=== PATIENT | female | born 1940 | race Caucasian/White ===

== ENCOUNTER → 2016-11-25 | Outpatient (CLI) | payer OTHER ==
[~2016-11-25] MED LIST: ATEN-173 PO; CHOL100027 PO; CRS/10 PO; ESCI1TAB6 PO; GABA-113 PO; HYDR25TA4 PO; IBUP600T44 PO; LOSA1TAB PO; MELO15TA4 PO; OMEG10002 PO; VITBC PO
--- NOTE | 2016-11-26 12:41 | MAMMOGRAPHY REPORT ---
BILATERAL DIGITAL SCREENING MAMMOGRAM WITH CAD: 11/25/2016 CLINICAL HISTORY: Routine screening. Patient has no complaints. TECHNIQUE: Bilateral CC and MLO views were obtained. Current study was also evaluated with a Comput er Aided Detection (CAD) system. COMPARISON: Comparison is made to exams dated: 11/22/2015 mammogram, 11/21/2014 mammogram, 11/01/2013 m ammogram, and 10/29/2012 mammogram - [facility]. BREAST COMPOSITION: There are scattered areas of fibroglandular density in both breasts. FINDINGS: There are scattered benign-appearing microcalcifications in the breasts. Stable nodulari ty within the left breast. No new suspicious mass, architectural distortion or cluster of microcalc ifications is seen. IMPRESSION: ACR BI-RADS CATEGORY 1: NEGATIVE There is no mammographic evidence of malignancy. A 1 year screening mammogram is recommended. The p atient will receive written notification of the results. Approximately 10% of breast cancers are not detected with mammography. A negative mammographic repor t should not delay biopsy if a clinically suggestive mass is present. Alona Coulter M.D. ay/:11/25/2016 15:59:35 Food And Beverage Service Manager: Maggie Romero, [facility] letter sent: Normal 1/2 BI-RADS Code: ACR BI-RADS Category 1: Negative
== END | disposition home or self-care (01) ==
LOC: C.MAMM 08:24
PROVIDERS: ATTEND Student in an Organized Health Care Education/Training Program
DX: Z12.31 Encounter for screening mammogram for malignant neoplasm of breast (principal)

== ENCOUNTER → 2017-11-26 | Outpatient (CLI) | payer OTHER ==
[~2017-11-26] MED LIST changes: -MELO15TA4 PO
--- NOTE | 2017-11-26 15:29 | MAMMOGRAPHY REPORT ---
BILATERAL DIGITAL SCREENING MAMMOGRAM TOMOSYNTHESIS WITH CAD: 11/26/2017 CLINICAL HISTORY: Routine screening. Patient has no complaints. TECHNIQUE: Breast tomosynthesis in addition to standard 2D mammography was performed. Current study was also evaluated with a Computer Aided Detection (CAD) system. COMPARISON: Comparison is made to exams dated: 11/25/2016 mammogram, 11/22/2015 mammogram, 11/21/2014 mamm ogram, 11/01/2013 mammogram, 10/29/2012 mammogram, and 10/28/2011 mammogram - [facility] enter. BREAST COMPOSITION: There are scattered areas of fibroglandular density in both breasts. FINDINGS: There is a grouping of microcalcifications in the upper outer middle one third of the righ t breast, for which additional spot magnification views are recommended. No other suspicious mass, architectural distortion, asymmetry or cluster of microcalcifications is se en bilaterally. There are a few other scattered benign-appearing microcalcifications and stable nodu larity in the left breast. IMPRESSION: ACR BI-RADS CATEGORY 0: INCOMPLETE EVALUATION: NEED ADDITIONAL IMAGING EVALUATION The grouping of microcalcifications in the right upper outer breast needs additional evaluation. The patient will be called to schedule an appointment. Approximately 10% of breast cancers are not detected with mammography. A negative mammographic report should not delay biopsy if a clinically suggestive mass is present. Alona Coulter M.D. ay/:11/26/2017 09:00:27 Multilith Operator: Lary DIMAS(Frida)(Leatha), [facility] letter sent: Addl Imaging 0 BI-RADS Code: ACR BI-RADS Category 0: Incomplete Evaluation: Need Additional Imaging Evaluation
== END | disposition home or self-care (01) ==
LOC: C.MAMM 08:28
PROVIDERS: ATTEND Student in an Organized Health Care Education/Training Program
DX: Z12.31 Encounter for screening mammogram for malignant neoplasm of breast (principal); R92.0 Mammographic microcalcification found on diagnostic imaging of breast

== ENCOUNTER → 2017-12-02 | Outpatient (CLI) | payer OTHER ==
--- NOTE | 2017-12-02 13:14 | Discharge Instructions ---
Discharge Instructions Procedure Procedure Date: Dec 02, 2017. Reason for visit: Right Microcalcifications. Discharge Discharge Date: Dec 02, 2017. Discharge Diagnosis: post right breast stereotactic guided biopsy Instructions Activity Recommendations: Additional Limitations (see below) Return to School/Work: no limitations Recommended Home Diet: No Limitations Provider Instructions: ACTIVITY RECOMMENDATIONS: * No lifting, pushing, pulling or exercising the affected side for three days. RETURN TO SCHOOL/WORK: * You may return to work/school after the procedure, but do not perform any strenuous activities for 24 to 48 hours. MEDICATIONS: * Tylenol (two 325 mg) every four to six hours if needed for mild pain (if not allergic to Tylenol). DIET: * Resume previous diet. SPECIAL CARE INSTRUCTIONS: * Keep biopsy site dry for 24 hours. May shower after 24 hours, but do not soak (bathe) incision. * May remove Tegaderm (plastic patch) tomorrow AFTER showering. * Leave the steri-strips on for one week. Allow the steri-strips to fall off by themselves. If not off after one week, you may remove them. You may place a Bandaid crosswise over the strips, if desired. * Apply ice 10 minutes on and 10 minutes off as needed. * Wear a bra at bedtime to sleep more comfortably for 2-3 days. * Your referring physician should have the results after approximately 5 to 7 business days. * Call for unusual bleeding, fever, drainage, etc or if you have any questions call [phone] during normal business hours or after hours call Dr Coulter, . FOLLOW UP VISIT: Follow-up with Referring Physician as scheduled. Allergies Coded Allergies: Tetanus Toxoid (Verified Allergy, Unknown, SEVERE LOCAL EDEMA, 06/12/17) SEVERE LOCAL EDEMA [place] Recommendations: Call your doctor if: * Temperature above 101 degrees * Pain not relieved by pain medicine ordered * There is increased drainage or redness from any incision * You have any unanswered questions or concerns. Your Doctors Instructions noted above were prepared by provider Alona Coulter. Patient Signature Section: Patient Instructions Signature Page Mary Jane Zhou Patient (or Guardian) Signature/Date: I have read and understand the instructions given to me by my caregivers. Caregiver/RN/Doctor Signature/Date: The above-named patient and/or guardian has received patient instructions on this date. + Original Patient Signature Page (only) stays with chart. Please make copy for patient.
--- NOTE | 2017-12-02 14:30 | MAMMOGRAPHY REPORT ---
UNILATERAL RIGHT DIGITAL DIAGNOSTIC MAMMOGRAM: 12/02/2017 CLINICAL HISTORY: 76-year-old woman called back from screening mammography for grouped microcalcifica tions in the right upper outer quadrant. TECHNIQUE: Spot magnification right CC and ML views were obtained. COMPARISON: Comparison is made to exams dated: 11/26/2017 mammogram, 11/25/2016 mammogram, 11/22/2015 suma mogram, 11/21/2014 mammogram, 11/01/2013 mammogram, and 10/29/2012 mammogram - [facility]ter. BREAST COMPOSITION: There are scattered areas of fibroglandular density in the right breast. FINDINGS: There is a 4 mm grouping of coarse heterogeneous microcalcifications with associated focal asymmetry in the upper outer posterior right breast. The microcalcifications are slowly increased c omparing to prior mammograms and therefore indeterminate. Although this could represent a degenerati ng fibroadenoma or benign calcifications, a stereotactic guided biopsy is recommended for definitive characterization. IMPRESSION: ACR BI-RADS CATEGORY 4: SUSPICIOUS Right breast stereotactic guided biopsy is recommended for a 4 mm grouping of coarse heterogeneous ca lcifications with associated focal asymmetry in the upper outer posterior right breast. These results and recommendations were discussed with the patient and her [id number] at the time of the exam. She tentatively scheduled the biopsy prior to leaving our department. Approximately 10% of breast cancers are not detected with mammography. A negative mammographic report should not delay biopsy if a clinically suggestive mass is present. Alona Coulter M.D. ay/:12/02/2017 09:58:04 Senior Process Control Tech: Anum DIMAS(R)(Leatha), [facility] letter sent: Abnormal 4/5 BI-RADS Code: ACR BI-RADS Category 4: Suspicious
--- NOTE | 2017-12-04 09:07 | MAMMOGRAPHY REPORT ---
STEREOTACTIC GUIDED BIOPSY RIGHT BREAST: 12/02/2017 CLINICAL HISTORY: Indeterminate 4 mm cluster of coarse heterogeneous calcifications and associated no dular asymmetry in the right upper outer breast posteriorly. Patient presents for stereotactic biops y. COMPARISON: Comparison is made to exams dated: 11/26/2017 mammogram, 11/25/2016 mammogram, 11/22/2015 suma mogram, 11/21/2014 mammogram, 11/01/2013 mammogram, and 10/29/2012 mammogram - [facility] nter. PATIENT CONSENT: After explaining the risks, benefits and alternatives of the procedure to the patien t, informed consent was obtained both verbally and in writing. Specific risks include: Bleeding, inf ection, puncture of adjacent structure, pain, nontarget biopsy, sampling error, metal allergy and med ication reaction. PROCEDURE DESCRIPTION: A time-out was performed and the right breast was confirmed as the site of bio psy. The patient was placed prone on the stereotactic biopsy table and the breast was placed in later almedial compression. A software release engineer image was obtained that demonstrated the clustered microcalcifications in question. They are amenable to sterotactic biopsy. Then +15 and -15 stereo pair images were ob tained. The calcifications were targeted utilizing the coordinates obtained by the computer. The ski n was prepped with Betadine. 1% Lidocaine with and without epinipherine was administered as local ane sthesia. A small skin incision was made. Through the incision, the needle was inserted to the depth determined by the computer. 10 samples were obtained using a Appbymeiva 9-gauge vacuum-assisted biop sy device. The specimen radiograph demonstrated 1-2 telemarketing sales representative microcalcifications; 3 additional core biopsy samples were obtained and the additional samples contained numerous more microcalcificati ons therefore a dumbbell shaped metallic marker was placed at the biopsy site. There was no immediate complication. Hemostasis was achieved after several minutes of manual compression. The samples were sent to pathology in two appropriately labeled containers, "with calcifications" and "without calcif ications". All of the samples were obtained from the same single biopsy site. Postprocedure CC and ML views of the right breast were obtained. There is a new dumbbell-shaped biop sy marker clip, air pocket denoting the biopsy cavity and no significant hematoma in the upper outer posterior right breast at the site of the biopsied clustered calcifications with associated nodular a symmetry. IMPRESSION: STEREOTACTIC GUIDED BIOPSY Status post stereotactic guided biopsy of clustered coarse heterogeneous microcalcifications in the r ight upper outer quadrant posteriorly. A biopsy marker clip was placed at the site. The patient will receive notification of the biopsy results from her referring physician. Alona Coulter M.D. ay/:12/02/2017 13:40:20 Crab Fisherman: Maggie DIMAS(Frida)(Leatha), [facility]
== END | disposition home or self-care (01) ==
LOC: C.MAMM 09:21
PROVIDERS: ATTEND Student in an Organized Health Care Education/Training Program
DX: R92.0 Mammographic microcalcification found on diagnostic imaging of breast (principal)

== ENCOUNTER 2019-07-20 06:08 | Inpatient (IN) ==
--- NOTE | 2019-06-24 15:59 | PAT Medication Instructions ---
Medication Instructions Date of Service June 24, 2019 Home Medications atenolol 25 mg tablet 25 mg PO QAM atorvastatin 20 mg tablet 20 mg PO HS cholecalciferol (vitamin D3) 1,000 unit capsule 1,000 units PO QAM escitalopram 10 mg tablet 10 mg PO QAM fluticasone propionate 50 mcg/actuation nasal spray,suspension 2 sprays INTNAS DAILY PRN hydrochlorothiazide 25 mg tablet 25 mg PO QAM losartan 25 mg tablet 25 mg PO QAM montelukast 10 mg tablet 10 mg PO UD PRN vitamin B complex capsule 1 cap PO QAM ibuprofen 600 mg tablet 600 mg PO Q6H PRN acetaminophen [Tylenol Extra Strength] 1,000 mg PO QID PRN albuterol sulfate [Ventolin HFA] 2 puff INHALATION QID PRN gabapentin 300 mg PO BID lifitegrast [Xiidra] 1 drp OPHTHALMIC (EYE) Q12H ASK your surgeon for instructions ibuprofen 600 mg tablet 600 mg PO Q6H PRN DO NOT take the morning of surgery cholecalciferol (vitamin D3) 1,000 unit capsule 1,000 units PO QAM hydrochlorothiazide 25 mg tablet 25 mg PO QAM losartan 25 mg tablet 25 mg PO QAM montelukast 10 mg tablet 10 mg PO UD PRN vitamin B complex capsule 1 cap PO QAM Take morning of surgery With a small sip of water, OTHERWISE NOTHING TO EAT OR DRINK AFTER MIDNIGHT: atenolol 25 mg tablet 25 mg PO QAM escitalopram 10 mg tablet 10 mg PO QAM fluticasone propionate 50 mcg/actuation nasal spray,suspension 2 sprays INTNAS DAILY PRN (if needed) acetaminophen [Tylenol Extra Strength] 1,000 mg PO QID PRN (okay to take up to 4 hours prior to surgery if needed) albuterol sulfate [Ventolin HFA] 2 puff INHALATION QID PRN (use if needed; please bring with you to hospital day of surgery if possible) gabapentin 300 mg PO BID lifitegrast [Xiidra] 1 drp OPHTHALMIC (EYE) Q12H Take evening before surgery atorvastatin 20 mg tablet 20 mg PO HS fluticasone propionate 50 mcg/actuation nasal spray,suspension 2 sprays INTNAS DAILY PRN (if needed) acetaminophen [Tylenol Extra Strength] 1,000 mg PO QID PRN (if needed) albuterol sulfate [Ventolin HFA] 2 puff INHALATION QID PRN (if needed) gabapentin 300 mg PO BID lifitegrast [Xiidra] 1 drp OPHTHALMIC (EYE) Q12H Other Notes If you have any questions please call us at [phone] or [phone] or [phone] or [phone]
--- NOTE | 2019-06-25 14:25 | Anesthesiology Consultation ---
Date of Service June 25, 2019 Assessment & Plan (1) Encounter for pre-operative examination: Chart Review Chart Review: Acceptable Risk for Surgery and Patient seen in Pre Admission Testing Teaching & Discussion Pre-Anesthesia Teaching/Discussion Notes: Instructed NPO after midnight before surgery,except medications with 15 cc of water. Medication instructions provided according to the PAT guidelines. History Surgery Operation Date: 07/20/19 08:50 Proposed Procedures p Right Total Knee Arthroplasty - Duarte Lee MD Height/Weight Height: 5 ft Weight: 90.1 kg Allergies Allergy/AdvReac Type Severity Reaction Status Date / Time tetanus toxoid, adsorbed Allergy Unknown SEVERE Verified 06/18/19 08:47 LOCAL EDEMA metformin AdvReac Unknown FLU LIKE Verified 06/18/19 08:47 SYMPTOMS Medications Home Medications Medication Instructions Recorded Confirmed Last Taken atenolol 25 mg tablet 25 mg PO QAM 08/18/18 06/18/19 Unknown atorvastatin 20 mg tablet 20 mg PO HS 08/18/18 06/18/19 Unknown cholecalciferol (vitamin D3) 1,000 1,000 units PO QAM 08/18/18 06/18/19 Unknown unit capsule escitalopram 10 mg tablet 10 mg PO QAM 08/18/18 06/18/19 Unknown fluticasone propionate 50 2 sprays INTNAS DAILY PRN 08/18/18 06/18/19 Unknown mcg/actuation nasal spray,suspension hydrochlorothiazide 25 mg tablet 25 mg PO QAM 08/18/18 06/18/19 Unknown losartan 25 mg tablet 25 mg PO QAM 08/18/18 06/18/19 Unknown montelukast 10 mg tablet 10 mg PO UD PRN tab 08/18/18 06/18/19 Unknown vitamin B complex capsule 1 cap PO QAM 08/18/18 06/18/19 Unknown ibuprofen 600 mg tablet 600 mg PO Q6H PRN tab 09/17/18 06/18/19 Unknown acetaminophen [Tylenol Extra 1,000 mg PO QID PRN 06/18/19 06/18/19 Unknown Strength] albuterol sulfate [Ventolin HFA] 2 puff INHALATION QID PRN 06/18/19 06/18/19 Unknown gabapentin 300 mg PO BID 06/18/19 06/18/19 Unknown lifitegrast [Xiidra] 1 drp OPHTHALMIC (EYE) Q12H 06/18/19 06/18/19 Unknown Past Medical History Medical History Osteoarthritis GERD (gastroesophageal reflux disease) controlled Asthma stable Depression Hiatal hernia History of prediabetes diet controlled Hyperlipidemia Hypertension Exercise / Class Metabolic Activity III < 4 Walking/Shop/Light housework Past Family History Family History Family/Other Family history of diabetes mellitus Past Surgical History Surgical History History of total knee arthroplasty Left History of carpal tunnel release Right History of bladder repair surgery History of tonsillectomy and adenoidectomy History of cataract surgery R/L History of colonoscopy History of eyelid surgery B/L UPPER EYELIDS Past Anesthesia History No Hx of Anesthesia Complications and No Family Hx of Anesthesia Complications History of PONV No Hx of PONV and No Hx of Motion Sickness Social History Smoking Status: Former smoker Do You Dip or Chew Tobacco: No Smoking End Date: QUIT 45 YEARS AGO Hx Alcohol Use: Yes Alcohol type: beer and wine alcohol intake frequency: holidays/special occasions only Hx Substance Use: No Review of Systems Reflux controlled. Patient denies chest pain, shortness of breath, cough, wheezing, palpitations. Physical Exam Vital Signs VITALS BP 159/78 P 63 TEMP 98.2 SP02 93%RA RESP 20 PHYSICAL Full neck and c-spine range of motion. Full TMJ range of motion. TMD 2.5 finger breaths (small chin) Mallampati Score 3 Dentition: intact, several crowns on sides/molars Lungs: clear throughout to auscultation Cardiac: regular rate and rhythm, no murmurs noted Spine: normal Carotid arteries: negative bruit Extremities: no edema Testing Laboratory Results 06/25/19 14:50 06/25/19 14:50 PT 11.9 Seconds (9.0-12.0) 06/25/19 14:50 INR 1.2 (0.9-1.1) H 06/25/19 14:50 APTT 26.2 Seconds (21.0-31.0) 06/25/19 14:50 Blood Type O Positive 06/25/19 14:50 Antibody Screen NEGATIVE 06/25/19 14:50 Electrocardiogram Date: 06/25/19 SR with first degree AVB at 65bpm. Chest X-Ray Date: 06/25/19 Findings: + NAD Stress Test Date: 04/03/18 Type: DSE Stress ECHO/EKG negative for inducible ischemia. Borderline increased cLV wall t hickness. Grade II DD. LVEF 55-59%. Moderate MR. Occasional PAC's. Mild AV sclerosis. 109% MPHR.
--- NOTE | 2019-06-25 15:07 | XRay Report ---
XR chest Pre-admission PA/Lat HISTORY: Preop. COMPARISON: None. FINDINGS: The lungs are clear. The heart is normal in size. No pleural effusions. No pneumothorax. IMPRESSION: No acute process. Electronically signed by: Herbert Maravilla M.D. 06/25/2019 3:05 PM
[2019-06-25 15:49] LABS: Basophils # (auto) 0.03 K/uL (0-0.2); Basophils % (auto) 0.4 %; Eosinophils # (auto) 0.18 K/uL (0-0.5); Eosinophils % (auto) 2.1 %; Hematocrit (blood only) 40.8 % (37-47); Hemoglobin 13.3 g/dL (12.0-16.0); Immature Granulocytes # (auto) 0.02 K/uL (0.00-0.02); Immature Granulocytes % (auto) 0.2 %; Lymphocytes % (auto) 15.3 %; Mean Corpuscular Hemoglobin 29.6 pg (25-34); Mean Corpuscular Hgb Conc 32.6 g/dL (32-36); Mean Corpuscular Volume 90.7 fL (80-100); Mean Platelet Volume 9.6 fL (7.4-10.4); Monocytes # (auto) 0.52 K/uL (0.11-0.59); Monocytes % (auto) 6.1 %; Neutrophils # (auto) 6.42 K/uL (1.4-6.5); Neutrophils % (auto) 75.9 %; Platelet Count 263 K/uL (130-400); RDW Coefficient of Variation 13.5 % (11.5-14.5); RDW Standard Deviation 44.9 fL (36.4-46.3); White Blood Count 8.47 K/uL (4.8-10.8)
[2019-06-25 15:56] LABS: BUN Creatinine Ratio 28.2 (10-20); Blood Urea Nitrogen 20 mg/dl (7-18); C Reactive Protein < 0.29 mg/dl (0-0.29); Calcium 9.5 mg/dl (8.5-10.1); Carbon Dioxide 33 mmol/L (21-32); Chloride 101 mmol/L (98-107); Creatinine Clr Calc Pharmacy 63.5 ml/min; Est GFR (African American) 91.4; Est GFR (Non-African American) 78.9; Glucose 88 mg/dl (70-99); Potassium 3.6 mmol/L (3.5-5.1); Sodium 140 mmol/L (136-145)
[2019-06-25 16:01] LABS: INR 1.2 (0.9-1.1); Partial Thromboplastin Time 26.2 Seconds (21.0-31.0); Prothrombin Time 11.9 Seconds (9.0-12.0)
--- NOTE | 2019-07-17 08:25 | History and Physical Report ---
DATE OF ADMISSION: 07/20/2019 CHIEF COMPLAINT: Right knee pain. HISTORY OF PRESENT ILLNESS: A 78-year-old white female from [place] who presents specifically for surgical treatment of her right knee. She has got a long history of knee problems and had a left knee replacement done by Dr. Matthew in the past. She had a partial knee replacement in 2002 which was revised to a full knee replacement in 2004. She has done okay with this. She has had some intermittent IT band symptoms, treated with injections and getting along okay. Over the past year, she has developed increased pain and discomfort in her right knee. It is global pain. It is constant pain. The more she walks, the more it hurts. We treated with injections, which helped her temporarily only. This has become less successful over time. The more she walks, the more she limps. She has nighttime pain. She has difficulty going up and down steps. She now would like to proceed with knee replacement on this side. PAST MEDICAL HISTORY: 1. Hypertension. 2. Elevated cholesterol. 3. Asthma. 4. Sleep apnea. 5. Gastroesophageal reflux disease. 6. Hiatal hernia. 7. Obesity with BMI of 40. 8. Back pain. PAST SURGICAL HISTORY: Previous surgeries include: 1. Left partial knee replacement in 2002. 2. Left total knee replacement in 2004. ALLERGIES: None. CURRENT MEDICINES: Include: 1. Singulair. 2. Prilosec. 3. Flonase. 4. Lexapro. 5. Hydrochlorothiazide 6. Neurontin. 7. Lipitor. 8. Tenormin. 9. Cozaar. 10. Advair Diskus. 11. Restasis eyedrops. 12. Vitamin D. 13. Bumex. SOCIAL HISTORY: A 78-year-old white female. She is . Lives in [place]. FAMILY HISTORY: Significant for heart disease. REVIEW OF HISTORY: Negative for diabetes, neurologic problem, vascular problems, bleeding disorders. No chest pain or shortness of breath. No history of DVT or PE. No known bleeding problems. PHYSICAL EXAMINATION: GENERAL: Physical examination reveals a healthy, pleasant elderly female, but looks to be in pretty good health. HEENT: Benign. NECK: Supple, no lymphadenopathy. LUNGS: Clear to auscultation. HEART: Has a regular rate and rhythm. ABDOMEN: Soft, nontender, nondistended. EXTREMITIES: Grossly neurovascularly intact except as follows: Examination of the right knee reveals the patient walks with slight bit of a limp. She has got varus alignment to her knee. She is tender over the medial joint line. Moderate soft tissue envelope. Small knee effusion. Range of motion is 5 degrees short of full extension and 120 degrees of flexion. There is no instability. She is neurologically intact. Examination of the left knee reveals a well-healed incision. No significant swelling. She is tender over the IT band palpably. Range of motion 0-120. Good straight leg raise. X-RAYS: X-rays of the right knee reviewed. It shows advanced right knee DJD. She has complete loss of her medial joint space. She has subchondral sclerosis. She has got osteophytes of the medial femoral condyle and medial tibial plateau. The left knee replacement looks to be in acceptable position without signs of problems. ASSESSMENT: A 78-year-old white female status post a left knee replacement in the past with advanced right knee degenerative joint disease. She has failed conservative treatment and would like to have her right knee replaced. PLAN: We will take her to the operating room and do a right total knee replacement. The risks and benefits of this procedure were explained to the patient including but not limited to DVT, PE, , infection, neurological injury, vascular injury, bleeding problem, pain, limited range of motion, stiffness, failure to relieve her symptoms, incomplete relief of symptoms, need for further surgery in future, fracture, leg length inequality, nerve palsy, need for blood transfusion, etc. The patient understands and desires to proceed. Informed consent was obtained. We did talk about discharge plans. She is planning to be discharged to home using [facility] home health program.
[~2019-07-20 06:08] MED LIST changes: +ACETAMINOPHEN 500 MG TAB PO SCH; -ATEN-173 PO; +BUPIVACAINE LIPOSOME/PF 266 MG, BUPIVACAINE/EPINEPHRINE 50 ML, SODIUM CHLORIDE 0.9% 30 ... INFIL SCH; +CEFAZOLIN 2000MG 2,000 MG/15 ML SYR IV SCH; -CHOL100027 PO; -CRS/10 PO; -ESCI1TAB6 PO; +FAMOTIDINE 20 MG TAB PO SCH; -GABA-113 PO; +GABAPENTIN 300 MG CAP PO SCH; -HYDR25TA4 PO; -IBUP600T44 PO; -LOSA1TAB PO; +LR 500ML BOLUS, THEN 15ML/HR IV SCH; +LR 60ML/HR IV SCH; -OMEG10002 PO; +OXYCODONE HCL 10 MG TABCR (OXYCONTIN) PO SCH; -VITBC PO
[2019-07-20] MEDS ORDERED: TRANEXAMIC ACID 1,000 MG **IV Intra-op IV SCH (06:30)
--- NOTE | 2019-07-20 06:51 | History & Physical Bridge Note ---
Date of Service July 20, 2019 History & Physical Bridge Note I have examined the patient, reviewed the History & Physical and in the interval since the performance of the History & Physical I have noted the following changes of clinical significance: no changes noted
[2019-07-20] MEDS ORDERED: BUPIVACAINE 0.5 % 5 MG/1 ML PF 10ML VIAL ONE (07:12)
[2019-07-20] MEDS ORDERED: ROPIVACAINE 0.5% 5 MG/ML 30 ML VIAL ONE (07:12)
[2019-07-20] MEDS ORDERED: MIDAZOLAM HCL 1 MG/ML 2ML VIAL ONE (07:20)
[2019-07-20] MEDS ORDERED: fentaNYL citrate 100 MCG/2 ML VIAL ONE (07:20)
[2019-07-20] MEDS ORDERED: ATROPINE SULFATE 0.1 MG/ML 10ML SYR IV PRN (08:19)
[2019-07-20] MEDS ORDERED: ePHEDrine sulfate 50 MG/ML AMP IV PRN (08:19)
[2019-07-20] MEDS ORDERED: SODIUM CHLORIDE 0.9% PF 50 ML VIAL ONE (08:49)
[2019-07-20] MEDS ORDERED: BUPIVACAINE LIPOSOME 1.3% 266 MG/20 ML VIAL ONE (08:49)
[2019-07-20] MEDS ORDERED: BACITRACIN INJ 50,000 UNIT VIAL ONE (08:50)
[2019-07-20] MEDS ORDERED: EPINEPHrine INJ 1 MG/ML AMP ONE (08:50)
[2019-07-20] MEDS ORDERED: BUPIVACAINE 0.25% 30 ML VIAL ONE (08:50)
[2019-07-20] MEDS ORDERED: ePHEDrine sulfate 50 MG/ML SYR ONE (09:23)
[2019-07-20] MEDS ORDERED: PROPOFOL IV EMULSION 10 MG/ML 20 ML VIAL IV ONE ×2 (09:35→10:07)
[2019-07-20] MEDS ORDERED: LIDOCAINE HCL 2% 2 ML VIAL/AMP(20MG/ML) INFIL ONE (09:35)
--- NOTE | 2019-07-20 10:47 | Post Operative Brief Note ---
PG Immediate Post Op with CF Date of Surgery July 20, 2019 Pre & Post Diagnosis Operation Date: 07/20/19 08:50 Pre-Op Diagnosis: Right Knee Advanced Degenerative Joint Disease Post-Op Diagnosis: Right Knee Advanced Degenerative Joint Disease Procedure Operation Date: 07/20/19 08:50 Actual Procedures p Right Total Knee Arthroplasty(Right) - Duarte Lee MD Surgeon Duarte Lee MD Seal Extrusion Operator Ivonne, PAC Estimated Blood Loss 50 Findings Consistent with Post-Op Diagnosis Fluids 1500 cc Specimens Specimen Description: A. Right Knee Bone and Tissue Drains Liu Catheter (A 16 Peruvian liu catheter was inserted by LEONOR Diez, without difficulty, clear yellow urine obtained, output to be monitored by Anesthesia.) Anesthesia Type Spinal MAC Complications none Disposition Accompanied Patient To Recovery: No Disposition: Recovery Room
--- NOTE | 2019-07-20 11:41 | XRay Report ---
RIGHT KNEE 2 VIEWS History: Right total knee arthroplasty. Degenerative arthritis. Postop. FINDINGS: The patient is status post a right total knee arthroplasty. The hardware is intact. No frac ture or dislocation. Skin michelle are in place. IMPRESSION: Right total knee arthroplasty. No evidence for hardware complication. Electronically signed by: Herbert Maravilla M.D. 07/20/2019 11:40 AM
--- NOTE | 2019-07-20 11:43 | Anesthesiology Progress Note ---
Date of Service July 20, 2019 Anesthesia Post Procedure Vital Signs Vital Signs: Temp Pulse Pulse Resp BP Pulse Ox 07/20/19 11:40 56 L 15 141/67 H 99 07/20/19 11:30 36.4 C L 57 L 13 137/57 L 98 07/20/19 11:20 55 L 15 144/71 H 99 07/20/19 11:10 62 25 H 143/79 H 98 07/20/19 11:03 57 L 14 150/64 H 100 07/20/19 10:53 36.0 C L 65 14 105/58 L 94 07/20/19 06:57 36.5 C 58 L 20 142/59 H 93 Transfer of Care Handoff Completed per policy Notes Mental Status: alert / awake / arousable and participated in evaluation Patient Amnestic to Procedure: Yes Nausea / Vomiting: adequately controlled Pain: adequately controlled Airway Patency, RR, SpO2: stable & adequate BP & HR: stable & adequate Hydration State: stable & adequate Neuraxial Anesthesia: was administered and sensory block is resolving Anesthetic Complications: no major complications apparent
[2019-07-20] MEDS ORDERED: BISACODYL 10 MG SUPP PR PRN (12:04)
[2019-07-20] MEDS ORDERED: ALUMINUM/MAGNESIUM SUSP 30 ML UDC PO PRN (12:04)
[2019-07-20] MEDS ORDERED: NALOXONE HCL 0.4 MG/1 ML VIAL/CARP IV PRN (12:04)
[2019-07-20] MEDS ORDERED: HYDROmorphone INJ 0.5 MG/0.5 ML SYR IV PRN (12:04)
[2019-07-20] MEDS ORDERED: MONTELUKAST SODIUM 10 MG TABLET PO PRN (12:04)
[2019-07-20] MEDS ORDERED: ONDANSETRON INJ 2 MG/ML 2 ML VIAL IV PRN (12:04)
[2019-07-20] MEDS ORDERED: FLUTICASONE PROPIONATE NA SPR 16 GM BTL PRN (12:04)
[2019-07-20] MEDS ORDERED: MAGNESIUM HYDROXIDE SUSP 30 ML UDC PO PRN (12:04)
[2019-07-20] MEDS ORDERED: ALBUTEROL HFA 8 GM INHALER INH PRN (12:04)
[2019-07-20] MEDS ORDERED: METOCLOPRAMIDE HCL INJ 5 MG/ML 2 ML VIAL IV PRN (12:04)
[2019-07-20] MEDS: SODIUM CHLORIDE 0.9% 1000ML 1,000 ML IV SCH (13:22)
[2019-07-20] MEDS: KETOROLAC TROMETHAMINE 15 MG/ML VIAL IV SCH ×2 (13:27→18:31)
[2019-07-20] MEDS: TRAMADOL HCL 50 MG TABLET PO PRN (13:27)
[2019-07-20] MEDS: ACETAMINOPHEN 500 MG TAB PO SCH ×2 (13:27→21:13)
[2019-07-20] MEDS: ASCORBIC ACID 500 MG TAB PO SCH (16:39)
[2019-07-20] MEDS: FERROUS GLUCONATE 324 MG TAB PO SCH (16:39)
[2019-07-20] MEDS: CEFAZOLIN 2000MG 2,000 MG/15 ML SYR IV SCH (16:39)
[2019-07-20] MEDS ORDERED: TRANEXAMIC ACID 1,000 MG in 0.9 % SODIUM CHLORIDE 100 ML IV SCH (17:00)
[2019-07-20] MEDS: DOCUSATE SODIUM 100 MG CAP PO SCH (20:36)
[2019-07-20] MEDS: GABAPENTIN 300 MG CAP PO SCH (20:36)
[2019-07-20] MEDS: ATORVASTATIN 20 MG TAB PO SCH (20:36)
[2019-07-20] MEDS: SENNA 8.6 MG TAB PO SCH (20:36)
[2019-07-20] MEDS: ASPIRIN 81 MG ECTAB PO SCH (20:36)
[2019-07-20] MEDS: LIFITEGRAST OP SCH (20:36)
--- NOTE | 2019-07-20 21:03 | Progress Note ---
DATE: 07/20/2019 SUBJECTIVE: A 78-year-old white female postop from right knee replacement. She is doing well. Really not having any pain yet. No chest pain or shortness of breath. Not feeling dizzy or lightheaded. OBJECTIVE: VITAL SIGNS: Temperature 36.6. Vital signs stable. GENERAL: Shows a pleasant, middle-aged female. She is sitting up in her bedside chair, looks comfortable. LUNGS: Clear to auscultation. HEART: Regular rate and rhythm. ABDOMEN: Soft, nontender, nondistended. EXTREMITIES: Grossly neurovascularly intact except as follows: Examination of the right lower extremity reveals the dressing to be clean, dry and intact. Leg is well aligned. She can dorsiflex and plantarflex her foot appropriately. She is neurologically intact. X-RAYS: X-ray of the right knee from recovery room is reviewed. It shows cemented posterior stabilized total knee arthroplasty. Components looked to be in good position. No signs of problems. ASSESSMENT: A 78-year-old white female postoperative from right knee replacement, doing well. Pain is controlled. She is neurologically intact. PLAN: 1. DVT prophylaxis including thigh-high TEDs, SCDs, and aspirin twice a day. 2. PT/OT. Weight bear as tolerated. Right total knee protocol. 3. Pain control, doing well with current pain regimen. 4. IV antibiotics x24 hours. 5. Disposition: She is planning to be discharged to home with some home health once adequately recovered and medically stable.
--- NOTE | 2019-07-20 23:27 | Operative Report ---
DATE OF OPERATION: 07/20/2019 SURGEON: Duarte Lee MD TURN DOWN ATTENDANT: LEONOR Barker PREOPERATIVE DIAGNOSIS: Right knee degenerative joint disease. POSTOPERATIVE DIAGNOSIS: Right knee degenerative joint disease. PROCEDURE PERFORMED: Right cemented posterior stabilized total knee arthroplasty. COMPLICATIONS: None. ESTIMATED BLOOD LOSS: 50 mL. FLUID REPLACEMENT: 1500 mL crystalloid fluid replacement. TOURNIQUET TIME: 52 minutes at 300 mmHg. ANESTHESIA: Spinal with adductor canal block. DRAINS: None. SPECIMENS: Right knee sent for pathology. OPERATIVE INDICATIONS: The patient is a 78-year-old fairly active female who has had a long history of knee problems. She underwent a left knee arthroplasty done elsewhere many years ago and has done okay from this. She continued to be bothered by right knee pain. It has gradually gotten worse over time. She failed conservative treatment and elected to proceed with surgical treatment. OPERATIVE FINDINGS: Operative findings revealed advanced right knee DJD with extensive grade 4 changes in the medial and patellofemoral compartments. She had a varus deformity to her knee and about 10-degree flexion contracture. Moderate to large knee joint effusion. Osteophytes in the medial compartment. OPERATIVE IMPLANTS: Operative implants consisted of: 1. A Biomet Vanguard size 60 right posterior stabilized femoral component. 2. A Biomet size 63 tibial tray. 3. A 10 mm posterior stabilized polyethylene insert. 4. A 28 x 8 all poly patella. OPERATIVE PROCEDURE: The patient was taken to the operating room, identified and placed on the operating table in supine position. All contact areas were appropriately padded. IV antibiotics provided by anesthesia team. Spinal anesthetic and adductor canal block had been provided in the holding area. Farfan catheter was placed in sterile fashion. A right thigh tourniquet was then placed and the right lower extremity was then prepped and draped in usual sterile fashion. The right leg was elevated and exsanguinated with an Esmarch and tourniquet was placed at 300 mmHg. An anterior approach of the right knee was then performed through a longitudinal incision centered over the patella. Sharp dissection was carried through subcutaneous tissue down below the extensor mechanism. A medial parapatellar arthrotomy incision was made. Some subperiosteal dissection was carried out medially. The fat pad resected from beneath the patellar tendon. The lateral patellofemoral ligament was released. The patella was everted and knee was flexed. The osteophytes were taken off the distal femur. The ACL and PCL were then released from distal femur and the tibia subluxated anteriorly. External tibial alignment jig was then placed in the anterior face of the tibia and adjusted 14 mm medially. Proximal tibial cut was made to remove about a millimeter or 2 of bone from the most deficient aspect of the medial tibial plateau. Tibia was sized to a size 63. Attention was then drawn to the femur. The distal femur was entered with a sharp drill bit. Intramedullary canal was suctioned. A right 5-degree valgus cutting guide was placed. Distal femoral cutting block was pinned in place. Distal femoral cut was made to take an additional 3 mm of bone off the distal femur. The femur was then sized to a size 60. We downsized this just slightly. The AP cutting block was pinned parallel to the epicondylar axis, which was 3 degrees of external rotation. The anterior cut, anterior chamfer cut, posterior cut, posterior chamfer cuts were made. Box cutting guide was placed and adjusted slightly lateral and the box cut was made. The knee was flexed. The remnants of the medial and lateral menisci were excised. The osteophytes were taken off the posterior aspect of the femur. Trial femoral component was placed. Tibial tray was pinned in maximum external rotation and drill and stem punch were used to create defect in proximal tibia for the tibial tray. The knee was then trialed and the 10 mm insert fit most appropriately. Attention was then drawn to patella. The patella was cleaned of all soft tissues. Patella was quite thin and measured 17 mm in thickness. It was cut down to 12. It was sized to a size 28 patella. Lug holes were drilled for a 28 patella. Lateral osteophyte was removed. Patella button was placed. Knee was taken through range of motion, patella tracked nicely with no thumbs test. Attention was then drawn toward placement of permanent components. All trial components were removed. Bone plug was placed in the distal femur to limit blood loss. A double batch of Palacos G cement was mixed. A Biomet Vanguard size 60 right posterior stabilized femoral component, Biomet size 63 tibial tray, 10 mm posterior stabilized polyethylene insert, and a 28 x 8 all poly patella then cemented in place. Knee was brought down to full extension until cement hardened. Final cement check was then performed. Pericapsular tissues were injected with a total of 100 mL of combination of 20 mL of Exparel, 30 mL of normal saline, 50 mL of 0.25% Marcaine with epinephrine. The patient did receive 1 gram of tranexamic acid. The tourniquet was then let down for a tourniquet time of 52 minutes. Hemostasis was assured with use of electrocautery. Extensor mechanism was then closed with combination of #1 PDS suture and #1 Vicryl suture in [id number] fashion. Extensor mechanism was checked and found to be intact. The subcutaneous tissues were then closed with #2 Dexon suture in a buried interrupted fashion. Skin was closed with skin michelle. Leg was then cleaned, dried and sterile dressing with Xeroform, 4 x 4, sterile cast padding and Travis bandage were applied. The patient then transferred to the recovery room in stable condition. The patient tolerated the procedure well with no complication. All needle and sponge counts were correct at the end of the operation. I attest to the content of the Intraoperative Record and any orders documented therein. Any exception s are noted below.
[2019-07-21] MEDS: CEFAZOLIN 2000MG 2,000 MG/15 ML SYR IV SCH (01:02)
[2019-07-21] MEDS: KETOROLAC TROMETHAMINE 15 MG/ML VIAL IV SCH ×4 (01:02→18:02)
[2019-07-21] MEDS: SODIUM CHLORIDE 0.9% 1000ML 1,000 ML IV SCH (01:24)
[2019-07-21 05:50] LABS: Hematocrit (blood only) 34.5 % (37-47); Hemoglobin 11.1 g/dL (12.0-16.0); Mean Corpuscular Hemoglobin 29.5 pg (25-34); Mean Corpuscular Hgb Conc 32.2 g/dL (32-36); Mean Corpuscular Volume 91.8 fL (80-100); Mean Platelet Volume 9.2 fL (7.4-10.4); Platelet Count 205 K/uL (130-400); RDW Coefficient of Variation 14.1 % (11.5-14.5); RDW Standard Deviation 47.3 fL (36.4-46.3); Red Blood Count 3.76 M/uL (4.2-5.4); White Blood Count 7.19 K/uL (4.8-10.8)
[2019-07-21] MEDS: ACETAMINOPHEN 500 MG TAB PO SCH ×3 (06:15→21:28)
[2019-07-21 06:24] LABS: BUN Creatinine Ratio 21.3 (10-20); Calcium 8.2 mg/dl (8.5-10.1); Creatinine Clr Calc Pharmacy 64.3 ml/min; Est GFR (African American) 91.4; Est GFR (Non-African American) 78.9; Potassium 3.8 mmol/L (3.5-5.1)
[2019-07-21] MEDS: TRAMADOL HCL 50 MG TABLET PO PRN ×3 (07:18→21:30)
--- NOTE | 2019-07-21 08:24 | Anesthesiology Progress Note ---
Date of Service July 21, 2019 Anesthesia Post Procedure Vital Signs Vital Signs: Temp Pulse Pulse Resp BP Pulse Ox 07/21/19 07:43 36.7 C 59 L 18 132/75 91 07/21/19 03:57 36.7 C 61 18 121/76 93 07/20/19 23:27 36.6 C 64 18 113/65 92 07/20/19 19:16 36.6 C 66 18 105/55 L 92 07/20/19 14:50 36.6 C 62 18 128/66 91 07/20/19 14:00 64 16 105/57 L 96 07/20/19 12:55 57 L 16 136/70 98 07/20/19 12:04 60 16 121/75 98 07/20/19 11:50 36.3 C L 56 L 16 156/61 H 96 07/20/19 11:40 56 L 15 141/67 H 99 07/20/19 11:30 36.4 C L 57 L 13 137/57 L 98 07/20/19 11:20 55 L 15 144/71 H 99 07/20/19 11:10 62 25 H 143/79 H 98 07/20/19 11:03 57 L 14 150/64 H 100 07/20/19 10:53 36.0 C L 65 14 105/58 L 94 Pain Intensity Right Knee: Pain Intensity: 6 Notes Mental Status: alert / awake / arousable and participated in evaluation Patient Amnestic to Procedure: Yes Nausea / Vomiting: adequately controlled Pain: adequately controlled Airway Patency, RR, SpO2: stable & adequate BP & HR: stable & adequate Hydration State: stable & adequate Neuraxial Anesthesia: was administered and sensory block resolved Anesthetic Complications: no major complications apparent and Pt Satisfied with anesthetic care
[2019-07-21] MEDS: FERROUS GLUCONATE 324 MG TAB PO SCH ×2 (08:31→18:03)
[2019-07-21] MEDS: ASCORBIC ACID 500 MG TAB PO SCH ×2 (08:32→18:03)
[2019-07-21] MEDS: DOCUSATE SODIUM 100 MG CAP PO SCH ×2 (08:32→21:27)
[2019-07-21] MEDS: ASPIRIN 81 MG ECTAB PO SCH ×2 (08:33→21:28)
[2019-07-21] MEDS: LOSARTAN POTASSIUM 25 MG TAB PO SCH (08:33)
[2019-07-21] MEDS: hydroCHLOROthiazide 25 MG TAB PO SCH (08:33)
[2019-07-21] MEDS: MULTIVITAMIN TAB PO SCH (08:34)
[2019-07-21] MEDS: GABAPENTIN 300 MG CAP PO SCH ×2 (08:34→21:27)
[2019-07-21] MEDS: ESCITALOPRAM OXALATE 10 MG TAB PO SCH (08:34)
[2019-07-21] MEDS: ATENOLOL 25 MG TABLET PO SCH (08:35)
[2019-07-21] MEDS: LIFITEGRAST OP SCH ×2 (08:35→21:27)
[2019-07-21] MEDS: VITAMIN B COMPLEX TAB PO SCH (08:36)
[2019-07-21] MEDS: CHOLECALCIFEROL 1,000 UNITS TAB PO SCH (08:36)
--- NOTE | 2019-07-21 08:48 | Progress Note ---
DATE: 07/21/2019 SUBJECTIVE: A 78-year-old white female postop day 1 from a right knee replacement. She is doing pretty well. Had a pretty good night. Pain is controlled. No chest pain or shortness of breath. Not feeling dizzy or lightheaded. OBJECTIVE: VITAL SIGNS: Temperature 36.7. Vital signs stable. GENERAL: Shows a pleasant, middle-aged female. She is sitting up in bed and just starting to eat breakfast. EXTREMITIES: Examination of the right leg reveals the leg to be well aligned. Dressing is clean, dry and intact. She can dorsiflex and plantarflex her foot appropriately. She is neurologically intact. LABORATORY DATA: Hemoglobin 11.1. Hematocrit 34.5. Electrolytes are stable. ASSESSMENT: A 78-year-old white female postoperative day 1 from a right knee replacement, doing pretty well. Pain is controlled. She is neurologically intact. PLAN: 1. DVT prophylaxis including thigh-high TEDs, SCDs, and aspirin twice a day. 2. PT/OT. Weight bear as tolerated. Right total knee protocol. 3. Pain control, doing well with current pain medicine. 4. Disposition: Plan to discharge her home with some home health once adequately recovered and medically stable.
[2019-07-21] MEDS: ATORVASTATIN 20 MG TAB PO SCH (21:27)
[2019-07-21] MEDS: SENNA 8.6 MG TAB PO SCH (21:28)
[2019-07-22] MEDS: KETOROLAC TROMETHAMINE 15 MG/ML VIAL IV SCH ×2 (01:23→06:27)
[2019-07-22] MEDS: ACETAMINOPHEN 500 MG TAB PO SCH (06:27)
[2019-07-22 07:32] VITALS: BP 127/68; TEMP 97.7; O2SAT 91
[2019-07-22] MEDS: FERROUS GLUCONATE 324 MG TAB PO SCH (08:29)
[2019-07-22] MEDS: ASCORBIC ACID 500 MG TAB PO SCH (08:30)
[2019-07-22] MEDS: ESCITALOPRAM OXALATE 10 MG TAB PO SCH (08:30)
[2019-07-22] MEDS: VITAMIN B COMPLEX TAB PO SCH (08:30)
[2019-07-22] MEDS: MULTIVITAMIN TAB PO SCH (08:31)
[2019-07-22] MEDS: LOSARTAN POTASSIUM 25 MG TAB PO SCH (08:31)
[2019-07-22] MEDS: CHOLECALCIFEROL 1,000 UNITS TAB PO SCH (08:31)
[2019-07-22] MEDS: ATENOLOL 25 MG TABLET PO SCH (08:31)
[2019-07-22] MEDS: DOCUSATE SODIUM 100 MG CAP PO SCH (08:31)
[2019-07-22] MEDS: hydroCHLOROthiazide 25 MG TAB PO SCH (08:32)
[2019-07-22] MEDS: GABAPENTIN 300 MG CAP PO SCH (08:32)
[2019-07-22] MEDS: ASPIRIN 81 MG ECTAB PO SCH (08:32)
[2019-07-22] MEDS: LIFITEGRAST OP SCH (08:32)
--- NOTE | 2019-07-22 08:51 | Progress Note ---
DATE: 07/22/2019 SUBJECTIVE: A 78-year-old white female postop day 2 from right knee replacement. She is doing pretty well. Pain is controlled. Had a reasonable night. No chest pain or shortness of breath. Not feeling dizzy or lightheaded. OBJECTIVE: VITAL SIGNS: Temperature 36.8. Vital signs stable. GENERAL: Physical examination shows a pleasant elderly female. She is lying in bed, looks quite comfortable. EXTREMITIES: Examination of the right leg reveals the dressing to be clean, dry and intact. Calf is soft and supple. She can dorsiflex and plantarflex her foot appropriately. ASSESSMENT: A 78-year-old white female postop day 2 from right knee replacement, doing pretty well. Pain is controlled. She is neurologically intact. PLAN: 1. DVT prophylaxis including thigh-high TEDs, SCDs, and aspirin twice a day. 2. PT/OT. Weight bear as tolerated. Right total knee protocol. 3. Pain control, doing well with current pain regimen. 4. Disposition: Plan to discharge to home with some home health later today.
[2019-07-22 10:50] VITALS: PULSE 64
--- NOTE | 2019-07-28 11:36 | Discharge Summary ---
ADMITTING PHYSICIAN AND SURGEON: Dr. Duarte Lee. ADMITTING DIAGNOSIS: Right knee degenerative joint disease. SURGERY PERFORMED: Right total knee arthroplasty. SECONDARY DIAGNOSES: Hypertension, elevated cholesterol, asthma, sleep apnea, gastroesophageal reflux disease, hiatal hernia, obesity and back pain. CONSULTS: None obtained. HISTORY AND PHYSICAL EXAMINATION: Well documented in the patient's chart. HOSPITAL COURSE: The patient was admitted on 07/20/2019 underwent total knee arthroplasty, tolerated the procedure well. There were no complications. She was transferred to the PACU postoperatively and later to the orthopedic floor for further care. She was given Ancef for antibiotic prophylaxis, AIDEN stockings, SCDs and aspirin for DVT prophylaxis. Hemoglobin, hematocrit and vital signs were monitored during her hospital stay and remained stable. She did not require any blood transfusions. There were no complications. On postoperative day 2 she was tolerating a regular diet, pain was controlled with oral pain medicine. She was participating in physical therapy. On postop day 2 she was discharged home, set up with home health services. She was given printed discharge instructions as well as new prescriptions for extra strength Tylenol and aspirin. Continue her home medicines. Continue physical therapy, weightbearing as tolerated, AIDEN stockings. Follow up approximately 2 weeks postop or sooner if there are any concerns.
== END 2019-07-22 11:53 | disposition home health service (06) | DRG 470 ==
LOC: ASU 06:08 → 3E 10:52

== ENCOUNTER 2020-12-18 12:40 | Inpatient (IN) ==
--- NOTE | 2020-12-18 13:19 | XRay Report ---
SINGLE VIEW CHEST CLINICAL HISTORY: Dyspnea. FINDINGS: An AP, portable, upright chest radiograph is compared to study dated 06/25/2019. The examinat ion is degraded by portable technique and patient rotation. The heart is mildly enlarged noting ather osclerotic calcification of the thoracic aorta. There is prominence of the pulmonary vasculature. The re is bibasilar atelectasis. No large pleural effusion or pneumothorax is seen. The skeletal structur es are osteopenic. The bony thorax is grossly intact. IMPRESSION: Cardiomegaly with prominence of the pulmonary vasculature. Correlate clinically for evide nce of mild congestive failure. ACT 112: Negative or not required by law. Electronically signed by: Benny Chacko M.D. 12/18/2020 1:18 PM
[2020-12-18 13:21] LABS: Alanine Aminotransferase 23 U/L (12-78); Albumin Level 3.2 gm/dl (3.4-5.0); Aspartate Aminotransferase 30 U/L (15-37); BUN Creatinine Ratio 19.9 (10-20); Blood Urea Nitrogen 15 mg/dl (7-18); Carbon Dioxide 29 mmol/L (21-32); Chloride 97 mmol/L (98-107); Creatinine Clr Calc Pharmacy 65.7 ml/min; Est GFR (African American) 90.2; Est GFR (Non-African American) 77.8; Glucose 111 mg/dl (70-99); Magnesium 1.6 mg/dl (1.8-2.4); Potassium 3.2 mmol/L (3.5-5.1); Sodium 135 mmol/L (136-145)
[2020-12-18 13:34] LABS: Albumin Globulin Ratio 0.8 (0.9-2); Alkaline Phosphatase 61 U/L (45-117); Bilirubin,Total 0.6 mg/dl (0.2-1); Globulin 3.9 gm/dl (2.5-4.0); Total Protein 7.1 gm/dl (6.4-8.2); Troponin I < 0.015 ng/ml (0-0.045)
[2020-12-18 13:36] LABS: Basophils # (auto) 0.01 K/uL (0-0.2); Basophils % (auto) 0.2 %; Hematocrit (blood only) 37.3 % (37-47); Hemoglobin 12.5 g/dL (12.0-16.0); Lymphocytes % (auto) 8.5 %; Mean Corpuscular Hemoglobin 29.9 pg (25-34); Mean Corpuscular Hgb Conc 33.5 g/dL (32-36); Mean Corpuscular Volume 89.2 fL (80-100); Mean Platelet Volume 9.1 fL (7.4-10.4); Monocytes # (auto) 0.55 K/uL (0.11-0.59); Monocytes % (auto) 11.7 %; Neutrophils # (auto) 3.74 K/uL (1.4-6.5); Neutrophils % (auto) 79.6 %; Platelet Count 211 K/uL (130-400); RDW Standard Deviation 48.7 fL (36.4-46.3); Red Blood Count 4.18 M/uL (4.2-5.4)
[2020-12-18] MEDS ORDERED: DEXAMETHASONE SOD INJ 10 MG/ML VIAL IV ONE (13:41)
[2020-12-18] MEDS ORDERED: ALBUT/IPRATROP 3MG/0.5MG NEB 3 ML VIAL NEB STA (13:42)
--- NOTE | 2020-12-18 13:44 | Electrocardiogram Report ---
Test Reason : Blood Pressure : / mmHG Vent. Rate : 085 BPM Atrial Rate : 085 BPM P-R Int : 188 ms QRS Dur : 096 ms QT Int : 388 ms P-R-T Axes : 059 -17 019 degrees QTc Int : 461 ms Normal sinus rhythm Nonspecific ST abnormality Abnormal ECG When compared with ECG of 25-JUN-2019 14:51, No significant change was found Confirmed by Savage Easley ([id number]) on 12/18/2020 1:43:43 PM Referred By: Confirmed By:Savage Easley
[2020-12-18 13:56] LABS: INR 1.2 (0.9-1.1); Partial Thromboplastin Ratio 1.1; Partial Thromboplastin Time 30.5 Seconds (21.0-31.0); Prothrombin Time 12.6 Seconds (9.0-12.0)
[2020-12-18] MEDS ORDERED: MAGNESIUM SULFATE / D5W 1 GM/100 ML BAG IV ONE ×2 (14:00→19:00)
[2020-12-18] MEDS: POTASSIUM CHLORIDE / WTR 10 MEQ/100 ML PLCT IV SCH ×2 (14:48→15:48)
--- NOTE | 2020-12-18 14:54 | History & Physical Report ---
Date of Service December 18, 2020 Assessment & Plan (1) Pneumonia due to 2019-nCoV: Acute respiratory failure with hypoxia COVID 19 pneumonia Acute Asthma Exacerbation COVID Screen: Positive On 12/18/20 CXR: Cardiomegaly with prominence of the pulmonary vasculature. Correlate clinically for evidence of mild congestive failure. Procalcitonin:Pending Troponin negative CRP:Pending Ferritin:Pending D-Dimer:pending Blood Cultures obtained Start on Remdesivir, Dexamethasone as per Protocol Empirically start on doxycycline 100 mg twice daily May not benefit from coalescent plasma given onset of symptoms 4 to 5 weeks ago Isolation precautions--Airborne/Contact Consult Pulmonology/ID if needed Encourage frequent Proning Lasix as needed Albuterol/Nebs PRN Continue Supplemental Oxygen as needed DVT prophylaxis: Lovenox Monitor LFTs, renal function while on Remdesivir Given congestive change on x-ray, will give 1 dose of IV Lasix 40mg Continue home inhalers Hypokalemia Hypomagnesemia Secondary to GI losses Replace electrolytes as needed Monitor DM Type II: well controlled Not on any meds at home Last A1c:6.6 on 09/11/20 ISS, basal Insulin, Accu checks, Diabetic diet Pharmacy Glycemic control consult Pharmacy to manage Insulin Update HbA1C Morbid obesity BMI:40 B/L Invasive ductal carcinoma S/P partial mastectomy S/P radiation therapy in April [address] Hakeem Lebron oncology as outpatient Okay to hold anastrozole as per oncology Mood disorder Continue escitalopram Dyslipidemia On Statin Obstructive sleep apnea on CPAP HTN Continue home meds DVT Px: Lovenox SQ Code Status Full Code as per my discussion with the patient Disposition PT/OT prior to discharge History of Present Illness Chief Complaint: Cough, shortness of breath Primary Care Provider: Chacha Cade MD Patient is a 80-year-old female with history of morbid obesity, diabetes mellitus type 2, breast cancer, GERD, mood disorder, dyslipidemia, degenerative disc disease, asthma, skin cancer, obstructive sleep apnea on CPAP and other medical problems presents with history of worsening cough, shortness of breath, wheezing since 4 to 5 weeks duration. Patient reports cough with yellowish expectoration since last few weeks and has been gradually worsening associated with shortness of breath and low-grade fever since last 2 to 3 days duration. Patient has been using her home inhalers more frequently to help with wheezing and shortness of breath. She states having worsening shortness of breath with exertion. Also noted to have nausea associated with vomiting and diarrhea today. Reports dizziness especially while standing and with ambulation. Has been on anastrozole for breast cancer and has been lately intolerant secondary to hot flashes. Reports not using CPAP since last 4 to 5 weeks secondary to treatment for skin cancer on October 30. Denies any history of chest pain, palpitations, pedal edema, hemoptysis, fall, head trauma, LOC, headache, change in vision, double/blurry vision, vertigo, bowel/bladder incontinence, abdominal pain, blood in stools, change in appetite, hematuria, dysuria, recent travel, sick contact with COVID, recent change in medications. Allergies Allergy/AdvReac Type Severity Reaction Status Date / Time tetanus toxoid, adsorbed Allergy Unknown SEVERE Verified 08/31/20 13:55 LOCAL EDEMA metformin AdvReac Unknown FLU LIKE Verified 08/31/20 13:55 SYMPTOMS Home Medications Medication Instructions Recorded Confirmed Type atenolol 25 mg tablet 25 mg PO QAM 08/18/18 12/18/20 History atorvastatin 20 mg tablet 20 mg PO HS 08/18/18 12/18/20 History fluticasone propionate 50 1 sprays INTNAS DAILY PRN 08/18/18 12/18/20 History mcg/actuation nasal spray,suspension hydrochlorothiazide 25 mg tablet 25 mg PO QAM 08/18/18 12/18/20 History losartan 25 mg tablet 25 mg PO QAM 08/18/18 12/18/20 History montelukast 10 mg tablet 10 mg PO DAILY tab 08/18/18 12/18/20 History albuterol sulfate [Ventolin HFA] 2 puff INHALATION QID PRN 06/18/19 12/18/20 History acetaminophen 650 mg 650 mg PO PRN PRN tab 03/16/20 12/18/20 History tablet,extended release benzonatate 100 mg capsule 100 mg PO TID PRN 03/16/20 12/18/20 History fluticasone 250 mcg-salmeterol 50 1 puffs INH BID 03/16/20 12/18/20 History mcg/dose blistr powdr for inhalation ibuprofen 600 mg tablet 200 mg PO Q4H PRN tab 03/16/20 12/18/20 History omeprazole 40 mg capsule,delayed 40 mg PO DAILY 03/16/20 12/18/20 History release fluocinonide 0.05 % topical cream 1 applic TOP QID PRN #60 gm 05/01/20 12/18/20 Rx gabapentin 300 mg capsule 300 mg PO BID cap 07/31/20 12/18/20 History anastrozole 1 mg tablet 1 mg PO DAILY 08/31/20 12/18/20 History azelastine 2 spray INTRANASAL BID 12/18/20 12/18/20 History bumetanide [Bumex] 1 mg PO UD PRN 12/18/20 12/18/20 History cholecalciferol (vitamin D3) 1,000 unit PO DAILY 12/18/20 12/18/20 History [Vitamin D3] escitalopram oxalate 20 mg PO DAILY 12/18/20 12/18/20 History polysorbate 80-glycerin [Refresh 1 drp OPHTHALMIC (EYE) QID PRN 12/18/20 12/18/20 History Dry Eye Therapy] Past Med/Surg History Medical History Asthma stable Basal cell carcinoma (BCC) of left forearm Bilateral malignant neoplasm of breast in female (03/21/20) Calcific tendinitis, left lower leg Cervical radiculopathy Cervical stenosis of spine Depression Encounter for pre-operative examination GERD (gastroesophageal reflux disease) controlled Hiatal hernia History of prediabetes diet controlled Hyperlipidemia Hypertension Influenza A Liver cyst Neuropathy Nodular thyroid disease Nodule of lower lobe of left lung Osteoarthritis Ovarian cyst Rosacea Sleep apnea Surgical History History of bladder repair surgery History of carpal tunnel release Right History of cataract surgery R/L History of colonoscopy History of eyelid surgery B/L UPPER EYELIDS History of total knee arthroplasty Left and right S/P tonsillectomy and adenoidectomy Status post bilateral knee replacements Family History Family/Other Family history of diabetes mellitus Mother , age 86 heart disease No problems noted. Father , age 95 CVA No problems noted. Son No problems noted. Son No problems noted. 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 Feels Safe at Home: Yes Childhood Exposure to Second-Hand Smoke: No caffeine: Yes (2 cups per day diet cola once a week) during the past year weight has: other Dental Care, Regularly: Yes Physical Activity Frequency: Does not Exercise Seatbelt Use: always Sunscreen Use: Yes Assistive Devices: Walker Review of Systems Review of Systems: All systems reviewed & are unremarkable except as noted in HPI & below Physical Exam Physical Exam: Physical Exam: Vitals signs as noted above General Appearance:Morbid obesity, no apparent distress Head: normocephalic, Atraumatic Eyes: normal inspection, EOMI Neck: supple, Trachea midline Respiratory/Chest: Decreased breath sounds, B/L wheezes, minimal basal crackles Cardiovascular: S1, S2, No murmur Abdomen/GI:Soft, Non tender, Bowel sounds present Extremities/Musculoskelatal:normal inspection, Trace pedal edema Neurologic/Psych:AAOX3, grossly no focal neurological deficits Skin: normal color, warm Results & Data Results & Data ([facility]) Vital Signs (Past 12 Hours) Vital Signs Temp Pulse Resp Resp BP Pulse Ox Pulse Ox 12/18/20 14:25 26 H 87 L 12/18/20 12:59 96 12/18/20 12:55 37.7 C H 84 22 146/56 H 98 Laboratory Results Short CBC 12/18/20 12/18/20 Range/Units 12:45 13:26 WBC Cancelled 4.70 L Hgb Cancelled 12.5 Hct Cancelled 37.3 Plt Count Cancelled 211 BMP 12/18/20 12/18/20 12:45 13:26 Sodium 135 L Cancelled Potassium 3.2 L Cancelled Chloride 97 L Cancelled Carbon Dioxide 29 Cancelled BUN 15 Cancelled Creatinine 0.73 Cancelled Glucose 111 H Cancelled Calcium 9.0 Cancelled Cardiac Enzymes 12/18/20 12/18/20 Range/Units 12:45 13:26 Troponin I < 0.015 Cancelled (0-0.045) ng/ml Liver Function 12/18/20 12/18/20 Range/Units 12:45 13:26 Total Bilirubin 0.6 Cancelled (0.2-1) mg/dl AST 30 Cancelled (15-37) U/L ALT 23 Cancelled (12-78) U/L Alkaline Phosphatase 61 Cancelled (45-117) U/L Albumin 3.2 L Cancelled (3.4-5.0) gm/dl Diagnostic Findings CXR:Cardiomegaly with prominence of the pulmonary vasculature. Correlate clinically for evidence of mild congestive failure. ECG Additional Comments: EKG: Normal sinus rhythm. Nonspecific ST abnormality. QTc 461.
--- NOTE | 2020-12-18 15:44 | Emergency Department Note ---
Impression & Plan Pneumonia due to 2019-nCoV, Hypoxia, Hypomagnesemia ED Provider Note NAME: DUSTIN HEIN AGE: 80 SEX: F ARRIVES VIA: Ambulance INFORMANT: Patient ED PROVIDER(S): Anay Cruz MD CHIEF COMPLAINT: SOB PLAN: Disposition: Inpatient Condition:Fair Referral: Hospitalist MEDICAL DECISION MAKING: This pt was evaluated and appeared to be in some respiratory discomfort. IV access was obtained and lab work was drawn. Pt was noted to be hypoxic on RA. She was stable on n/c O2. CXR is concerning for mild congestive changes. Pt was medicated with IV dexamethasone as well as a duoneb tx. Magnesium and potassium IV repletion was ordered. EKG reveals no acute changes. Pt was stable on n/c O2 and has tested positive for COVID. Case was d/w the hospitalist service for further management. Triage Nursing notes reviewed. Prior medical records reviewed Vital Signs: reviewed and remarkable for hypoxia on RA Differential diagnosis: Reactive airway disease, pneumonia, pneumothorax, COPD, CHF, infections, cardiac ischemia, pulmonary embolism, musculoskeletal, gastrointestinal, as well as other pathologies. ER treatment provided: IV dexamethasone duoneb IV potassium IV magnesium Diagnostics interpreted by me: ECG: NSR at 85, no PVC, no PAC, no acute ST changes, normal QTc. Cardiac Monitoring: an order for cardiac monitoring was placed and pt is noted to be in a NSR at 81 bpm. Laboratory studies: see below Imaging studies: SINGLE VIEW CHEST CLINICAL HISTORY: Dyspnea. FINDINGS: An AP, portable, upright chest radiograph is compared to study dated 06/25/2019. The examination is degraded by portable technique and patient rotation. The heart is mildly enlarged noting atherosclerotic calcification of the thoracic aorta. There is prominence of the pulmonary vasculature. There is bibasilar atelectasis. No large pleural effusion or pneumothorax is seen. The skeletal structures are osteopenic. The bony thorax is grossly intact. IMPRESSION: Cardiomegaly with prominence of the pulmonary vasculature. Correlate clinically for evidence of mild congestive failure. ACT 112: Negative or not required by law. Electronically signed by: Benny Chacko M.D. 12/18/2020 1:18 PM Dictated: 12/18/20 1315Transcribed: 12/18/201314 Consultation(s): hospitalist HPI: 80/F arrives for evaluation of SOB, chills and sweats. Pt states she has had increasing SOB since yesterday with chills and body aches. She admits to an occasional dry cough. No vomiting or diarrhea. has had similar sympt oms. Pt was tested for COVID yesterday but results are pending. She denies CP or pain with deep breathing. ROS: See above HPI for pertinent positives & negatives. A total of 10 systems reviewed and were otherwise negative. PAST MEDICAL HISTORY:See Below PAST SURGICAL HISTORY:See Below FAMILY HISTORY:See Below SOCIAL HISTORY:See Below HOME MEDICATIONS:See Below ALLERGIES:See Below VITALS:See Below PHYSICAL EXAMINATION: Vital signs reviewed. General: somewhat ill appearing 80 yo female, in no significant distress. HEENT: No scleral icterus, PERRLA, neck supple. Atraumatic. Cardiovascular: Regular rate and rhythm, no extra sounds. Pulmonary: Coarse breath sounds bilaterally, normal work of breathing on n/c O2. Dry cough with deep breath Abdomen: Soft, obese, nontender, nondistended, positive bowel sounds. Musculoskeletal: Atraumatic, no peripheral edema. Neurologic: Patient awake alert and oriented x 3 Skin: Warm, dry, no rash Anay Cruz MD Past Med/Surg History Medical History Asthma stable Basal cell carcinoma (BCC) of left forearm Bilateral malignant neoplasm of breast in female (03/21/20) Calcific tendinitis, left lower leg Cervical radiculopathy Cervical stenosis of spine Depression Encounter for pre-operative examination GERD (gastroesophageal reflux disease) controlled Hiatal hernia History of prediabetes diet controlled Hyperlipidemia Hypertension Influenza A Liver cyst Neuropathy Nodular thyroid disease Nodule of lower lobe of left lung Osteoarthritis Ovarian cyst Rosacea Sleep apnea Surgical History History of bladder repair surgery History of carpal tunnel release Right History of cataract surgery R/L History of colonoscopy History of eyelid surgery B/L UPPER EYELIDS History of total knee arthroplasty Left and right S/P tonsillectomy and adenoidectomy Status post bilateral knee replacements Family History Family/Other Family history of diabetes mellitus Mother , age 86 heart disease No problems noted. Father , age 95 CVA No problems noted. Son No problems noted. Son No problems noted. Social History Smoking Status: Former smoker Age Started Using Tobacco: 16; Age Quit Using Tobacco: 31; packs per day: 0.5; Years Smoked: 15; Number of Years Since Quit: 48; Second Hand Exposure: No; Do You Dip or Chew Tobacco: No; Hx Alcohol Use: Yes Alcohol type: beer and wine Alcohol type Comment: occ Hx Substance Use: No Preferred Language: Italian Communication Ability: Effective Visual Impairment: Diminished Hearing Ability: Normal Medical Data Entry Clerk Required: No Beliefs That Will Affect Care: None marital status: Current Living Situation: Spouse current occupational status: retired 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 Other Information That Helps Us Care for You: No Feels Safe at Home: Yes Safety Concerns: Feels Safe At This Time Childhood Exposure to Second-Hand Smoke: No caffeine: Yes (2 cups per day diet cola once a week) during the past year weight has: other Dental Care, Regularly: Yes Physical Activity Frequency: Does not Exercise Seatbelt Use: always Sunscreen Use: Yes Assistive Devices: Oxygen - Continuous Allergies Allergies Allergy/AdvReac Type Severity Reaction Status Date / Time tetanus toxoid, adsorbed Allergy Unknown SEVERE Verified 08/31/20 13:55 LOCAL EDEMA metformin AdvReac Unknown FLU LIKE Verified 08/31/20 13:55 SYMPTOMS Home Meds Home Medications Medication Instructions Recorded Confirmed atenolol 25 mg tablet 25 mg PO QAM 08/18/18 12/18/20 atorvastatin 20 mg tablet 20 mg PO HS 08/18/18 12/18/20 fluticasone propionate 50 1 sprays INTNAS DAILY PRN 08/18/18 12/18/20 mcg/actuation nasal spray,suspension hydrochlorothiazide 25 mg tablet 25 mg PO QAM 08/18/18 12/18/20 losartan 25 mg tablet 25 mg PO QAM 08/18/18 12/18/20 montelukast 10 mg tablet 10 mg PO DAILY tab 08/18/18 12/18/20 albuterol sulfate [Ventolin HFA] 2 puff INHALATION QID PRN 06/18/19 12/18/20 acetaminophen 650 mg 650 mg PO PRN PRN tab 03/16/20 12/18/20 tablet,extended release benzonatate 100 mg capsule 100 mg PO TID PRN 03/16/20 12/18/20 fluticasone 250 mcg-salmeterol 50 1 puffs INH BID 03/16/20 12/18/20 mcg/dose blistr powdr for inhalation ibuprofen 600 mg tablet 200 mg PO Q4H PRN tab 03/16/20 12/18/20 omeprazole 40 mg capsule,delayed 40 mg PO DAILY 03/16/20 12/18/20 release gabapentin 300 mg capsule 300 mg PO TID cap 07/31/20 12/19/20 anastrozole 1 mg tablet 1 mg PO DAILY 08/31/20 12/18/20 azelastine 2 spray INTRANASAL BID 12/18/20 12/18/20 bumetanide [Bumex] 1 mg PO UD PRN 12/18/20 12/18/20 cholecalciferol (vitamin D3) 1,000 unit PO DAILY 12/18/20 12/18/20 [Vitamin D3] escitalopram oxalate 20 mg PO DAILY 12/18/20 12/18/20 polysorbate 80-glycerin [Refresh 1 drp OPHTHALMIC (EYE) QID PRN 12/18/20 12/18/20 Dry Eye Therapy] Previous Rx's Medication Instructions Recorded fluocinonide 0.05 % topical cream 1 applic TOP QID PRN #60 gm 05/01/20 Results & Data (ED) Vital Signs Vital Signs - 24 hr 12/18/20 12:52 12/18/20 12:55 12/18/20 12:57 Temperature 37.7 C H Temperature Source Oral Pulse Rate 84 81 Pulse Rate [Right Finger] Pulse Rate from SpO2 Sensor 81 Respiratory Rate 22 20 Respiratory Rate [Exercises] Respiratory Effort / Characteristics Spontaneous Spontaneous Blood Pressure 146/56 H 146/56 H Blood Pressure Mean 86 86 Pulse Oximetry 98 98 Pulse Oximetry [Exercises] Oxygen Delivery Method Nasal Cannula Nasal Cannula Oxygen Flow Rate 2 2 Sepsis Recent Fever Within 48 Hours Yes Sepsis New/Unexplained Change in Mental Status N/A Sepsis Action Taken by Nursing No Action Required 12/18/20 12:59 12/18/20 13:00 12/18/20 13:30 Temperature Temperature Source Pulse Rate 82 83 Pulse Rate [Right Finger] Pulse Rate from SpO2 Sensor 82 83 Respiratory Rate 22 24 Respiratory Rate [Exercises] Respiratory Effort / Characteristics Blood Pressure Blood Pressure Mean Pulse Oximetry 96 98 93 Pulse Oximetry [Exercises] Oxygen Delivery Method Nasal Cannula Nasal Cannula Nasal Cannula Oxygen Flow Rate 2 2 2 Sepsis Recent Fever Within 48 Hours Sepsis New/Unexplained Change in Mental Status Sepsis Action Taken by Nursing 12/18/20 14:00 12/18/20 14:25 12/18/20 14:52 Temperature Temperature Source Pulse Rate 81 82 Pulse Rate [Right Finger] Pulse Rate from SpO2 Sensor 81 Respiratory Rate 22 24 Respiratory Rate [Exercises] 26 H Respiratory Effort / Characteristics Blood Pressure 139/61 Blood Pressure Mean 87 Pulse Oximetry 95 Pulse Oximetry [Exercises] 87 L Oxygen Delivery Method Nasal Cannula Room Air Oxygen Flow Rate 2 Sepsis Recent Fever Within 48 Hours Sepsis New/Unexplained Change in Mental Status Sepsis Action Taken by Nursing 12/18/20 15:00 12/18/20 15:01 12/18/20 15:09 Temperature Temperature Source Pulse Rate 81 80 Pulse Rate [Right Finger] 80 Pulse Rate from SpO2 Sensor 82 79 Respiratory Rate 18 22 18 Respiratory Rate [Exercises] Respiratory Effort / Characteristics Non-Labored Spontaneous Blood Pressure 143/61 H Blood Pressure Mean 88 Pulse Oximetry 95 95 93 Pulse Oximetry [Exercises] Oxygen Delivery Method Nasal Cannula Nasal Cannula Nasal Cannula Oxygen Flow Rate 2 2 2 Sepsis Recent Fever Within 48 Hours Sepsis New/Unexplained Change in Mental Status Sepsis Action Taken by Nursing Laboratory Data Result diagrams: 12/20/20 05:43 12/20/20 05:43 Lab Results 12/18/20 12/18/20 12/18/20 Range/Units 12:45 12:45 12:45 WBC Cancelled RBC Cancelled Hgb Cancelled Hct Cancelled MCV Cancelled MCH Cancelled MCHC Cancelled RDW Std Deviation Cancelled RDW Coeff of Timothy Cancelled Plt Count Cancelled MPV Cancelled Immature Gran % (Auto) Cancelled Neut % (Auto) Cancelled Lymph % (Auto) Cancelled Lucas % (Auto) Cancelled Eos % (Auto) Cancelled Baso % (Auto) Cancelled Neut # (Auto) Cancelled Lymph # (Auto) Cancelled Lucas # (Auto) Cancelled Eos # (Auto) Cancelled Baso # (Auto) Cancelled Immature Gran # (Auto) Cancelled Absolute Nucleated RBC Cancelled Nucleated RBC % (auto) Cancelled Neutrophils % (Manual) Cancelled Band Neutrophils % Cancelled Lymphocytes % (Manual) Cancelled Prolymphocyte % Cancelled Reactive Lymphs % (Man) Cancelled Monocytes % (Manual) Cancelled Eosinophils % (Manual) Cancelled Basophils % (Manual) Cancelled Metamyelocytes % (Man) Cancelled Myelocytes % (Man) Cancelled Promyelocytes % (Man) Cancelled Blast Cells % (Manual) Cancelled Plasma Cell % (Manual) Cancelled Other Cells % Cancelled Nucleated RBC % Cancelled Neutrophils # (Manual) Cancelled Band Neutrophils # Cancelled Total Absolute Neuts Cancelled Lymphocytes # (Manual) Cancelled Prolymphocyte # Cancelled Reactive Lymphs # Cancelled Total Abs Lymphocytes Cancelled Monocytes # (Manual) Cancelled Eosinophils # (Manual) Cancelled Basophils # (Manual) Cancelled Metamyelocytes # (Man) Cancelled Myelocytes # (Manual) Cancelled Promyelocytes # (Man) Cancelled Blast Cells # (Man) Cancelled Plasma Cell # (Manual) Cancelled Other Cells # Cancelled Nucleated RBCs # (Man) Cancelled Hypersegmented Neuts Cancelled Hyposegmented Neuts Cancelled Hypogranular Neuts Cancelled Large Granular Lymphs Cancelled # Lrg Granular Lymphs Cancelled Hairy Cells Cancelled Smudge Cells Cancelled Toxic Granulation Cancelled Toxic Vacuolation Cancelled Dohle Bodies Cancelled Lucia Rods Cancelled Platelet Estimate Cancelled Hypogranular Platelets Cancelled Clumped Platelets Cancelled Giant Platelets Cancelled Platelet Satelliting Cancelled RBC Morphology Cancelled Polychromasia Cancelled Hypochromasia Cancelled Poikilocytosis Cancelled Basophilic Stippling Cancelled Anisocytosis Cancelled Microcytosis Cancelled Macrocytosis Cancelled Spherocytes Cancelled Pappenheimer Bodies Cancelled Sickle Cells Cancelled Target Cells Cancelled Tear Drop Cells Cancelled Ovalocytes Cancelled Stomatocytes Cancelled Philip-Sebeka Bodies Cancelled Echinocytes Cancelled Acanthocytes (Spur) Cancelled Rouleaux Cancelled RBC Agglutinates Cancelled Schistocytes Cancelled RBC Morph Comment Cancelled Sezary Cell Cancelled PT Cancelled INR Cancelled APTT Cancelled PTT Ratio Cancelled D-Dimer (0-500) ug/L FEU Sodium 135 L (136-145) mmol/L Potassium 3.2 L (3.5-5.1) mmol/L Chloride 97 L (98-107) mmol/L Carbon Dioxide 29 (21-32) mmol/L Anion Gap 8.0 (3-11) BUN 15 (7-18) mg/dl Creatinine 0.73 (0.6-1.2) mg/dl Est Cr Clr Drug Dosing 65.7 ml/min Est GFR ( Amer) 90.2 Est GFR (Non-Af Amer) 77.8 BUN/Creatinine Ratio 19.9 (10-20) Glucose 111 H (70-99) mg/dl Calcium 9.0 (8.5-10.1) mg/dl Magnesium 1.6 L (1.8-2.4) mg/dl Total Bilirubin 0.6 (0.2-1) mg/dl AST 30 (15-37) U/L ALT 23 (12-78) U/L Alkaline Phosphatase 61 (45-117) U/L Troponin I < 0.015 (0-0.045) ng/ml Total Protein 7.1 (6.4-8.2) gm/dl Albumin 3.2 L (3.4-5.0) gm/dl Globulin 3.9 (2.5-4.0) gm/dl Albumin/Globulin Ratio 0.8 L (0.9-2) Specimen Hemolysis COVID-19 Eval Order SARS-CoV-2, RNA, NAAT (NEGATIVE) 12/18/20 12/18/20 12/18/20 Range/Units 13:26 13:26 13:26 WBC 4.70 L RBC 4.18 L Hgb 12.5 Hct 37.3 MCV 89.2 MCH 29.9 MCHC 33.5 RDW Std Deviation 48.7 H RDW Coeff of Timothy 15.0 H Plt Count 211 MPV 9.1 Immature Gran % (Auto) 0.0 Neut % (Auto) 79.6 Lymph % (Auto) 8.5 Lucas % (Auto) 11.7 Eos % (Auto) 0.0 Baso % (Auto) 0.2 Neut # (Auto) 3.74 Lymph # (Auto) 0.40 L Lucas # (Auto) 0.55 Eos # (Auto) 0.00 Baso # (Auto) 0.01 Immature Gran # (Auto) 0.00 Absolute Nucleated RBC Nucleated RBC % (auto) Neutrophils % (Manual) Band Neutrophils % Lymphocytes % (Manual) Prolymphocyte % Reactive Lymphs % (Man) Monocytes % (Manual) Eosinophils % (Manual) Basophils % (Manual) Metamyelocytes % (Man) Myelocytes % (Man) Promyelocytes % (Man) Blast Cells % (Manual) Plasma Cell % (Manual) Other Cells % Nucleated RBC % Neutrophils # (Manual) Band Neutrophils # Total Absolute Neuts Lymphocytes # (Manual) Prolymphocyte # Reactive Lymphs # Total Abs Lymphocytes Monocytes # (Manual) Eosinophils # (Manual) Basophils # (Manual) Metamyelocytes # (Man) Myelocytes # (Manual) Promyelocytes # (Man) Blast Cells # (Man) Plasma Cell # (Manual) Other Cells # Nucleated RBCs # (Man) Hypersegmented Neuts Hyposegmented Neuts Hypogranular Neuts Large Granular Lymphs # Lrg Granular Lymphs Hairy Cells Smudge Cells Toxic Granulation Toxic Vacuolation Dohle Bodies Lucia Rods Platelet Estimate Hypogranular Platelets Clumped Platelets Giant Platelets Platelet Satelliting RBC Morphology Polychromasia Hypochromasia Poikilocytosis Basophilic Stippling Anisocytosis Microcytosis Macrocytosis Spherocytes Pappenheimer Bodies Sickle Cells Target Cells Tear Drop Cells Ovalocytes Stomatocytes Philip-Sebeka Bodies Echinocytes Acanthocytes (Spur) Rouleaux RBC Agglutinates Schistocytes RBC Morph Comment Sezary Cell PT 12.6 H INR 1.2 H APTT 30.5 PTT Ratio 1.1 D-Dimer (0-500) ug/L FEU Sodium Cancelled (136-145) mmol/L Potassium Cancelled (3.5-5.1) mmol/L Chloride Cancelled (98-107) mmol/L Carbon Dioxide Cancelled (21-32) mmol/L Anion Gap Cancelled (3-11) BUN Cancelled (7-18) mg/dl Creatinine Cancelled (0.6-1.2) mg/dl Est Cr Clr Drug Dosing Cancelled ml/min Est GFR ( Amer) Cancelled Est GFR (Non-Af Amer) Cancelled BUN/Creatinine Ratio Cancelled (10-20) Glucose Cancelled (70-99) mg/dl Calcium Cancelled (8.5-10.1) mg/dl Magnesium Cancelled (1.8-2.4) mg/dl Total Bilirubin Cancelled (0.2-1) mg/dl AST Cancelled (15-37) U/L ALT Cancelled (12-78) U/L Alkaline Phosphatase Cancelled (45-117) U/L Troponin I Cancelled (0-0.045) ng/ml Total Protein Cancelled (6.4-8.2) gm/dl Albumin Cancelled (3.4-5.0) gm/dl Globulin Cancelled (2.5-4.0) gm/dl Albumin/Globulin Ratio Cancelled (0.9-2) Specimen Hemolysis COVID-19 Eval Order SARS-CoV-2, RNA, NAAT (NEGATIVE) 12/18/20 12/18/20 12/18/20 Range/Units 13:26 14:45 14:45 WBC RBC Hgb Hct MCV MCH MCHC RDW Std Deviation RDW Coeff of Timothy Plt Count MPV Immature Gran % (Auto) Neut % (Auto) Lymph % (Auto) Lucas % (Auto) Eos % (Auto) Baso % (Auto) Neut # (Auto) Lymph # (Auto) Lucas # (Auto) Eos # (Auto) Baso # (Auto) Immature Gran # (Auto) Absolute Nucleated RBC Nucleated RBC % (auto) Neutrophils % (Manual) Band Neutrophils % Lymphocytes % (Manual) Prolymphocyte % Reactive Lymphs % (Man) Monocytes % (Manual) Eosinophils % (Manual) Basophils % (Manual) Metamyelocytes % (Man) Myelocytes % (Man) Promyelocytes % (Man) Blast Cells % (Manual) Plasma Cell % (Manual) Other Cells % Nucleated RBC % Neutrophils # (Manual) Band Neutrophils # Total Absolute Neuts Lymphocytes # (Manual) Prolymphocyte # Reactive Lymphs # Total Abs Lymphocytes Monocytes # (Manual) Eosinophils # (Manual) Basophils # (Manual) Metamyelocytes # (Man) Myelocytes # (Manual) Promyelocytes # (Man) Blast Cells # (Man) Plasma Cell # (Manual) Other Cells # Nucleated RBCs # (Man) Hypersegmented Neuts Hyposegmented Neuts Hypogranular Neuts Large Granular Lymphs # Lrg Granular Lymphs Hairy Cells Smudge Cells Toxic Granulation Toxic Vacuolation Dohle Bodies Lucia Rods Platelet Estimate Hypogranular Platelets Clumped Platelets Giant Platelets Platelet Satelliting RBC Morphology Polychromasia Hypochromasia Poikilocytosis Basophilic Stippling Anisocytosis Microcytosis Macrocytosis Spherocytes Pappenheimer Bodies Sickle Cells Target Cells Tear Drop Cells Ovalocytes Stomatocytes Philip-Sebeka Bodies Echinocytes Acanthocytes (Spur) Rouleaux RBC Agglutinates Schistocytes RBC Morph Comment Sezary Cell PT INR APTT PTT Ratio D-Dimer 490 (0-500) ug/L FEU Sodium (136-145) mmol/L Potassium (3.5-5.1) mmol/L Chloride (98-107) mmol/L Carbon Dioxide (21-32) mmol/L Anion Gap (3-11) BUN (7-18) mg/dl Creatinine (0.6-1.2) mg/dl Est Cr Clr Drug Dosing ml/min Est GFR ( Amer) Est GFR (Non-Af Amer) BUN/Creatinine Ratio (10-20) Glucose (70-99) mg/dl Calcium (8.5-10.1) mg/dl Magnesium (1.8-2.4) mg/dl Total Bilirubin (0.2-1) mg/dl AST (15-37) U/L ALT (12-78) U/L Alkaline Phosphatase (45-117) U/L Troponin I (0-0.045) ng/ml Total Protein (6.4-8.2) gm/dl Albumin (3.4-5.0) gm/dl Globulin (2.5-4.0) gm/dl Albumin/Globulin Ratio (0.9-2) Specimen Hemolysis COVID-19 Eval Order Covid19 [facility] SARS-CoV-2, RNA, NAAT POSITIVE A* (NEGATIVE) Administered Medications Acetaminophen (Acetaminophen 325 Mg Tab) 650 mg PO Q4H PRN PRN Reason: Pain Stop: 01/17/21 18:27 Last Admin: 12/20/20 08:16 Dose: 650 mg Documented by: [id number] Atenolol (Atenolol 25 Mg Tablet) [address] [facility] Stop: 01/17/21 19:59 Last Admin: 12/20/20 09:07 Dose: 25 mg Documented by: [id number] Admin: 12/19/20 08:17 Dose: 25 mg Documented by: [id number] Admin: 12/18/20 20:12 Dose: 25 mg Documented by: [id number] Atorvastatin Calcium (Atorvastatin 20 Mg Tab) 20 mg PO [facility] Stop: 01/17/21 20:59 Last Admin: 12/19/20 20:07 Dose: 20 mg Documented by: [id number] Admin: 12/18/20 20:12 Dose: 20 mg Documented by: [id number] Benzonatate (Benzonatate 100 Mg Capsule) 100 mg PO TID PRN PRN Reason: Cough Stop: 01/17/21 18:16 Last Admin: 12/20/20 12:14 Dose: 100 mg Documented by: [id number] Admin: 12/19/20 23:32 Dose: 100 mg Documented by: [id number] Doxycycline Hyclate (Doxycycline Hyclate 100 Mg Cap) 100 mg PO BID [facility] Stop: 12/25/20 18:59 Last Admin: 12/20/20 09:07 Dose: 100 mg Documented by: [id number] Admin: 12/19/20 20:06 Dose: 100 mg Documented by: [id number] Admin: 12/19/20 08:17 Dose: 100 mg Documented by: [id number] Admin: 12/18/20 20:13 Dose: 100 mg Documented by: [id number] Enoxaparin Sodium (Enoxaparin Inj 40 Mg/0.4 Ml Syr) 40 mg SQ Q12H [facility] Stop: 01/17/21 18:16 Last Admin: 12/20/20 09:09 Dose: 40 mg Documented by: [id number] Admin: 12/19/20 20:06 Dose: 40 mg Documented by: [id number] Admin: 12/19/20 08:15 Dose: 40 mg Documented by: [id number] Admin: 12/18/20 20:11 Dose: 40 mg Documented by: [id number] Escitalopram Oxalate (Escitalopram Oxalate 20 Mg Tab) 20 mg PO DAILY [facility] Stop: 01/18/21 08:59 Last Admin: 12/20/20 09:08 Dose: 20 mg Documented by: [id number] Admin: 12/19/20 08:18 Dose: 20 mg Documented by: [id number] Fluticasone/Vilanterol (Fluticasone/Vilanterol 200/25mcg 14 Puffs/Inhaler) 1 puffs INH DAILY [facility] Stop: 01/18/21 08:59 Last Admin: 12/20/20 09:09 Dose: 1 puffs Documented by: [id number] Admin: 12/19/20 08:14 Dose: 1 puffs Documented by: [id number] Gabapentin (Gabapentin 300 Mg Cap) 300 mg PO TID [facility] Stop: 01/18/21 13:59 Last Admin: 12/20/20 14:16 Dose: 300 mg Documented by: [id number] Admin: 12/20/20 09:07 Dose: 300 mg Documented by: [id number] Admin: 12/19/20 20:07 Dose: 300 mg Documented by: [id number] Admin: 12/19/20 13:13 Dose: 300 mg Documented by: [id number] Hydrochlorothiazide (Hydrochlorothiazide 25 Mg Tab) 25 mg PO QAM [facility] Stop: 01/18/21 08:59 Last Admin: 12/20/20 09:08 Dose: 25 mg Documented by: [id number] Admin: 12/19/20 08:17 Dose: 25 mg Documented by: [id number] Remdesivir 100 mg/ Sodium (Chloride) 250 mls @ 250 mls/hr IV Q24H [facility]; Protocol Stop: 12/22/20 20:59 Last Infusion: 12/19/20 21:00 Dose: 0 mls/hr Documented by: [id number] Admin: 12/19/20 19:57 Dose: 250 mls/hr Documented by: [id number] Dexamethasone 6 mg/ Syringe 1.5 mls @ 1 mls/min IV DAILY [facility] Stop: 12/28/20 09:02 Last Admin: 12/20/20 09:09 Dose: 1 mls/min Documented by: [id number] Admin: 12/19/20 08:18 Dose: 1 mls/min Documented by: [id number] Insulin Aspart (Insulin Aspart 100 Units/Ml 3 Ml Pen) 0 units SC ACHS [facility]; Protocol Stop: 01/17/21 18:59 Last Admin: 12/20/20 17:34 Dose: 7 units Documented by: [id number] Cosigned by: [id number] Admin: 12/20/20 12:14 Dose: 6 units Documented by: [id number] Cosigned by: [id number] Admin: 12/20/20 09:10 Dose: 2 units Documented by: [id number] Cosigned by: [id number] Admin: 12/19/20 20:22 Dose: 1 units Documented by: [id number] Cosigned by: [id number] Admin: 12/19/20 18:15 Dose: 6 units Documented by: [id number] Cosigned by: [id number] Admin: 12/19/20 12:46 Dose: 4 units Documented by: [id number] Cosigned by: [id number] Admin: 12/19/20 08:26 Dose: 8 units Documented by: [id number] Cosigned by: [id number] Admin: 12/18/20 21:06 Dose: Not Given Documented by: [id number] Cosigned by: [id number] Admin: 12/18/20 20:07 Dose: 5 units Documented by: [id number] Cosigned by: [id number] Losartan Potassium (Losartan Potassium 25 Mg Tab) 25 mg PO QAM [facility] Stop: 01/18/21 08:59 Last Admin: 12/20/20 09:07 Dose: 25 mg Documented by: [id number] Admin: 12/19/20 08:18 Dose: 25 mg Documented by: [id number] Miscellaneous (Azelastine- Order Awaiting Action) 1 ea N/A QS [facility] Stop: 01/18/21 00:00 Last Admin: 12/20/20 17:28 Dose: Not Given Documented by: [id number] Admin: 12/20/20 09:11 Dose: Not Given Documented by: [id number] Admin: 12/20/20 00:06 Dose: Not Given Documented by: [id number] Admin: 12/19/20 16:23 Dose: Not Given Documented by: [id number] Admin: 12/19/20 07:15 Dose: Not Given Documented by: [id number] Admin: 12/18/20 23:58 Dose: Not Given Documented by: [id number] Montelukast Sodium (Montelukast Sodium 10 Mg Tablet) 10 mg PO DAILY [facility] Stop: 01/17/21 18:59 Last Admin: 12/20/20 09:08 Dose: 10 mg Documented by: [id number] Admin: 12/19/20 08:17 Dose: 10 mg Documented by: [id number] Admin: 12/18/20 20:12 Dose: 10 mg Documented by: [id number] Pantoprazole Sodium (Pantoprazole 40 Mg Tab) 40 mg PO DAILY [facility] Stop: 01/17/21 18:59 Last Admin: 12/20/20 09:07 Dose: 40 mg Documented by: [id number] Admin: 12/19/20 08:16 Dose: 40 mg Documented by: [id number] Admin: 12/18/20 20:11 Dose: 40 mg Documented by: [id number] Sodium Chloride (Sodium Chloride 0.9% 10ml Flush) 30 ml IV Q24H [facility] Stop: 12/22/20 20:01 Last Admin: 12/19/20 20:07 Dose: 30 ml Documented by: [id number] Admin: 12/18/20 21:44 Dose: 30 ml Documented by: [id number] Vitamin D (Cholecalciferol 1,000 Units 25 Mcg Tab) 1,000 units PO DAILY [facility] Stop: 01/18/21 08:59 Last Admin: 12/20/20 09:08 Dose: 1,000 units Documented by: [id number] Admin: 12/19/20 08:16 Dose: 1,000 units Documented by: [id number] Discontinued Medications Albuterol (Albut/Ipratrop 3mg/0.5mg Neb 3 Ml Vial) 3 ml NEB NOW STA Stop: 12/18/20 13:43 Last Admin: 12/18/20 15:09 Dose: 3 ml Documented by: [id number] Albuterol (Albut/Ipratrop 3mg/0.5mg Neb 3 Ml Vial) 3 ml NEB QIDR NASIM Stop: 01/17/21 18:59 Last Admin: 12/20/20 07:36 Dose: 3 ml Documented by: [id number] Admin: 12/19/20 19:20 Dose: 3 ml Documented by: [id number] Admin: 12/19/20 15:13 Dose: 3 ml Documented by: [id number] Admin: 12/19/20 11:11 Dose: 3 ml Documented by: [id number] Admin: 12/19/20 07:09 Dose: 3 ml Documented by: [id number] Admin: 12/18/20 19:51 Dose: 3 ml Documented by: [id number] Dexamethasone (Dexamethasone Sod Inj 10 Mg/Ml Vial) 6 mg IV NOW ONE Stop: 12/18/20 13:42 Last Admin: 12/18/20 14:48 Dose: 6 mg Documented by: [id number] Furosemide (Furosemide 40 Mg/4 Ml Vial) 40 mg IV NOW STA Stop: 12/18/20 16:09 Last Admin: 12/18/20 17:02 Dose: 40 mg Documented by: [id number] Furosemide (Furosemide 40 Mg/4 Ml Vial) 20 mg IV ONE ONE Stop: 12/19/20 13:16 Last Admin: 12/19/20 13:13 Dose: 20 mg Documented by: [id number] Gabapentin (Gabapentin 300 Mg Cap) 300 mg PO BID NASIM Stop: 01/17/21 20:59 Last Admin: 12/19/20 08:16 Dose: 300 mg Documented by: [id number] Admin: 12/18/20 20:12 Dose: 300 mg Documented by: [id number] Magnesium Sulfate/Dextrose (Magnesium Sulfate / D5w) 1 gm in 100 mls @ 50 mls/hr IV ONE ONE Stop: 12/18/20 15:59 Last Infusion: 12/18/20 16:48 Dose: 0 mls/hr Documented by: [id number] Admin: 12/18/20 14:48 Dose: 50 mls/hr Documented by: [id number] Potassium Chloride (K Seferino / Wtr) 10 meq in 100 mls @ 100 mls/hr IV Q1H [facility] Stop: 12/18/20 15:59 Last Infusion: 12/18/20 16:48 Dose: 0 mls/hr Documented by: [id number] Admin: 12/18/20 15:48 Dose: 100 mls/hr Documented by: [id number] Infusion: 12/18/20 15:48 Dose: 0 mls/hr Documented by: [id number] Admin: 12/18/20 14:48 Dose: 100 mls/hr Documented by: [id number] Remdesivir 200 mg/ Sodium (Chloride) 250 mls @ 125 mls/hr IV NOW ONE; Protocol Stop: 12/18/20 21:59 Last Infusion: 12/18/20 23:43 Dose: 0 mls/hr Documented by: [id number] Admin: 12/18/20 21:43 Dose: 125 mls/hr Documented by: [id number] Magnesium Sulfate/Dextrose (Magnesium Sulfate / D5w) 1 gm in 100 mls @ 50 mls/hr IV ONE ONE Stop: 12/18/20 20:59 Last Infusion: 12/18/20 22:06 Dose: 0 mls/hr Documented by: [id number] Admin: 12/18/20 20:06 Dose: 50 mls/hr Documented by: [id number] Insulin Aspart (Insulin Aspart 100 Units/Ml 3 Ml Pen) 0 units SC 0000,0400 [facility] Stop: 12/19/20 04:01 Last Admin: 12/19/20 04:12 Dose: 1 units Documented by: [id number] Cosigned by: [id number] Admin: 12/18/20 23:58 Dose: 2 units Documented by: [id number] Cosigned by: [id number] Potassium Chloride (Potassium Chloride Crtab 20 Meq Tabcr) 40 meq PO ONE ONE Stop: 12/18/20 16:16 Last Admin: 12/18/20 17:02 Dose: 40 meq Documented by: [id number] Potassium Chloride (Potassium Chloride Crtab 20 Meq Tabcr) 40 meq PO NOW ONE Stop: 12/19/20 08:31 Last Admin: 12/19/20 08:32 Dose: 40 meq Documented by: [id number] Discharge Plan Visit Data Chief Complaint: Shortness of Breath/Dyspnea ED Provider: Anay Cruz Discharge Problem: Pneumonia due to 2019-nCoV, Hypoxia, Hypomagnesemia Patient Disposition: Admitted As Inpatient Discharge Instructions Interventions: ED Discharge Assessment Last Done: 12/18/20 17:46
[2020-12-18] MEDS ORDERED: FUROSEMIDE 40 MG/4 ML VIAL IV STA (16:08)
[2020-12-18] MEDS ORDERED: POTASSIUM CHLORIDE CRTAB 20 MEQ TABCR PO ONE (16:15)
[2020-12-18 16:20] LABS: D Dimer 490 ug/L FEU (0-500)
[2020-12-18 17:26] LABS: C Reactive Protein 3.1 mg/dl (0-0.29); Ferritin 258.9 ng/ml (8-388)
[2020-12-18] MEDS ORDERED: BUMETANIDE 1 MG TAB PO PRN (18:17)
[2020-12-18] MEDS ORDERED: FLUTICASONE PROPIONATE NA SPR 16 GM BTL PRN (18:17)
[2020-12-18] MEDS ORDERED: DEXTROSE 50% 50 ML SYRINGE IV PRN (18:17)
[2020-12-18] MEDS ORDERED: ONDANSETRON INJ 2 MG/ML 2 ML VIAL IV PRN (18:17)
[2020-12-18] MEDS ORDERED: POLYETHYLENE (MIRALAX) 17 GM PACK PO PRN (18:17)
[2020-12-18] MEDS ORDERED: GLUCOSE 10 TABS/TUBE PO PRN (18:17)
[2020-12-18] MEDS ORDERED: GLUCOSE 40% GEL 15 GM TUBE PO PRN (18:17)
[2020-12-18] MEDS ORDERED: ALBUTEROL HFA 8 GM INHALER INH PRN (18:17)
[2020-12-18] MEDS ORDERED: ARTIFICIAL TEARS OP PRN (18:17)
[2020-12-18] MEDS ORDERED: GLUCAGON FOR INJ 1 MG VIAL SQ PRN (18:17)
[2020-12-18] MEDS ORDERED: CARBOHYDRATES FOR HYPOGLYCEMIA PO PRN (18:17)
[2020-12-18] MEDS ORDERED: PHARMACY GLYCEMIC MGMT CONSULT PRN (18:27)
[2020-12-18] MEDS ORDERED: ACETAMINOPHEN 325 MG TAB PO PRN (18:28)
[2020-12-18] MEDS: ALBUT/IPRATROP 3MG/0.5MG NEB 3 ML VIAL NEB SCH (19:51)
[2020-12-18] MEDS ORDERED: REMDESIVIR 200 MG in SODIUM CHLORIDE 0.9% 210 ML IV ONE (20:00)
[2020-12-18] MEDS: INSULIN ASPART 100 UNITS/ML 3 ML PEN SC SCH ×3 (20:07→23:58)
[2020-12-18] MEDS: ENOXAPARIN INJ 40 MG/0.4 ML SYR SQ SCH (20:11)
[2020-12-18] MEDS: PANTOprazole 40 MG TAB PO SCH (20:11)
[2020-12-18] MEDS: ATENOLOL 25 MG TABLET PO SCH (20:12)
[2020-12-18] MEDS: ATORVASTATIN 20 MG TAB PO SCH (20:12)
[2020-12-18] MEDS: MONTELUKAST SODIUM 10 MG TABLET PO SCH (20:12)
[2020-12-18] MEDS: GABAPENTIN 300 MG CAP PO SCH (20:12)
[2020-12-18] MEDS: DOXYCYCLINE HYCLATE 100 MG CAP PO SCH (20:13)
[2020-12-18] MEDS ORDERED: INSULIN GLARGINE SOLOSTAR 100 UNITS/ML 3 ML PEN SC SCH (21:00)
[2020-12-18] MEDS: SODIUM CHLORIDE 0.9% 10ML FLUSH IV SCH (21:44)
[2020-12-19 00:25] LABS: Appearance Urine Clear (Clear); Bilirubin Urine Negative (Negative); Blood Urine Negative (Negative); Color Urine Yellow; Glucose Urine UA Negative (Negative); Ketones Urine Negative (Negative); Leukocyte Esterase Urine Negative (Negative); Nitrite Urine Negative (Negative); Protein Urine Negative (Negative); Specific Gravity Urine 1.015 (1.000-1.030); Urobilinogen Urine Negative (Negative)
[2020-12-19] MEDS: INSULIN ASPART 100 UNITS/ML 3 ML PEN SC SCH ×5 (04:12→20:22)
[2020-12-19 07:06] LABS: Hematocrit (blood only) 36.8 % (37-47); Hemoglobin 12.2 g/dL (12.0-16.0); Immature Granulocytes # (auto) 0.01 K/uL (0.00-0.02); Immature Granulocytes % (auto) 0.3 %; Lymphocytes # (auto) 0.54 K/uL (1.2-3.4); Lymphocytes % (auto) 18.6 %; Mean Corpuscular Hemoglobin 29.5 pg (25-34); Mean Corpuscular Hgb Conc 33.2 g/dL (32-36); Mean Corpuscular Volume 88.9 fL (80-100); Mean Platelet Volume 9.5 fL (7.4-10.4); Monocytes # (auto) 0.39 K/uL (0.11-0.59); Monocytes % (auto) 13.4 %; Neutrophils # (auto) 1.96 K/uL (1.4-6.5); Neutrophils % (auto) 67.7 %; Platelet Count 224 K/uL (130-400); RDW Coefficient of Variation 15.1 % (11.5-14.5); RDW Standard Deviation 48.9 fL (36.4-46.3); Red Blood Count 4.14 M/uL (4.2-5.4)
[2020-12-19] MEDS: ALBUT/IPRATROP 3MG/0.5MG NEB 3 ML VIAL NEB SCH ×4 (07:09→19:20)
[2020-12-19 07:35] LABS: Calcium 8.7 mg/dl (8.5-10.1); Creatinine Clr Calc Pharmacy 68.3 ml/min; Est GFR (African American) 95.8; Est GFR (Non-African American) 82.6; Magnesium 2.5 mg/dl (1.8-2.4); Potassium 3.4 mmol/L (3.5-5.1)
[2020-12-19] MEDS: FLUTICASONE/VILANTEROL 200/25MCG 14 PUFFS/INHALER INH SCH (08:14)
[2020-12-19] MEDS: ENOXAPARIN INJ 40 MG/0.4 ML SYR SQ SCH ×2 (08:15→20:06)
[2020-12-19] MEDS: CHOLECALCIFEROL 1,000 UNITS 25 MCG TAB PO SCH (08:16)
[2020-12-19] MEDS: GABAPENTIN 300 MG CAP PO SCH ×3 (08:16→20:07)
[2020-12-19] MEDS: PANTOprazole 40 MG TAB PO SCH (08:16)
[2020-12-19] MEDS: ATENOLOL 25 MG TABLET PO SCH (08:17)
[2020-12-19] MEDS: MONTELUKAST SODIUM 10 MG TABLET PO SCH (08:17)
[2020-12-19] MEDS: hydroCHLOROthiazide 25 MG TAB PO SCH (08:17)
[2020-12-19] MEDS: DOXYCYCLINE HYCLATE 100 MG CAP PO SCH ×2 (08:17→20:06)
[2020-12-19] MEDS: dexAMETHasone 6 MG in SYRINGE 0 ML IV SCH (08:18)
[2020-12-19] MEDS: ESCITALOPRAM OXALATE 20 MG TAB PO SCH (08:18)
[2020-12-19] MEDS: LOSARTAN POTASSIUM 25 MG TAB PO SCH (08:18)
[2020-12-19] MEDS ORDERED: POTASSIUM CHLORIDE CRTAB 20 MEQ TABCR PO ONE (08:30)
--- NOTE | 2020-12-19 10:02 | Pharmacy Report ---
Pharmacy Glycemic Short Note 2 - Date of Service December 19, 2020 - Glycemic Short BSG Results (Last 24 hours): 12/18/20 12/18/20 12/18/20 12:45 13:26 19:13 Glucose 111 H Cancelled POC Glucose 176 H 12/18/20 12/19/20 12/19/20 23:48 03:56 06:29 Glucose 139 H POC Glucose 175 H 161 H OUTPATIENT ANTIDIABETIC REGIMEN: * N/A * A1c pending for 12/19/20 ASSESSMENT: * 80yo female admitted for COVID-19 PNA. * Pt without a history of DM - no antidiabetic medications as an outpatient. A1c pending. * Pt initiated on IV Dexamethasone, antibiotics etc for COVID. Hyperglycemia likely stress response and steroid induced. * Pt received DXM yesterday which only yielded mild elevations in BSGs. NPH to cover DXM may not be necessary. Will continue with bolus insulin monotherapy and add NPH if BSG > 180. PLAN FOR INPATIENT GLYCEMIC CONTROL: * Basal insulin * N/A; hold for now. Will consider weight based NPH if BSG > 180 mg/dl * Bolus insulin * NovoLog per scale ACHS or Q6hrs while NPO * Goal Range: Low 110 mg/dL - High 140 mg/dL * Correction Factor: 25 mg/dL/unit * Nutritional / Prandial insulin per carb ratio of 1 unit per 8 grams CHO consumed PLAN FOR DISCHARGE: * Pending based on A1c
[2020-12-19 12:12] LABS: Estimated Average Glucose 151 mg/dl; Hemoglobin A1C 6.9 % (4.5-5.6)
[2020-12-19] MEDS ORDERED: FUROSEMIDE 20 MG in SYRINGE 0 ML IV ONE (13:15)
[2020-12-19] MEDS ORDERED: FUROSEMIDE 40 MG/4 ML VIAL IV ONE (13:15)
--- NOTE | 2020-12-19 13:30 | Hospitalist Progress Note ---
Date of Service December 19, 2020 Assessment & Plan (1) Pneumonia due to 2019-nCoV: Acute respiratory failure with hypoxia COVID 19 pneumonia Acute Asthma Exacerbation COVID Screen: Positive On 12/18/20 CXR: Cardiomegaly with prominence of the pulmonary vasculature. Correlate clinically for evidence of mild congestive failure. Procalcitonin: < 0.05 Troponin negative CRP:3.10 Ferritin: 258 D-Dimer:490 Blood Cultures: pending Continue Remdesivir, Dexamethasone as per Protocol Day #2 Continue doxycycline 100 mg twice daily empirically May not benefit from coalescent plasma given onset of symptoms 4 to 5 weeks ago Isolation precautions--Airborne/Contact Consult Pulmonology/ID if needed Encourage frequent Proning Lasix as needed Albuterol/Nebs PRN Continue Supplemental Oxygen as needed DVT prophylaxis: Lovenox Monitor LFTs, renal function while on Remdesivir Continue home inhalers Recheck CXR in AM Hypokalemia Hypomagnesemia Secondary to GI losses Replace electrolytes as needed Monitor DM Type II: well controlled Not on any meds at home Last A1c:6.9 ISS, basal Insulin, Accu checks, Diabetic diet Pharmacy Glycemic control consult Pharmacy to manage Insulin Reports H/O intolerance to Metformin before May need to be discharged on p.o. med upon discharge Morbid obesity BMI:40 B/L Invasive ductal carcinoma S/P partial mastectomy S/P radiation therapy in April [address] Hakeem Lebron oncology as outpatient Continue to hold anastrozole as per oncology Mood disorder Continue escitalopram Dyslipidemia On Statin Obstructive sleep apnea on CPAP HTN Continue home meds DVT Px: Lovenox SQ Code Status Full Code Disposition PT/OT prior to discharge Admission and Anticipated Discharge Date Admission Date: December 18, 2020 Subjective Patient is seen and examined at bedside Less short of breath today States cough is about the same as yesterday Wheezing much improved Denies chest pain, dizziness, nausea, vomiting, abdominal pain, diarrhea Offers no other complaints Saturating low 90s on 2 L of supplemental oxygen Review of Systems Review of Systems: All systems reviewed & are unremarkable except as noted in HPI & below Physical Exam Physical Exam: Physical Exam: Vitals signs as noted above General Appearance:Morbid obesity, no apparent distress Head: normocephalic, Atraumatic Eyes: normal inspection, EOMI Neck: supple, Trachea midline Respiratory/Chest: Decreased breath sounds, scattered wheezes, minimal basal crackles Cardiovascular: S1, S2, No murmur Abdomen/GI:Soft, Non tender, Bowel sounds present Extremities/Musculoskelatal:normal inspection, Trace pedal edema Neurologic/Psych:AAOX3, grossly no focal neurological deficits Skin: normal color, warm Results & Data Results & Data ([facility]) Vital Signs (Past 12 Hours) Vital Signs Temp Pulse Pulse Resp BP Pulse Ox 12/19/20 11:57 36.7 C 67 16 119/59 L 93 12/19/20 11:13 72 18 95 12/19/20 08:00 54 L 12/19/20 07:46 37.2 C 67 18 126/64 94 12/19/20 07:10 60 18 92 12/19/20 05:09 66 20 93 12/19/20 03:57 36.8 C 57 L 20 130/63 93 Laboratory Results Short CBC 12/18/20 12/19/20 Range/Units 13:26 06:29 WBC 4.70 L 2.90 L (4.8-10.8) K/uL Hgb 12.5 12.2 (12.0-16.0) g/dL Hct 37.3 36.8 L (37-47) % Plt Count 211 224 (130-400) K/uL BMP 12/18/20 12/19/20 13:26 06:29 Sodium Cancelled 138 Potassium Cancelled 3.4 L Chloride Cancelled 101 Carbon Dioxide Cancelled 31 BUN Cancelled 16 Creatinine Cancelled 0.68 Glucose Cancelled 139 H Calcium Cancelled 8.7 Cardiac Enzymes 12/18/20 12/18/20 Range/Units 12:45 13:26 Troponin I < 0.015 Cancelled (0-0.045) ng/ml Liver Function 12/18/20 12/18/20 Range/Units 12:45 13:26 Total Bilirubin 0.6 Cancelled (0.2-1) mg/dl AST Cancelled ALT Cancelled Alkaline Phosphatase 61 Cancelled (45-117) U/L Albumin Cancelled Urine 12/19/20 Range/Units 00:00 Urine Color Yellow Urine Appearance Clear (Clear) Urine pH 5.0 (4.5-7.5) Ur Specific [place] 1.015 (1.000-1.030) Urine Protein Negative (Negative) Urine Glucose (UA) Negative (Negative)
[2020-12-19] MEDS: REMDESIVIR 100 MG in SODIUM CHLORIDE 0.9% 230 ML IV SCH (19:57)
[2020-12-19] MEDS: ATORVASTATIN 20 MG TAB PO SCH (20:07)
[2020-12-19] MEDS: SODIUM CHLORIDE 0.9% 10ML FLUSH IV SCH (20:07)
[2020-12-19] MEDS: BENZONATATE 100 MG CAPSULE PO PRN (23:32)
[2020-12-20 06:28] LABS: Basophils # (auto) 0.01 K/uL (0-0.2); Basophils % (auto) 0.1 %; Hematocrit (blood only) 37.4 % (37-47); Hemoglobin 12.2 g/dL (12.0-16.0); Immature Granulocytes # (auto) 0.01 K/uL (0.00-0.02); Immature Granulocytes % (auto) 0.1 %; Lymphocytes % (auto) 6.5 %; Mean Corpuscular Hemoglobin 29.1 pg (25-34); Mean Corpuscular Hgb Conc 32.6 g/dL (32-36); Mean Corpuscular Volume 89.3 fL (80-100); Mean Platelet Volume 9.6 fL (7.4-10.4); Monocytes # (auto) 0.88 K/uL (0.11-0.59); Monocytes % (auto) 9.6 %; Neutrophils % (auto) 83.7 %; Platelet Count 287 K/uL (130-400); RDW Coefficient of Variation 15.1 % (11.5-14.5); RDW Standard Deviation 49.1 fL (36.4-46.3); Red Blood Count 4.19 M/uL (4.2-5.4)
[2020-12-20 06:53] LABS: Calcium 8.4 mg/dl (8.5-10.1); Est GFR (African American) 87.3; Est GFR (Non-African American) 75.3; Magnesium 2.2 mg/dl (1.8-2.4); Potassium 3.5 mmol/L (3.5-5.1)
[2020-12-20] MEDS: ALBUT/IPRATROP 3MG/0.5MG NEB 3 ML VIAL NEB SCH (07:36)
--- NOTE | 2020-12-20 08:48 | XRay Report ---
SINGLE VIEW CHEST CLINICAL HISTORY: Covid pneumonia. FINDINGS: An AP, portable, upright chest radiograph is compared to study dated 06/25/2019. The examinat ion is degraded by portable technique and patient rotation. The heart is mildly enlarged noting ather osclerotic calcification of the thoracic aorta. The pulmonary vasculature is noncongested. There is b ibasilar atelectasis. No large pleural effusion or pneumothorax is seen. The skeletal structures are osteopenic. The bony thorax is grossly intact. IMPRESSION: Cardiomegaly with no acute cardiopulmonary abnormality. ACT 112: Negative or not required by law. Electronically signed by: Benny Chacko M.D. 12/20/2020 8:47 AM
[2020-12-20] MEDS: GABAPENTIN 300 MG CAP PO SCH ×3 (09:07→20:25)
[2020-12-20] MEDS: DOXYCYCLINE HYCLATE 100 MG CAP PO SCH ×2 (09:07→20:25)
[2020-12-20] MEDS: PANTOprazole 40 MG TAB PO SCH (09:07)
[2020-12-20] MEDS: LOSARTAN POTASSIUM 25 MG TAB PO SCH (09:07)
[2020-12-20] MEDS: ATENOLOL 25 MG TABLET PO SCH (09:07)
[2020-12-20] MEDS: hydroCHLOROthiazide 25 MG TAB PO SCH (09:08)
[2020-12-20] MEDS: MONTELUKAST SODIUM 10 MG TABLET PO SCH (09:08)
[2020-12-20] MEDS: ESCITALOPRAM OXALATE 20 MG TAB PO SCH (09:08)
[2020-12-20] MEDS: CHOLECALCIFEROL 1,000 UNITS 25 MCG TAB PO SCH (09:08)
[2020-12-20] MEDS: ENOXAPARIN INJ 40 MG/0.4 ML SYR SQ SCH ×2 (09:09→20:24)
[2020-12-20] MEDS: FLUTICASONE/VILANTEROL 200/25MCG 14 PUFFS/INHALER INH SCH (09:09)
[2020-12-20] MEDS: dexAMETHasone 6 MG in SYRINGE 0 ML IV SCH (09:09)
[2020-12-20] MEDS: INSULIN ASPART 100 UNITS/ML 3 ML PEN SC SCH ×4 (09:10→20:23)
--- NOTE | 2020-12-20 11:51 | Hospitalist Progress Note ---
Date of Service December 20, 2020 Assessment & Plan (1) Pneumonia due to 2019-nCoV: Acute respiratory failure with hypoxia COVID 19 pneumonia Acute Asthma Exacerbation COVID Screen: Positive On 12/18/20 CXR: Cardiomegaly with prominence of the pulmonary vasculature. Correlate clinically for evidence of mild congestive failure. Procalcitonin: < 0.05 Troponin negative CRP:3.10 Ferritin: 258 D-Dimer:490 Blood Cultures: pending Continue Remdesivir, Dexamethasone as per Protocol Day #2 Continue doxycycline 100 mg twice daily empirically May not benefit from coalescent plasma given onset of symptoms 4 to 5 weeks ago Isolation precautions--Airborne/Contact Consult Pulmonology/ID if needed Encourage frequent Proning Lasix as needed Albuterol/Nebs PRN Continue Supplemental Oxygen as needed DVT prophylaxis: Lovenox Monitor LFTs, renal function while on Remdesivir Continue home inhalers Recheck CXR in AM Hypokalemia Hypomagnesemia Secondary to GI losses Replace electrolytes as needed Monitor DM Type II: well controlled Not on any meds at home Last A1c:6.9 ISS, basal Insulin, Accu checks, Diabetic diet Pharmacy Glycemic control consult Pharmacy to manage Insulin Reports H/O intolerance to Metformin before May need to be discharged on p.o. med upon discharge Morbid obesity BMI:40 B/L Invasive ductal carcinoma S/P partial mastectomy S/P radiation therapy in April [address] Hakeem Lebron oncology as outpatient Continue to hold anastrozole as per oncology Mood disorder Continue escitalopram Dyslipidemia On Statin Obstructive sleep apnea on CPAP HTN Continue home meds DVT Px: Lovenox SQ Code Status Full Code Disposition PT/OT prior to discharge, Labs checked, On 3 L NC am, DC Friday after last Remdesivir Dose ROS-No Headache, No Visual Changes, No Nausea, No Vomiting, No Fever, No Chills, No Neck Pain or Stiffness, No Chest Pain, No Palpitations, + SOB, + MENDES, + Cough, No Sputum, No Wheezing, No Abdominal Pain, No Diarrhea, No Hematemesis, No Hemoptysis, No Unexpected Weight Loss, No Flank pain, No Melena, No Hematochezia, No Frequency, No Urgency, No Burning, No Hematuria, No Rashes, No Diaphoresis. Appetite is Normal, Weak Physical Exam Gen-AAO x 3, NAD, Afebrile, Obese Head-NCAT, EOMI, PERRLA, Anicteric Sclera, No Posterior Pharyngeal Erythema Neck-Supple, No JVD, No Thyromegaly, No Masses, No LAD, No Bruits Lungs-Clear to Auscultation Bilaterally, No Rales, No Rhonchi, No Wheezing, No Crepitus Chest-No S4, +S1, +S2, No S3, No Murmurs, No Rubs, No Gallops, No Ectopy Abdomen-Soft, Bowel Sounds Present, Non Tender, Non Distended, No Hepatomegaly, No Splenomegaly, No Palpable Masses, No Rebound, No Rigidity, No Guarding Musculoskeletal-Full Range of Motion Bilaterally, No CVAT Extremities-No Cyanosis, No Clubbing, No Edema Nuero-Cranial Nerves II-XII grossly intact, Motor WNL, DTRs WNL, Strength WNL, Non Focal Psych-Normal Mood Admission and Anticipated Discharge Date Admission Date: December 18, 2020 Results & Data Results & Data ([facility]) Vital Signs (Past 12 Hours) Vital Signs Temp Pulse Pulse Pulse Resp BP Pulse Ox 12/20/20 11:29 36.6 C 68 20 113/55 L 94 12/20/20 07:41 36.6 C 62 23 124/57 L 93 12/20/20 07:38 64 18 93 12/20/20 03:26 36.9 C 60 18 137/74 94 12/20/20 02:20 54 L 16 91
[2020-12-20] MEDS: BENZONATATE 100 MG CAPSULE PO PRN ×2 (12:14→22:52)
[2020-12-20] MEDS: ATORVASTATIN 20 MG TAB PO SCH (20:24)
[2020-12-20] MEDS: REMDESIVIR 100 MG in SODIUM CHLORIDE 0.9% 230 ML IV SCH (20:28)
[2020-12-20] MEDS: SODIUM CHLORIDE 0.9% 10ML FLUSH IV SCH (22:23)
[2020-12-21 06:44] LABS: Hematocrit (blood only) 39.2 % (37-47); Hemoglobin 12.9 g/dL (12.0-16.0); Mean Corpuscular Hemoglobin 29.5 pg (25-34); Mean Corpuscular Hgb Conc 32.9 g/dL (32-36); Mean Corpuscular Volume 89.7 fL (80-100); Mean Platelet Volume 9.6 fL (7.4-10.4); Platelet Count 330 K/uL (130-400); RDW Coefficient of Variation 15.2 % (11.5-14.5); RDW Standard Deviation 50.2 fL (36.4-46.3); Red Blood Count 4.37 M/uL (4.2-5.4); White Blood Count 9.29 K/uL (4.8-10.8)
[2020-12-21 07:21] LABS: BUN Creatinine Ratio 41.1 (10-20); Calcium 8.7 mg/dl (8.5-10.1); Creatinine Clr Calc Pharmacy 68.9 ml/min; Est GFR (African American) 96.2; Potassium 3.6 mmol/L (3.5-5.1)
[2020-12-21] MEDS: GABAPENTIN 300 MG CAP PO SCH ×3 (07:33→20:17)
[2020-12-21] MEDS: CHOLECALCIFEROL 1,000 UNITS 25 MCG TAB PO SCH (07:33)
[2020-12-21] MEDS: DOXYCYCLINE HYCLATE 100 MG CAP PO SCH ×2 (07:33→20:15)
[2020-12-21] MEDS: PANTOprazole 40 MG TAB PO SCH (07:33)
[2020-12-21] MEDS: MONTELUKAST SODIUM 10 MG TABLET PO SCH (07:34)
[2020-12-21] MEDS: ESCITALOPRAM OXALATE 20 MG TAB PO SCH (07:34)
[2020-12-21] MEDS: hydroCHLOROthiazide 25 MG TAB PO SCH (07:34)
[2020-12-21] MEDS: FLUTICASONE/VILANTEROL 200/25MCG 14 PUFFS/INHALER INH SCH (07:35)
[2020-12-21] MEDS: ENOXAPARIN INJ 40 MG/0.4 ML SYR SQ SCH ×2 (07:35→20:15)
[2020-12-21] MEDS: dexAMETHasone 6 MG in SYRINGE 0 ML IV SCH (07:35)
[2020-12-21] MEDS: LOSARTAN POTASSIUM 25 MG TAB PO SCH (07:35)
[2020-12-21] MEDS: BENZONATATE 100 MG CAPSULE PO PRN (07:41)
[2020-12-21] MEDS: ATENOLOL 25 MG TABLET PO SCH (07:47)
--- NOTE | 2020-12-21 08:31 | Hospitalist Progress Note ---
Date of Service December 21, 2020 Assessment & Plan (1) Pneumonia due to 2019-nCoV: Acute respiratory failure with hypoxia COVID 19 pneumonia Acute Asthma Exacerbation COVID Screen: Positive On 12/18/20 CXR: Cardiomegaly with prominence of the pulmonary vasculature. Correlate clinically for evidence of mild congestive failure. Procalcitonin: < 0.05 Troponin negative CRP:3.10 Ferritin: 258 D-Dimer:490 Blood Cultures: pending Continue Remdesivir, Dexamethasone as per Protocol Day #2 Continue doxycycline 100 mg twice daily empirically May not benefit from coalescent plasma given onset of symptoms 4 to 5 weeks ago Isolation precautions--Airborne/Contact Encourage frequent Proning Lasix as needed Albuterol/Nebs PRN Continue Supplemental Oxygen as needed DVT prophylaxis: Lovenox Monitor LFTs, renal function while on Remdesivir Continue home inhalers CXR improved Hypokalemia Hypomagnesemia Secondary to GI losses Replace electrolytes as needed Monitor DM Type II: well controlled Not on any meds at home Last A1c:6.9 ISS, basal Insulin, Accu checks, Diabetic diet Pharmacy Glycemic control consult Pharmacy to manage Insulin Reports H/O intolerance to Metformin before May need to be discharged on p.o. med upon discharge Morbid obesity BMI:40 B/L Invasive ductal carcinoma S/P partial mastectomy S/P radiation therapy in April [address] Hakeem Lebron oncology as outpatient Continue to hold anastrozole as per oncology Mood disorder Continue escitalopram Dyslipidemia On Statin Obstructive sleep apnea on CPAP HTN Continue home meds DVT Px: Lovenox SQ Code Status Full Code Disposition PT/OT prior to discharge, Labs checked, On 3 L NC this am, DC Friday after last Remdesivir Dose ROS-No Headache, No Visual Changes, No Nausea, No Vomiting, No Fever, No Chills, No Neck Pain or Stiffness, No Chest Pain, No Palpitations, less SOB, + MENDES, + Cough, No Sputum, No Wheezing, No Abdominal Pain, No Diarrhea, No Hematemesis, No Hemoptysis, No Unexpected Weight Loss, No Flank pain, No Melena, No Hematochezia, No Frequency, No Urgency, No Burning, No Hematuria, No Rashes, No Diaphoresis. Appetite is Normal, Weak Physical Exam Gen-AAO x 3, NAD, Afebrile, Obese Head-NCAT, EOMI, PERRLA, Anicteric Sclera, No Posterior Pharyngeal Erythema Neck-Supple, No JVD, No Thyromegaly, No Masses, No LAD, No Bruits Lungs-Clear to Auscultation Bilaterally, No Rales, No Rhonchi, No Wheezing, No Crepitus Chest-No S4, +S1, +S2, No S3, No Murmurs, No Rubs, No Gallops, No Ectopy Abdomen-Soft, Bowel Sounds Present, Non Tender, Non Distended, No Hepatomegaly, No Splenomegaly, No Palpable Masses, No Rebound, No Rigidity, No Guarding Musculoskeletal-Full Range of Motion Bilaterally, No CVAT Extremities-No Cyanosis, No Clubbing, No Edema Nuero-Cranial Nerves II-XII grossly intact, Motor WNL, DTRs WNL, Strength WNL, Non Focal Psych-Normal Mood Admission and Anticipated Discharge Date Admission Date: December 18, 2020 Results & Data Results & Data ([facility] Vital Signs (Past 12 Hours) Vital Signs Temp Pulse Pulse Resp BP Pulse Ox 12/21/20 07:29 36.1 C L 58 L 20 131/70 93 12/21/20 03:27 36.6 C 56 L 20 148/64 H 93 12/21/20 03:02 47 L 20 89 L 12/20/20 23:22 36.6 C 56 L 18 116/60 91 12/20/20 23:00 54 L 12/20/20 22:31 63 20 90
[2020-12-21] MEDS: INSULIN ASPART 100 UNITS/ML 3 ML PEN SC SCH ×4 (08:53→22:17)
[2020-12-21] MEDS: REMDESIVIR 100 MG in SODIUM CHLORIDE 0.9% 230 ML IV SCH (20:14)
[2020-12-21] MEDS: ATORVASTATIN 20 MG TAB PO SCH (20:17)
[2020-12-21] MEDS: SODIUM CHLORIDE 0.9% 10ML FLUSH IV SCH (22:16)
[2020-12-22 07:08] LABS: Albumin Level 2.7 gm/dl (3.4-5.0); BUN Creatinine Ratio 49.1 (10-20); Calcium 8.5 mg/dl (8.5-10.1); Creatinine Clr Calc Pharmacy 83.6 ml/min; Est GFR (African American) 102.1; Est GFR (Non-African American) 88.1; Potassium 3.7 mmol/L (3.5-5.1)
[2020-12-22 07:11] LABS: Albumin Globulin Ratio 0.8 (0.9-2); Bilirubin,Total 0.4 mg/dl (0.2-1); Globulin 3.4 gm/dl (2.5-4.0); Total Protein 6.1 gm/dl (6.4-8.2)
[2020-12-22] MEDS: dexAMETHasone 6 MG in SYRINGE 0 ML IV SCH (08:40)
[2020-12-22] MEDS: FLUTICASONE/VILANTEROL 200/25MCG 14 PUFFS/INHALER INH SCH (08:41)
[2020-12-22] MEDS: GABAPENTIN 300 MG CAP PO SCH ×3 (08:41→20:35)
[2020-12-22] MEDS: ENOXAPARIN INJ 40 MG/0.4 ML SYR SQ SCH ×2 (08:41→19:40)
[2020-12-22] MEDS: LOSARTAN POTASSIUM 25 MG TAB PO SCH (08:42)
[2020-12-22] MEDS: MONTELUKAST SODIUM 10 MG TABLET PO SCH (08:42)
[2020-12-22] MEDS: ATENOLOL 25 MG TABLET PO SCH (08:42)
[2020-12-22] MEDS: DOXYCYCLINE HYCLATE 100 MG CAP PO SCH ×2 (08:42→20:35)
[2020-12-22] MEDS: PANTOprazole 40 MG TAB PO SCH (08:43)
[2020-12-22] MEDS: hydroCHLOROthiazide 25 MG TAB PO SCH (08:43)
[2020-12-22] MEDS: CHOLECALCIFEROL 1,000 UNITS 25 MCG TAB PO SCH (08:43)
[2020-12-22] MEDS: ESCITALOPRAM OXALATE 20 MG TAB PO SCH (08:43)
[2020-12-22] MEDS: INSULIN ASPART 100 UNITS/ML 3 ML PEN SC SCH ×4 (09:09→20:38)
--- NOTE | 2020-12-22 09:15 | Hospitalist Progress Note ---
Date of Service December 22, 2020 Assessment & Plan (1) Pneumonia due to 2019-nCoV: Acute respiratory failure with hypoxia COVID 19 pneumonia Acute Asthma Exacerbation COVID Screen: Positive On 12/18/20 CXR: Cardiomegaly with prominence of the pulmonary vasculature. Correlate clinically for evidence of mild congestive failure. Procalcitonin: < 0.05 Troponin negative CRP:3.10 Ferritin: 258 D-Dimer:490 Blood Cultures: negative Continue Remdesivir, Dexamethasone as per Protocol Day Continue doxycycline 100 mg twice daily empirically May not benefit from coalescent plasma given onset of symptoms 4 to 5 weeks ago Isolation precautions--Airborne/Contact Encourage frequent Proning Lasix as needed Albuterol/Nebs PRN Continue Supplemental Oxygen as needed DVT prophylaxis: Lovenox Monitor LFTs, renal function while on Remdesivir Continue home inhalers CXR improved 2-step ordered for today, DC 12/23 Hypokalemia Hypomagnesemia Secondary to GI losses Replace electrolytes as needed Monitor DM Type II: well controlled Not on any meds at home Last A1c:6.9 ISS, basal Insulin, Accu checks, Diabetic diet Pharmacy Glycemic control consult Pharmacy to manage Insulin Reports H/O intolerance to Metformin before May need to be discharged on p.o. med upon discharge Morbid obesity BMI:40 B/L Invasive ductal carcinoma S/P partial mastectomy S/P radiation therapy in April [address] Hakeem Lebron oncology as outpatient Continue to hold anastrozole as per oncology Mood disorder Continue escitalopram Dyslipidemia On Statin Obstructive sleep apnea on CPAP HTN Continue home meds DVT Px: Lovenox SQ Code Status Full Code Disposition PT/OT, Labs checked, On 3 L NC this am, DC Friday after last Remdesivir Dose ROS-No Headache, No Visual Changes, No Nausea, No Vomiting, No Fever, No Chills, No Neck Pain or Stiffness, No Chest Pain, No Palpitations, less SOB, + MENDES, + Cough, No Sputum, No Wheezing, No Abdominal Pain, No Diarrhea, No Hematemesis, No Hemoptysis, No Unexpected Weight Loss, No Flank pain, No Melena, No Hematochezia, No Frequency, No Urgency, No Burning, No Hematuria, No Rashes, No Diaphoresis. Appetite is Normal, Weak Physical Exam Gen-AAO x 3, NAD, Afebrile, Obese Head-NCAT, EOMI, PERRLA, Anicteric Sclera, No Posterior Pharyngeal Erythema Neck-Supple, No JVD, No Thyromegaly, No Masses, No LAD, No Bruits Lungs-Clear to Auscultation Bilaterally, No Rales, No Rhonchi, No Wheezing, No Crepitus Chest-No S4, +S1, +S2, No S3, No Murmurs, No Rubs, No Gallops, No Ectopy Abdomen-Soft, Bowel Sounds Present, Non Tender, Non Distended, No Hepatomegaly, No Splenomegaly, No Palpable Masses, No Rebound, No Rigidity, No Guarding Musculoskeletal-Full Range of Motion Bilaterally, No CVAT Extremities-No Cyanosis, No Clubbing, No Edema Nuero-Cranial Nerves II-XII grossly intact, Motor WNL, DTRs WNL, Strength WNL, Non Focal Psych-Normal Mood Admission and Anticipated Discharge Date Admission Date: December 18, 2020 Results & Data Results & Data ([facility]) Vital Signs (Past 12 Hours) Vital Signs Temp Pulse Pulse Pulse Pulse Pulse Pulse 12/22/20 08:10 78 79 78 62 12/22/20 07:26 36.5 C 12/22/20 03:54 36.3 C L 80 12/22/20 03:10 49 L 12/22/20 00:00 36.0 C L 12/21/20 22:00 49 L Pulse Resp Resp Resp Resp Resp BP 12/22/20 08:10 20 20 20 18 12/22/20 07:26 63 20 153/63 H 12/22/20 03:54 18 138/66 12/22/20 03:10 20 12/22/20 00:00 51 L 18 124/55 L 12/21/20 22:00 Pulse Ox Pulse Ox Pulse Ox Pulse Ox Pulse Ox 12/22/20 08:10 92 86 L 90 91 12/22/20 07:26 95 12/22/20 03:54 94 12/22/20 03:10 92 12/22/20 00:00 91 12/21/20 22:00
[2020-12-22] MEDS: BENZONATATE 100 MG CAPSULE PO PRN (12:48)
[2020-12-22] MEDS: REMDESIVIR 100 MG in SODIUM CHLORIDE 0.9% 230 ML IV SCH (19:39)
[2020-12-22] MEDS: SODIUM CHLORIDE 0.9% 10ML FLUSH IV SCH (19:40)
[2020-12-22] MEDS: ATORVASTATIN 20 MG TAB PO SCH (20:36)
[2020-12-23 07:38] LABS: Alanine Aminotransferase 28 U/L (12-78); Aspartate Aminotransferase 16 U/L (15-37)
--- NOTE | 2020-12-23 07:53 | Discharge Summary ---
Date of Service December 23, 2020 Admission HPI Per Admitting Provider Patient is a 80-year-old female with history of morbid obesity, diabetes mellitus type 2, breast cancer, GERD, mood disorder, dyslipidemia, degenerative disc disease, asthma, skin cancer, obstructive sleep apnea on CPAP and other medical problems presents with history of worsening cough, shortness of breath, wheezing since 4 to 5 weeks duration. Patient reports cough with yellowish expectoration since last few weeks and has been gradually worsening associated with shortness of breath and low-grade fever since last 2 to 3 days duration. Patient has been using her home inhalers more frequently to help with wheezing and shortness of breath. She states having worsening shortness of breath with exertion. Also noted to have nausea associated with vomiting and diarrhea today. Reports dizziness especially while standing and with ambulation. Has been on anastrozole for breast cancer and has been lately intolerant secondary to hot flashes. Reports not using CPAP since last 4 to 5 weeks secondary to treatment for skin cancer on October 30. Denies any history of chest pain, palpitations, pedal edema, hemoptysis, fall, head trauma, LOC, headache, change in vision, double/blurry vision, vertigo, bowel/bladder incontinence, abdominal pain, blood in stools, change in appetite, hematuria, dysuria, recent travel, sick contact with COVID, recent change in medications. Admission Exam Per Admitting Provider Physical Exam: Vitals signs as noted above General Appearance:Morbid obesity, no apparent distress Head: normocephalic, Atraumatic Eyes: normal inspection, EOMI Neck: supple, Trachea midline Respiratory/Chest: Decreased breath sounds, B/L wheezes, minimal basal crackles Cardiovascular: S1, S2, No murmur Abdomen/GI:Soft, Non tender, Bowel sounds present Extremities/Musculoskelatal:normal inspection, Trace pedal edema Neurologic/Psych:AAOX3, grossly no focal neurological deficits Skin: normal color, warm Principal Diagnosis Acute respiratory failure with hypoxia COVID 19 pneumonia Hypokalemia Hypomagnesemia DM Type II: Morbid obesity B/L Invasive ductal carcinoma Mood disorder Dyslipidemia Obstructive sleep apnea HTN Discharge Exam See below Discharge Data Allergies Allergy/AdvReac Type Severity Reaction Status Date / Time tetanus toxoid, adsorbed Allergy Unknown SEVERE Verified 08/31/20 13:55 LOCAL EDEMA metformin AdvReac Unknown FLU LIKE Verified 08/31/20 13:55 SYMPTOMS Consultations 12/18/20 14:51 ED Decision to Admit Stat 12/18/20 18:17 Consult Case Management - Discharge Planning Routine Current Diagnoses Pneumonia due to coronavirus disease 2019 (12/18/20) COVID-19 (12/18/20) Allergies tetanus toxoid, adsorbed Allergy (Unknown, Verified 08/31/20 13:55) SEVERE LOCAL EDEMA metformin Adverse Reaction (Unknown, Verified 08/31/20 13:55) FLU LIKE SYMPTOMS Height/Weight/Isolation Height 5 ft 1 in Weight 92.8 kg Isolation Type Airborne Precautions,Contact Precautions Chemistry 12/22/20 06:11 Sodium 140 Potassium 3.7 Chloride 105 Carbon Dioxide 30 Anion Gap 5.0 BUN 27 H Creatinine 0.56 L Glucose 98 Hospital Course (1) Pneumonia due to 2019-nCoV: Acute respiratory failure with hypoxia COVID 19 pneumonia Acute Asthma Exacerbation COVID Screen: Positive On 12/18/20 CXR: Cardiomegaly with prominence of the pulmonary vasculature. Correlate clinically for evidence of mild congestive failure. Procalcitonin: < 0.05 Troponin negative CRP:3.10 Ferritin: 258 D-Dimer:490 Blood Cultures: negative Continue Remdesivir, Dexamethasone as per Protocol Day Continue doxycycline 100 mg twice daily empirically May not benefit from coalescent plasma given onset of symptoms 4 to 5 weeks ago Isolation precautions--Airborne/Contact Encourage frequent Proning Lasix as needed Albuterol/Nebs PRN Continue Supplemental Oxygen as needed DVT prophylaxis: Lovenox Monitor LFTs, renal function while on Remdesivir Continue home inhalers CXR improved 2-step ordered on 12/22 and she requires O2 on DC Hypokalemia Hypomagnesemia Secondary to GI losses Replace electrolytes as needed Monitor DM Type II: well controlled Not on any meds at home Last A1c:6.9 ISS, basal Insulin, Accu checks, Diabetic diet Pharmacy Glycemic control consult Pharmacy to manage Insulin Reports H/O intolerance to Metformin before May need to be discharged on p.o. med upon discharge Morbid obesity BMI:40 B/L Invasive ductal carcinoma S/P partial mastectomy S/P radiation therapy in April [address] Hakeem Lebron oncology as outpatient Continue to hold anastrozole as per oncology Mood disorder Continue escitalopram Dyslipidemia On Statin Obstructive sleep apnea on CPAP HTN Continue home meds DVT Px: Lovenox SQ Code Status Full Code Disposition PT/OT, Labs checked, On 3 L NC this am, DC Today after Remdesivir Dose ROS-No Headache, No Visual Changes, No Nausea, No Vomiting, No Fever, No Chills, No Neck Pain or Stiffness, No Chest Pain, No Palpitations, less SOB, + MENDES, + Cough, No Sputum, No Wheezing, No Abdominal Pain, No Diarrhea, No Hematemesis, No Hemoptysis, No Unexpected Weight Loss, No Flank pain, No Melena, No Hematochezia, No Frequency, No Urgency, No Burning, No Hematuria, No Rashes, No Diaphoresis. Appetite is Normal, Weak Physical Exam Gen-AAO x 3, NAD, Afebrile, Obese Head-NCAT, EOMI, PERRLA, Anicteric Sclera, No Posterior Pharyngeal Erythema Neck-Supple, No JVD, No Thyromegaly, No Masses, No LAD, No Bruits Lungs-Clear to Auscultation Bilaterally, No Rales, No Rhonchi, No Wheezing, No Crepitus Chest-No S4, +S1, +S2, No S3, No Murmurs, No Rubs, No Gallops, No Ectopy Abdomen-Soft, Bowel Sounds Present, Non Tender, Non Distended, No Hepatomegaly, No Splenomegaly, No Palpable Masses, No Rebound, No Rigidity, No Guarding Musculoskeletal-Full Range of Motion Bilaterally, No CVAT Extremities-No Cyanosis, No Clubbing, No Edema Nuero-Cranial Nerves II-XII grossly intact, Motor WNL, DTRs WNL, Strength WNL, Non Focal Psych-Normal Mood Total Time Total Time Spent Total Time Spent (In Minutes): 45 min Total Time Includes: Examination of the Patient, Discharge Planning, Medication Reconciliation and Communication With Other Providers Discharge Plan Discharge Items Patient Disposition: Home - Self-Care Reason For Visit: COVID 19 Discharge Diagnosis: Acute respiratory failure with hypoxia COVID 19 pneumonia Hypokalemia Hypomagnesemia DM Type II: Morbid obesity B/L Invasive ductal carcinoma Mood disorder Dyslipidemia Obstructive sleep apnea HTN Condition on Discharge: Fair Health Concerns: Worsening Symptoms Activity: Resume your previous activity Activity Comment: Where Oxygen with activity Lifting: Gradually increase as tolerated Bathing: No limitations Sexual Activity: When tolerated Exercise/Sports: Gradually increase as tolerated Driving/Machine Use: No limitations Weightbearing: Full weightbearing Non-emergency contact: Primary Care Provider and Plush Weaver Call non-emergency contact if: you have any medication questions Follow-up/Referrals: Chacha Cade MD [Primary Care Provider] - Diet: Heart Healthy Addtl Attending Provider Instructions: Dr Cade will titrate Oxygen off when able Pending Studies at Discharge: No Stand-Alone Forms: My [facility], Smoking Cessation Medications and DC Order Prescriptions: New dexamethasone [Decadron] 6 mg tablet 6 mg PO DAILY Qty: 5 RF: 0 Continued atorvastatin [Lipitor] 20 mg tablet 20 mg PO HS RF: 0 atenolol [Tenormin] 25 mg tablet 25 mg PO QAM RF: 0 losartan [Cozaar] 25 mg tablet 25 mg PO QAM RF: 0 montelukast [Singulair] 10 mg tablet 10 mg PO DAILY RF: 0 hydrochlorothiazide 25 mg tablet 25 mg PO QAM RF: 0 fluticasone propionate 50 mcg/actuation spray,suspension 1 sprays INTNAS DAILY PRN (Reason: Congestion) RF: 0 ibuprofen 600 mg tablet 200 mg PO Q4H PRN (Reason: Pain) RF: 0 anastrozole [Arimidex] 1 mg tablet 1 mg PO DAILY RF: 0 benzonatate [Tessalon Perles] 100 mg capsule 100 mg PO TID PRN (Reason: Cough) RF: 0 acetaminophen [Tylenol Arthritis Pain] 650 mg tablet extended release 650 mg PO PRN PRN (Reason: Pain) RF: 0 omeprazole 40 mg capsule,delayed release(DR/EC) 40 mg PO DAILY RF: 0 fluticasone propion-salmeterol [Advair Diskus] 250-50 mcg/dose blister with device 1 puffs INH BID RF: 0 fluocinonide 0.05 % cream 1 applic TOP QID PRN (Reason: itching) Qty: 60 RF: 3 escitalopram oxalate 20 mg tablet 20 mg PO DAILY RF: 0 bumetanide [Bumex] 1 mg Tablet 1 mg PO UD PRN (Reason: Edema) RF: 0 cholecalciferol (vitamin D3) [Vitamin D3] 25 mcg (1,000 unit) Capsule 1,000 unit PO DAILY RF: 0 Refresh Dry Eye Therapy 1-1 % Drops 1 drp OPHTHALMIC (EYE) QID PRN (Reason: Dry Eyes) RF: 0 azelastine 0.15 % (205.5 mcg) [place],Non-Aerosol 2 spray INTRANASAL BID RF: 0 albuterol sulfate [Ventolin HFA] 90 mcg/actuation Hfa Aerosol Inhaler 2 puff INHALATION QID PRN (Reason: Shortness Of Breath) RF: 0 gabapentin 300 mg capsule 300 mg PO TID RF: 0 Discharge Orders: Discharge Order (Routine); Ordered 12/23/20 Ordered By: Keshawn Hart/Other Patient Handouts: 2019-nCoV, COVID-19 Home Care, COVID-19 Plasma Donation, High Blood Sugar (Hyperglycemia), Managing Type 2 Diabetes, COVID-19 Make Face Mask, A1C, Caring for Someone Who Has COVID-19, Disinfecting Your Home of COVID-19, How COVID-19 Spreads Admission Data Admit Date/Time: 12/18/20 16:19 Attending Provider: Keshawn Moore Admit Provider: Abdiaziz Lomax Primary Care Provider: Chacha Cade Other Providers: Abdiaziz Lomax
[2020-12-23] MEDS: GABAPENTIN 300 MG CAP PO SCH (08:25)
[2020-12-23] MEDS: CHOLECALCIFEROL 1,000 UNITS 25 MCG TAB PO SCH (08:25)
[2020-12-23] MEDS: dexAMETHasone 6 MG in SYRINGE 0 ML IV SCH (08:25)
[2020-12-23] MEDS: MONTELUKAST SODIUM 10 MG TABLET PO SCH (08:25)
[2020-12-23] MEDS: ENOXAPARIN INJ 40 MG/0.4 ML SYR SQ SCH (08:25)
[2020-12-23] MEDS: DOXYCYCLINE HYCLATE 100 MG CAP PO SCH (08:26)
[2020-12-23] MEDS: LOSARTAN POTASSIUM 25 MG TAB PO SCH (08:26)
[2020-12-23] MEDS: hydroCHLOROthiazide 25 MG TAB PO SCH (08:26)
[2020-12-23] MEDS: PANTOprazole 40 MG TAB PO SCH (08:27)
[2020-12-23] MEDS: ESCITALOPRAM OXALATE 20 MG TAB PO SCH (08:27)
[2020-12-23] MEDS: FLUTICASONE/VILANTEROL 200/25MCG 14 PUFFS/INHALER INH SCH (08:27)
[2020-12-23] MEDS: INSULIN ASPART 100 UNITS/ML 3 ML PEN SC SCH ×2 (08:32→12:43)
[2020-12-23] MEDS: ATENOLOL 25 MG TABLET PO SCH (08:34)
[2020-12-23] MEDS ORDERED: REMDESIVIR 100 MG in SODIUM CHLORIDE 0.9% 230 ML IV ONE (10:25)
[2020-12-23] MEDS ORDERED: SODIUM CHLORIDE 0.9% 10ML FLUSH IV SCH (10:30)
[2020-12-23 11:26] VITALS: BP 124/65; TEMP 97.5; O2SAT 94
[2020-12-23 13:25] VITALS: PULSE 51
== END 2020-12-23 13:27 | disposition home health service (06) | DRG 177 ==
LOC: ED 12:40 → 2S 16:19 → SUATTDRO 16:19 → 2S 17:46 → 2E 12-20 13:44
DX: G47.33 Obstructive sleep apnea (adult) (pediatric); Z87.891 Personal history of nicotine dependence; F39 Unspecified mood [affective] disorder; J45.901 Unspecified asthma with (acute) exacerbation; E78.5 Hyperlipidemia, unspecified; U07.1 COVID-19; E11.9 Type 2 diabetes mellitus without complications; J12.82 Pneumonia due to coronavirus disease 2019; E83.42 Hypomagnesemia; E66.01 Morbid (severe) obesity due to excess calories; Z68.39 Body mass index [BMI] 39.0-39.9, adult; J96.01 Acute respiratory failure with hypoxia; I10 Essential (primary) hypertension; E87.6 Hypokalemia

== ENCOUNTER 2022-10-30 13:24 | Observation (INO) ==
[2022-10-30] MEDS ORDERED: ALBUT/IPRATROP 3MG/0.5MG NEB 3 ML VIAL INH STA (13:30)
[2022-10-30] MEDS ORDERED: dexAMETHasone**PF** 10 MG/ML VIAL IV ONE (14:04)
[2022-10-30] MEDS ORDERED: ALBUT/IPRATROP 3MG/0.5MG NEB 3 ML VIAL NEB STA (14:04)
[2022-10-30 14:06] LABS: Basophils # (auto) 0.04 K/uL (0-0.2); Basophils % (auto) 0.5 %; Hematocrit (blood only) 41.4 % (34.1-44.9); Hemoglobin 13.4 g/dl (12.0-16.0); Immature Granulocytes # (auto) 0.04 K/uL (0.00-0.02); Immature Granulocytes % (auto) 0.5 %; Lymphocytes # (auto) 0.87 K/uL (1.2-3.4); Lymphocytes % (auto) 11.1 %; Mean Corpuscular Hemoglobin 29.4 pg (25.0-34.0); Mean Corpuscular Hgb Conc 32.4 g/dL (32.0-36.0); Mean Corpuscular Volume 90.8 fL (80.0-100.0); Mean Platelet Volume 9.3 fL (9.4-12.3); Monocytes # (auto) 1.41 K/uL (0.24-0.82); Monocytes % (auto) 17.9 %; Neutrophils # (auto) 5.51 K/uL (1.4-6.5); Platelet Count 250 K/uL (130-400); RDW Coefficient of Variation 13.9 % (11.5-14.5); RDW Standard Deviation 46.4 fL (36.4-46.3); Red Blood Count 4.56 M/uL (3.93-5.22); White Blood Count 7.87 K/ul (4.8-10.8)
--- NOTE | 2022-10-30 14:10 | Emergency Department Note ---
Impression & Plan Acute bronchitis, Hypoxia, Influenza A ED Provider Note NAME: DUSTIN HEIN AGE: 81 SEX: F : 1940 ARRIVES VIA: Walk-In INFORMANT: Patient, ED PROVIDER(S): Savage Bass DO CHIEF COMPLAINT: Cough HPI: The patient is an 81-year-old female who presented to the emergency department for an evaluation of cough and febrile illness. She states her symptoms began 48 hours ago. She started having symptoms Friday. She states she has had significant cough and wheezing. She does have a history of asthma. She has been using her usual medications with only minimal relief of her symptoms. She tried to call her family doctor to be seen. They wanted her to have a COVID test first which she was scheduled to have today. Symptoms started to worsen so she presented to the emergency department. She was placed on protocol orders prior to my evaluation. She had a DuoNeb treatment which she states significantly helped her symptoms. She denies having any hemoptysis. She denies having any back pain. She does complain of some chest pain especially with coughing. She also reports a subjective fever. The patient also complains of headache and sore throat. ROS: See above HPI for pertinent positives & negatives. A total of 10 systems reviewed and were otherwise negative. PAST MEDICAL HISTORY: See Below PAST SURGICAL HISTORY: See Below FAMILY HISTORY: See Below SOCIAL HISTORY: See Below HOME MEDICATIONS: See Below ALLERGIES: See Below VITALS: See Below PHYSICAL EXAMINATION: GENERAL: Patient is awake alert in no acute distress patient is resting comfortably and showing no signs of anxiety EYES: The conjunctivae are clear. The pupils are round and reactive. EARS, NOSE, MOUTH AND THROAT: The nose is without any evidence of any deformity. Mucous membranes are moist. NECK: The neck is nontender and supple. RESPIRATORY: Diminished breath sounds are noted throughout. Expiratory wheezing was noted in both upper lung wright. There is mild conversational dyspnea. There is no retractions appreciated. CARDIOVASCULAR: Regular rate and rhythm noted there no murmurs rubs or gallops normal S1 normal S2. GASTROINTESTINAL: The abdomen is soft. Abdomen is nontender. MUSCULOSKELETAL/EXTREMITIES: There is no evidence of gross deformity full range of motion is noted in the hips and shoulders. SKIN: Skin is warm and dry. There is no significant calf tenderness. NEUROLOGIC: Patient is awake alert and oriented x3. MEDICAL DECISION MAKING: The patient is an 81-year-old female who presented to the emergency department for an evaluation of cough difficulty breathing. The patient was experiencing chest discomfort. She was wheezing throughout. The patient was treated with steroids and bronchodilator therapy. She was reevaluated multiple times. She was found to have no abnormality on chest x-ray but was found to have a positive flu swab. The patient was found to have hypoxia as well. I discussed the patient's laboratory and radiographic studies with her. Given her vital signs I will [facility]. She may require further inpatient management to determine if the patient will require further inpatient management. Triage Nursing notes reviewed. Prior medical records reviewed Vital Signs: reviewed and remarkable for hypoxia. Differential diagnosis: Reactive airway disease, pneumonia, pneumothorax, COPD, CHF, infections, cardiac ischemia, pulmonary embolism, musculoskeletal, gastrointestinal, as well as other pathologies. ER treatment provided: See below Diagnostics interpreted by me: ECG: EKG was obtained in the emergency department. My interpretation is sinus rhythm at 75 bpm. Poor baseline was noted. Nonspecific ST segment depressions were noted in the inferior and low lateral leads. This was compared to a tracing from January 15, 2021. No significant changes were noted. Cardiac Monitoring: An order was placed for continuous cardiac monitoring. The monitor shows a rate of 70 bpm with sinus rhythm. Laboratory studies: As stated above and show below. Imaging studies: See below Consultation(s): I discussed this case with Vita who [facility]. Past Med/Surg History Medical History Asthma stable Basal cell carcinoma (BCC) of left forearm removed Bilateral malignant neoplasm of breast in female (03/21/20) Dec 2019 Calcific tendinitis, left lower leg Cervical radiculopathy Cervical stenosis of spine Depression GERD (gastroesophageal reflux disease) controlled Hiatal hernia History of COVID-05 Jan 2021 History of prediabetes diet controlled Hyperlipidemia Hypertension IT band syndrome Liver cyst just monitoring Lumbar spondylosis Neuropathy Nodular thyroid disease Nodule of lower lobe of left lung just monitoring Osteoarthritis Ovarian cyst Rosacea Sleep apnea cpap Surgical History History of bladder repair surgery History of carpal tunnel release bilat History of cataract surgery R/L History of colonoscopy History of eyelid surgery B/L UPPER EYELIDS History of partial mastectomy of both breasts History of total knee arthroplasty Left and right S/P tonsillectomy and adenoidectomy Status post bilateral knee replacements Status post Mohs surgery (01/14/22) Surgical Excision of Cutaneous Malignancy using Continuous Micoscopic Control (MOHS Micrographic Surgery) Dr. Amee Worthy at [facility] [place] teeth extracted Family History Family/Other Family history of diabetes mellitus Mother , age 86 heart disease No problems noted. Father , age 95 CVA No problems noted. Son No problems noted. Son No problems noted. 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 Feels Safe at Home: Yes Childhood Exposure to Second-Hand Smoke: No caffeine: Yes (2 cups per day diet cola once a week) during the past year weight has: other Dental Care, Regularly: Yes Physical Activity Frequency: Does not Exercise Seatbelt Use: always Sunscreen Use: Yes Assistive Devices: None Allergies Allergies Allergy/AdvReac Type Severity Reaction Status Date / Time tetanus toxoid, adsorbed Allergy Unknown SEVERE Verified 05/24/22 08:41 LOCAL EDEMA metformin AdvReac Unknown FLU LIKE Verified 05/24/22 08:41 SYMPTOMS Home Meds Home Medications Medication Instructions Recorded Confirmed atenolol 25 mg tablet (Tenormin) 25 mg PO QAM 08/18/18 05/24/22 atorvastatin 20 mg tablet (Lipitor) 20 mg PO HS 08/18/18 05/24/22 fluticasone propionate 50 1 sprays intranasal DAILY PRN 08/18/18 05/24/22 mcg/actuation nasal Congestion spray,suspension hydrochlorothiazide 25 mg tablet 25 mg PO QAM 08/18/18 05/24/22 losartan 25 mg tablet (Cozaar) 25 mg PO QAM 08/18/18 05/24/22 albuterol sulfate 90 mcg/actuation 2 puff inhalation QID PRN 06/18/19 05/24/22 aerosol inhaler (Ventolin HFA) Shortness Of Breath acetaminophen 650 mg 650 mg PO PRN PRN Pain 03/16/20 05/24/22 tablet,extended release (Tylenol Arthritis Pain) benzonatate 100 mg capsule 100 mg PO TID PRN Cough 03/16/20 05/24/22 (Tessalon Perles) fluticasone 250 mcg-salmeterol 50 1 puffs inhalation BID 03/16/20 05/24/22 mcg/dose blistr powdr for inhalation (Advair Diskus) ibuprofen 600 mg tablet 200 mg PO Q4H PRN Pain 03/16/20 05/24/22 omeprazole 40 mg capsule,delayed 40 mg PO QAM 03/16/20 05/24/22 release gabapentin 300 mg capsule 300 mg PO TID 07/31/20 05/24/22 anastrozole 1 mg tablet (Arimidex) 1 mg PO QAM 08/31/20 05/24/22 azelastine 205.5 mcg (0.15 %) 2 spray intranasal BID 12/18/20 05/24/22 nasal spray bumetanide 1 mg tablet 1 mg PO UD PRN Edema 12/18/20 05/24/22 cholecalciferol (vitamin D3) 25 1,000 unit PO QAM 12/18/20 05/24/22 mcg (1,000 unit) capsule (Vitamin D3) escitalopram oxalate 20 mg tablet 20 mg PO QAM 12/18/20 05/24/22 polysorbate 80-glycerin 1 %-1 % 1 drp ophthalmic (eye) QID PRN Dry 12/18/20 05/24/22 eye drops Eyes cetirizine 10 mg tablet (Zyrtec) 10 mg PO HS 05/24/22 05/24/22 Previous Rx's Medication Instructions Recorded fluocinonide 0.05 % topical cream 1 applic topical QID PRN itching 05/01/20 #60 grams tramadol 50 mg tablet 50 mg PO Q6H PRN pain #12 tabs 05/23/21 Results & Data (ED) Vital Signs Vital Signs - 24 hr 10/30/22 13:24 10/30/22 14:03 10/30/22 14:03 Temperature 36.5 C Temperature Source Temporal Artery Scan Pulse Rate 73 76 Pulse Rate [Finger] Pulse Rate from SpO2 Sensor Respiratory Rate 20 Respiratory Effort / Characteristics Non-Labored Spontaneous Respiratory Depth Normal Respiratory Pattern Blood Pressure 148/69 H Blood Pressure [Right Arm] Blood Pressure Mean 95 Blood Pressure Mean [Right Arm] Pulse Oximetry 91 93 93 Oxygen Delivery Method Room Air Room Air Room Air Oxygen Flow Rate Sepsis Recent Fever Within 48 Hours No Sepsis New/Unexplained Change in Mental Status No Sepsis Action Taken by Nursing No Action Required 10/30/22 14:04 10/30/22 15:00 10/30/22 15:15 Temperature Temperature Source Pulse Rate 82 Pulse Rate [Finger] 76 79 Pulse Rate from SpO2 Sensor Respiratory Rate 19 17 Respiratory Effort / Characteristics Non-Labored Spontaneous Respiratory Depth Normal Respiratory Pattern Regular Blood Pressure 135/63 Blood Pressure [Right Arm] 139/70 Blood Pressure Mean 87 Blood Pressure Mean [Right Arm] 93 Pulse Oximetry 93 92 87 L Oxygen Delivery Method Room Air Room Air Room Air Oxygen Flow Rate Sepsis Recent Fever Within 48 Hours Sepsis New/Unexplained Change in Mental Status Sepsis Action Taken by Nursing 10/30/22 15:20 10/30/22 15:31 10/30/22 16:00 Temperature Temperature Source Pulse Rate 79 80 78 Pulse Rate [Finger] Pulse Rate from SpO2 Sensor 79 82 Respiratory Rate 18 21 18 Respiratory Effort / Characteristics Respiratory Depth Respiratory Pattern Blood Pressure 141/62 H 129/82 Blood Pressure [Right Arm] Blood Pressure Mean 88 97 Blood Pressure Mean [Right Arm] Pulse Oximetry 96 95 96 Oxygen Delivery Method Nasal Cannula Nasal Cannula Nasal Cannula Oxygen Flow Rate 2 2 2 Sepsis Recent Fever Within 48 Hours Sepsis New/Unexplained Change in Mental Status Sepsis Action Taken by Skilled Nursing Medications Current Medication List: was personally reviewed by me Laboratory Data Attestation: I reviewed the patient's lab results. Result diagrams: 10/30/22 13:45 10/30/22 13:45 Lab Results 10/30/22 10/30/22 10/30/22 Range/Units 13:27 13:45 13:45 WBC 7.87 (4.8-10.8) K/ul RBC 4.56 (3.93-5.22) M/uL Hgb 13.4 (12.0-16.0) g/dl Hct 41.4 (34.1-44.9) % MCV 90.8 (80.0-100.0) fL MCH 29.4 (25.0-34.0) pg MCHC 32.4 (32.0-36.0) g/dL RDW Std Deviation 46.4 H (36.4-46.3) fL RDW Coeff of Timothy 13.9 (11.5-14.5) % Plt Count 250 (130-400) K/uL MPV 9.3 L (9.4-12.3) fL Immature Gran % (Auto) 0.5 % Neut % (Auto) 70.0 % Lymph % (Auto) 11.1 % [place] % (Auto) 17.9 % Eos % (Auto) 0.0 % Baso % (Auto) 0.5 % Neut # (Auto) 5.51 (1.4-6.5) K/uL Lymph # (Auto) 0.87 L (1.2-3.4) K/uL [place] # (Auto) 1.41 H (0.24-0.82) K/uL Eos # (Auto) 0.00 (0-0.50) K/uL Baso # (Auto) 0.04 (0-0.2) K/uL Immature Gran # (Auto) 0.04 H (0.00-0.02) K/uL PT 12.8 H (9.0-12.0) Seconds INR 1.2 H (0.9-1.1) APTT 26.9 (21.0-31.0) Seconds PTT Ratio 1.0 Sodium (136-145) mmol/L Potassium (3.5-5.1) mmol/L Chloride (98-107) mmol/L Carbon Dioxide (21-32) mmol/L Anion Gap (3-11) BUN (6-23) mg/dl Creatinine (0.6-1.2) mg/dl Est Cr Clr Drug Dosing ml/min Est GFR ( Amer) ml/min Est GFR (Non-Af Amer) ml/min BUN/Creatinine Ratio (10-20) Glucose (70-99(Fasting)) mg/dl Calcium (8.5-10.1) mg/dl Magnesium (1.7-2.4) mg/dl Total Bilirubin (0.2-1.0) mg/dl AST (13-39) U/L ALT (7-52) U/L Alkaline Phosphatase (34-104) U/L Total Protein (6.0-8.3) gm/dl Albumin (3.4-5.0) gm/dl Globulin (2.5-4.0) gm/dl Albumin/Globulin Ratio (0.9-2) SARS-CoV-2 (PCR) NEGATIVE (Negative) Influenza Type A (PCR) Positive A* (Neg) Influenza Type B (PCR) Negative (Neg) RSV (RT-PCR) Negative (Neg) 10/30/22 Range/Units 13:45 WBC (4.8-10.8) K/ul RBC (3.93-5.22) M/uL Hgb (12.0-16.0) g/dl Hct (34.1-44.9) % MCV (80.0-100.0) fL MCH (25.0-34.0) pg MCHC (32.0-36.0) g/dL RDW Std Deviation (36.4-46.3) fL RDW Coeff of Timothy (11.5-14.5) % Plt Count (130-400) K/uL MPV (9.4-12.3) fL Immature Gran % (Auto) % Neut % (Auto) % Lymph % (Auto) % [place] % (Auto) % Eos % (Auto) % Baso % (Auto) % Neut # (Auto) (1.4-6.5) K/uL Lymph # (Auto) (1.2-3.4) K/uL [place] # (Auto) (0.24-0.82) K/uL Eos # (Auto) (0-0.50) K/uL Baso # (Auto) (0-0.2) K/uL Immature Gran # (Auto) (0.00-0.02) K/uL PT (9.0-12.0) Seconds INR (0.9-1.1) APTT (21.0-31.0) Seconds PTT Ratio Sodium 139 (136-145) mmol/L Potassium 3.2 L (3.5-5.1) mmol/L Chloride 97 L (98-107) mmol/L Carbon Dioxide 34 H (21-32) mmol/L Anion Gap 8 (3-11) BUN 21 (6-23) mg/dl Creatinine 0.78 (0.6-1.2) mg/dl Est Cr Clr Drug Dosing 58.5 ml/min Est GFR ( Amer) 82.6 ml/min Est GFR (Non-Af Amer) 71.3 ml/min BUN/Creatinine Ratio 26.9 H (10-20) Glucose 115 H (70-99(Fasting)) mg/dl Calcium 9.8 (8.5-10.1) mg/dl Magnesium 1.8 (1.7-2.4) mg/dl Total Bilirubin 0.6 (0.2-1.0) mg/dl AST 22 (13-39) U/L ALT 18 (7-52) U/L Alkaline Phosphatase 70 (34-104) U/L Total Protein 7.1 (6.0-8.3) gm/dl Albumin 4.2 (3.4-5.0) gm/dl Globulin 2.9 (2.5-4.0) gm/dl Albumin/Globulin Ratio 1.4 (0.9-2) SARS-CoV-2 (PCR) (Negative) Influenza Type A (PCR) (Neg) Influenza Type B (PCR) (Neg) RSV (RT-PCR) (Neg) Administered Medications Discontinued Medications Albuterol (Albut/Ipratrop 3mg/0.5mg Neb 3 Ml Vial) 3 ml INH NOW STA Stop: 10/30/22 13:31 Last Admin: 10/30/22 13:41 Dose: 3 ml Documented By: SHITAL Albuterol (Albut/Ipratrop 3mg/0.5mg Neb 3 Ml Vial) 3 ml NEB NOW STA; Protocol Stop: 10/30/22 14:05 Last Admin: 10/30/22 14:08 Dose: 3 ml Documented By: GREGORIO Dexamethasone Sodium Phosphate (DexamethasonePf 10 Mg/Ml Vial) 10 mg IV NOW ONE Stop: 10/30/22 14:05 Last Admin: 10/30/22 14:08 Dose: 10 mg Documented By: GREGORIO Imaging Data Radiologist's Impression: Chest X-Ray 10/30/22 13:30 XR chest 1V portable HISTORY: 81 years-old Female SOB acute shortness of breath COMPARISON: Chest radiograph 12/20/2020 TECHNIQUE: AP view of the chest FINDINGS: Cardiac silhouette is enlarged. Atherosclerosis of the aorta. There is no pneumothorax, pleural effusion, airspace consolidation or overt pulmonary edema. Degenerative changes of the shoulders and spine. IMPRESSION: No acute process. ACT 112: Negative or not required by law. The above report was generated using voice recognition software. It may contain grammatical, syntax or spelling errors. Electronically signed by: Tim Lin M.D. 10/30/2022 2:57 PM Discharge Plan Visit Data Chief Complaint: Illness Stated Complaint: COUGH, ACHING, HEADACHE, CHILLS ED Provider: Savage aBss Discharge Problem: Acute bronchitis, Hypoxia, Influenza A Patient Disposition: Being Evaluated by Hospitalist Forms Stand Alone Forms: My [facility] Prescriptions Prescriptions: No Action atorvastatin [Lipitor] 20 mg tablet 20 mg PO HS atenolol [Tenormin] 25 mg tablet 25 mg PO QAM losartan [Cozaar] 25 mg tablet 25 mg PO QAM hydrochlorothiazide 25 mg tablet 25 mg PO QAM fluticasone propionate 50 mcg/actuation spray,suspension 1 sprays INTNAS DAILY PRN (Reason: Congestion) ibuprofen 600 mg tablet 200 mg PO Q4H PRN (Reason: Pain) anastrozole [Arimidex] 1 mg tablet 1 mg PO QAM cetirizine [Zyrtec] 10 mg tablet 10 mg PO HS benzonatate [Tessalon Perles] 100 mg capsule 100 mg PO TID PRN (Reason: Cough) acetaminophen [Tylenol Arthritis Pain] 650 mg tablet extended release 650 mg PO PRN PRN (Reason: Pain) omeprazole 40 mg capsule,delayed release(DR/EC) 40 mg PO QAM fluticasone propion-salmeterol [Advair Diskus] 250-50 mcg/dose blister with device 1 puffs INH BID fluocinonide 0.05 % cream 1 applic TOP QID PRN (Reason: itching) Qty: 60 3RF escitalopram oxalate 20 mg tablet 20 mg PO QAM bumetanide 1 mg Tablet 1 mg PO UD PRN (Reason: Edema) cholecalciferol (vitamin D3) [Vitamin D3] 25 mcg (1,000 unit) Capsule 1,000 unit PO QAM polysorbate 80-glycerin 1-1 % Drops 1 drp OPHTHALMIC (EYE) QID PRN (Reason: Dry Eyes) azelastine 0.15 % (205.5 mcg) [place],Non-Aerosol 2 spray INTRANASAL BID albuterol sulfate [Ventolin HFA] 90 mcg/actuation Hfa Aerosol Inhaler 2 puff INHALATION QID PRN (Reason: Shortness Of Breath) gabapentin 300 mg capsule 300 mg PO TID tramadol 50 mg tablet 50 mg PO Q6H PRN (Reason: pain) Qty: 12 0RF Referrals Referrals: Chacha Cade MD [Primary Care Provider] - : Acute bronchitis Qualifiers: Bronchitis organism: unspecified organism Qualified Code(s): J20.9 - Acute bronchitis, unspecified
[2022-10-30 14:15] LABS: INR 1.2 (0.9-1.1); Partial Thromboplastin Time 26.9 Seconds (21.0-31.0); Prothrombin Time 12.8 Seconds (9.0-12.0)
[2022-10-30 14:23] LABS: Albumin Globulin Ratio 1.4 (0.9-2); Albumin Level 4.2 gm/dl (3.4-5.0); BUN Creatinine Ratio 26.9 (10-20); Bilirubin,Total 0.6 mg/dl (0.2-1.0); Calcium 9.8 mg/dl (8.5-10.1); Creatinine Clr Calc Pharmacy 58.5 ml/min; Est GFR (African American) 82.6 ml/min; Est GFR (Non-African American) 71.3 ml/min; Globulin 2.9 gm/dl (2.5-4.0); Magnesium 1.8 mg/dl (1.7-2.4); Potassium 3.2 mmol/L (3.5-5.1); Total Protein 7.1 gm/dl (6.0-8.3)
[2022-10-30 14:44] LABS: Influenza B virus by PCR Negative (Neg); RSV by PCR Negative (Neg); SARS CoV2 RNA(COVID-19) Ceph NEGATIVE (Negative)
--- NOTE | 2022-10-30 14:45 | Electrocardiogram Report ---
Test Reason : Blood Pressure : / mmHG Vent. Rate : 075 BPM Atrial Rate : 300 BPM P-R Int : 000 ms QRS Dur : 096 ms QT Int : 358 ms P-R-T Axes : 000 -04 016 degrees QTc Int : 399 ms Poor data quality, interpretation may be adversely affected Sinus rhythm Diffuse Minor Nonspecific ST abnormality Abnormal ECG When compared with ECG of 18-DEC-2020 12:50, No significant change Confirmed by Mike Rodriguez ([id number]) on 10/30/2022 2:45:16 PM Referred By: REFERRED SELF Confirmed By:Mike Rodriguez
[2022-10-30 14:49] LABS: Influenza A virus by PCR Positive (Neg)
--- NOTE | 2022-10-30 14:59 | XRay Report ---
XR chest 1V portable HISTORY: 81 years-old Female SOB acute shortness of breath COMPARISON: Chest radiograph 12/20/2020 TECHNIQUE: AP view of the chest FINDINGS: Cardiac silhouette is enlarged. Atherosclerosis of the aorta. There is no pneumothorax, pleural effus ion, airspace consolidation or overt pulmonary edema. Degenerative changes of the shoulders and spine . IMPRESSION: No acute process. ACT 112: Negative or not required by law. The above report was generated using voice recognition software. It may contain grammatical, syntax o r spelling errors. Electronically signed by: Tim Lin M.D. 10/30/2022 2:57 PM
[2022-10-30] MEDS ORDERED: OSELTAMIVIR PHOSPHATE 75 MG CAP PO STA (17:14)
[2022-10-30] MEDS ORDERED: POTASSIUM CHLORIDE CRTAB 20 MEQ TABCR PO STA (17:14)
--- NOTE | 2022-10-30 17:24 | History & Physical Report ---
Date of Service October 30, 2022 Assessment & Plan (1) Influenza A: (2) Asthma exacerbation: (3) Hypoxia: Plan: Patient is 81 y/o F with PMH asthma, DM II, HTN, dyslipidemia, CLAUDINE, depression, breast cancer s/p partial mastectomy and radiation presented to ER with c/o cough, wheezing, chills, myalgias x 2 days. In ER noted to be hypoxic on room air at 87% increased to 96% on 2L via NC No leukocytosis. +influenza A PCR CXR: no acute infiltrate In ER given 2 nebs, dexamethasone 10mg IV with continued wheezing but reported decrease cough Supplemental oxygen as needed, wean when able Duonebs Solumedrol 40mg Q8H Tamiflu Cough syrup Continue home inhalers Incentive spirometer CBC, BMP in am (4) Hypokalemia: Plan: K: 3.2. Ma.8 Replace and monitor (5) Diabetes mellitus, type II: Plan: A1c: 6.8 on 08/16/22 Diet controlled. Not on medication Basal bolus insulin per protocol (6) Hypertension: Plan: Continue losartan, atenolol Hold HCTZ and reevaluate tomorrow (7) Bilateral malignant neoplasm of breast in female: Plan: S/P partial mastectomy, radiation Continue anastrozole (8) Sleep apnea: Plan: CPAP HS (9) Depression: Plan: Continue escitalopram DVT Prophylaxis Lovenox SQ Full Code as per discussion with pt Follows with Dr Cade for routine care Pt was seen and care coordinated with Dr Gan. See addendum History of Present Illness Chief Complaint: cough Primary Care Provider: Chacha Cade MD Patient is 81 y/o F with PMH asthma, DM II, HTN, dyslipidemia, CLAUDINE, depression, breast cancer s/p partial mastectomy and radiation presented to ER with c/o cough, wheezing x 2 days. Patient states 3 days ago started with some fatigue symptoms. 2 days ago started with clear productive cough, SOB, JENNINGS, myalgias, chills, sweats, nasal congestion. She did not check temperature. Has been having wheezing and used albuterol inhaler twice with limited relief. Reports coughing so much that her ribs are sore. Had one episode of post tussive emesis. No known ill contacts. Had influenza vaccine this season. Denies diarrhea, constipation, dizziness, syncope, vision changes, neck pain, orthopnea, palpitations, hemoptysis, sore throat, choking, otalgia, abdominal pain, paresthesias, weakness, extremity weakness, extremity edema, rashes, urinary symptoms. Allergies Allergy/AdvReac Type Severity Reaction Status Date / Time tetanus toxoid, adsorbed Allergy Intermediate SEVERE Verified 10/30/22 17:43 LOCAL EDEMA/FLU-LIKE SYMPTOMS metformin AdvReac Intermediate NAUSEA/VOMI Verified 10/30/22 17:43 TING Home Medications Medication Instructions Recorded Confirmed Type atenolol 25 mg tablet (Tenormin) 25 mg PO QAM 08/18/18 10/30/22 History atorvastatin 20 mg tablet (Lipitor) 20 mg PO HS 08/18/18 10/30/22 History hydrochlorothiazide 25 mg tablet 25 mg PO QAM 08/18/18 10/30/22 History losartan 25 mg tablet (Cozaar) 25 mg PO QAM 08/18/18 10/30/22 History albuterol sulfate 90 mcg/actuation 2 puff inhalation Q4H PRN 06/18/19 10/30/22 History aerosol inhaler (Ventolin HFA) Shortness Of Breath acetaminophen 650 mg 650 mg PO DIRECTED PRN Pain 03/16/20 10/30/22 History tablet,extended release (Tylenol Arthritis Pain) fluticasone 250 mcg-salmeterol 50 1 puffs inhalation BID 03/16/20 10/30/22 History mcg/dose blistr powdr for inhalation (Advair Diskus) omeprazole 40 mg capsule,delayed 40 mg PO QAM 03/16/20 10/30/22 History release gabapentin 300 mg capsule 300 mg PO TID 07/31/20 10/30/22 History anastrozole 1 mg tablet (Arimidex) 1 mg PO QAM 08/31/20 10/30/22 History azelastine 205.5 mcg (0.15 %) 2 spray intranasal BID 12/18/20 10/30/22 History nasal spray bumetanide 1 mg tablet 1 mg PO UD PRN Edema 12/18/20 10/30/22 History cholecalciferol (vitamin D3) 25 1,000 unit PO QAM 12/18/20 10/30/22 History mcg (1,000 unit) capsule (Vitamin D3) escitalopram oxalate 20 mg tablet 20 mg PO QAM 12/18/20 10/30/22 History cetirizine 10 mg tablet (Zyrtec) 10 mg PO HS 05/24/22 10/30/22 History alcaftadine 0.25 % eye drops 1 drp ophthalmic (eye) DAILY PRN 10/30/22 10/30/22 History (Lastacaft) NEEDED calcium carbonate 500 mg-vitamin 1 tab PO BID 10/30/22 10/30/22 History D3 3.125 mcg (125 unit) tablet ibuprofen 200 mg tablet 200 mg PO Q4H PRN Pain 10/30/22 10/30/22 History ipratropium bromide 21 mcg (0.03 2 spray intranasal BID PRN 10/30/22 10/30/22 History %) nasal spray CONGESTION/POSTNASAL DRIP omega [id number]-fish oil 1,200 mg 1 cap PO DAILY 10/30/22 10/30/22 History (144 mg-216 mg) capsule (Fish Oil) propylene glycol 0.6 % eye drops 1 drp ophthalmic (eye) DIRECTED 10/30/22 10/30/22 History (Systane Complete) PRN Dry Eyes vitamin B complex 1 tab PO DAILY 10/30/22 10/30/22 History Past Med/Surg History Medical History Asthma stable Asthma exacerbation Basal cell carcinoma (BCC) of left forearm removed Bilateral malignant neoplasm of breast in female (03/21/20) Dec 2019 Calcific tendinitis, left lower leg Cervical radiculopathy Cervical stenosis of spine Depression Diabetes mellitus, type II GERD (gastroesophageal reflux disease) controlled Hiatal hernia History of COVID-05 Jan 2021 History of prediabetes diet controlled Hyperlipidemia Hypertension IT band syndrome Liver cyst just monitoring Lumbar spondylosis Neuropathy Nodular thyroid disease Nodule of lower lobe of left lung just monitoring Osteoarthritis Ovarian cyst Rosacea Sleep apnea cpap Surgical History History of bladder repair surgery History of carpal tunnel release bilat History of cataract surgery R/L History of colonoscopy History of eyelid surgery B/L UPPER EYELIDS History of partial mastectomy of both breasts History of total knee arthroplasty Left and right S/P tonsillectomy and adenoidectomy Status post bilateral knee replacements Status post Mohs surgery (01/14/22) Surgical Excision of Cutaneous Malignancy using Continuous Micoscopic Control (MOHS Micrographic Surgery) Dr. Amee Worthy at [facility] [place] teeth extracted Family History Family/Other Family history of diabetes mellitus Mother , age 86 heart disease No problems noted. Father , age 95 CVA No problems noted. Son No problems noted. Son No problems noted. 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 Other Information That Helps Us Care for You: No Feels Safe at Home: Yes Safety Concerns: Feels Safe At This Time Childhood Exposure to Second-Hand Smoke: No caffeine: Yes (2 cups per day diet cola once a week) during the past year weight has: other Dental Care, Regularly: Yes Physical Activity Frequency: Does not Exercise Seatbelt Use: always Sunscreen Use: Yes Assistive Devices: Cane Review of Systems Review of Systems: All systems reviewed & are unremarkable except as noted in HPI & below Physical Exam Physical Exam: General: no acute distress on current 2L oxygen, obese Head: normocephalic, atraumatic Eyes: conjunctiva non-injected, anicteric ENT: normal inspection external ears, nose, +boggy turbinates bilaterally, mucous membranes moist Neck: supple, trachea midline Lungs: No respiratory distress on 2L via NC, +diffuse wheezing throughout, no rales or rhonchi CV: RRR, no murmur, no pretibial edema Abd: normal BS, soft, non-tender Ext: no cyanosis, no calf tenderness Neuro: A&O x 3, no focal deficits noted, normal affect Skin: warm, dry Results & Data Results & Data ([facility]) Vital Signs (Past 12 Hours) Vital Signs Temp Pulse Pulse Resp BP BP Pulse Ox 10/30/22 17:06 78 21 114/77 94 10/30/22 16:30 76 17 132/75 95 10/30/22 16:00 78 18 129/82 96 10/30/22 15:31 80 21 141/62 H 95 10/30/22 15:20 79 18 96 10/30/22 15:15 79 87 L 10/30/22 15:00 82 17 135/63 92 10/30/22 14:04 76 19 139/70 93 10/30/22 14:03 76 93 10/30/22 14:03 93 10/30/22 13:24 36.5 C 73 20 148/69 H 91 O2 Del Method O2 Flow Rate 10/30/22 17:06 Nasal Cannula 2 10/30/22 16:30 Nasal Cannula 2 10/30/22 16:00 Nasal Cannula 2 10/30/22 15:31 Nasal Cannula 2 10/30/22 15:20 Nasal Cannula 2 10/30/22 15:15 Room Air 10/30/22 15:00 Room Air 10/30/22 14:04 Room Air 10/30/22 14:03 Room Air 10/30/22 14:03 Room Air 10/30/22 13:24 Room Air Laboratory Results Short CBC 10/30/22 Range/Units 13:45 WBC 7.87 (4.8-10.8) K/ul Hgb 13.4 (12.0-16.0) g/dl Hct 41.4 (34.1-44.9) % Plt Count 250 (130-400) K/uL BMP 10/30/22 13:45 Sodium 139 Potassium 3.2 L Chloride 97 L Carbon Dioxide 34 H BUN 21 Creatinine 0.78 Glucose 115 H Calcium 9.8 Liver Function 10/30/22 Range/Units 13:45 Total Bilirubin 0.6 (0.2-1.0) mg/dl AST 22 (13-39) U/L ALT 18 (7-52) U/L Alkaline Phosphatase 70 (34-104) U/L Albumin 4.2 (3.4-5.0) gm/dl Diagnostic Findings Chest X-Ray 10/30/22 13:30 XR chest 1V portable HISTORY: 81 years-old Female SOB acute shortness of breath COMPARISON: Chest radiograph 12/20/2020 TECHNIQUE: AP view of the chest FINDINGS: Cardiac silhouette is enlarged. Atherosclerosis of the aorta. There is no pneumothorax, pleural effusion, airspace consolidation or overt pulmonary edema. Degenerative changes of the shoulders and spine. IMPRESSION: No acute process. ACT 112: Negative or not required by law. The above report was generated using voice recognition software. It may contain grammatical, syntax or spelling errors. Electronically signed by: Tim Lin M.D. 10/30/2022 2:57 PM Supervising Physician Co-Signing Physician Notes I have seen and examined the patient and have discussed the case with the provider above. I agree with the assessment and plan as stated with the following exceptions. 81-year-old female with history of asthma presents with hypoxia respiratory symptoms secondary to flu including significant wheezing. She is feeling better since her treatment in the ER which included steroids and nebulized bronchodilators. On exam she is obese, and in no acute distress. She is 93% with 2 L/min nasal cannula in place. She is not demonstrating any respiratory distress or conversational dyspnea. Lung exam reveals diffuse severe wheezing all throughout with rales present at the bases. Cardiac exam is within normal limits with S1-S2 heard and no murmurs. She has no evidence of edema. Abdomen is soft nontender nondistended. She has no gross focal neuromuscular deficits. Skin is warm and dry. On initial work-up in the ER a CBC is within normal limits, INR is 1.2. Potassium slightly low at 3.2 with patient reporting a low appetite with ongoing malaise from flu. Renal function is normal. BUN to creatinine ratio is 27 indicating possible dehydration. Magnesium is 1.8, liver function is normal. She is flu a positive. Chest x-ray reveals no acute process. Overall this is a 81-year-old female with hypoxia and asthma exacerbation secondary to influenza A. Agree with treatment with Tamiflu given recent onset of symptoms. Replacement of potassium and advancement of diet as tolerated. Continue with steroid therapy and nebulized bronchodilators. Continue supportive care. Disposition back home once she has a resolution of hypoxia. DO Malik
[2022-10-30] MEDS ORDERED: POTASSIUM CHLORIDE CRTAB 20 MEQ TABCR PO ONE (21:14)
[2022-10-30] MEDS ORDERED: GLUCOSE 40% GEL 15 GM TUBE PO PRN (21:14)
[2022-10-30] MEDS ORDERED: ACETAMINOPHEN 325 MG TAB PO PRN (21:14)
[2022-10-30] MEDS ORDERED: SODIUM CHLORIDE 0.9% 1000ML 1,000 ML IV SCH (21:14)
[2022-10-30] MEDS ORDERED: POLYETHYLENE (MIRALAX) 17 GM PACK PO PRN (21:14)
[2022-10-30] MEDS ORDERED: GLUCAGON FOR INJ 1 MG VIAL SQ PRN (21:14)
[2022-10-30] MEDS ORDERED: DEXTROSE 50% 50 ML SYRINGE IV PRN (21:14)
[2022-10-30] MEDS ORDERED: CARBOHYDRATES FOR HYPOGLYCEMIA PO PRN (21:14)
[2022-10-30] MEDS ORDERED: ONDANSETRON INJ 2 MG/ML 2 ML VIAL IV PRN (21:14)
[2022-10-30] MEDS ORDERED: GLUCOSE 10 TAB/TUBE PO PRN (21:14)
[2022-10-30] MEDS: INSULIN ASPART PER UNIT SC SCH (21:39)
[2022-10-30] MEDS ORDERED: ARTIFICIAL TEARS OP PRN (21:41)
[2022-10-30] MEDS ORDERED: LANTUS PER UNIT CHARGE SQ SCH (21:45)
[2022-10-30] MEDS: ALBUT/IPRATROP 3MG/0.5MG NEB 3 ML VIAL NEB SCH (22:02)
[2022-10-30] MEDS: ENOXAPARIN INJ 40 MG/0.4 ML SYR SQ SCH (22:09)
[2022-10-30] MEDS: guaiFENesin/CODEINE 100MG/10MG 5ML UDC PO SCH (22:11)
[2022-10-30] MEDS: FLUTICASONE PROPIONATE NA SPR 16 GM BTL SCH (22:11)
[2022-10-30] MEDS: CALCIUM 600MG + VIT D 400 IU TAB PO SCH (22:11)
[2022-10-30] MEDS: ATORVASTATIN 20 MG TAB PO SCH (22:12)
[2022-10-30] MEDS: CETIRIZINE HCL 10 MG TABLET PO SCH (22:12)
[2022-10-30] MEDS: GABAPENTIN 300 MG CAP PO SCH (22:12)
[2022-10-31] MEDS: methylPREDNISolone 40 MG in SYRINGE 0 ML IV SCH ×3 (05:56→20:59)
[2022-10-31] MEDS: guaiFENesin/CODEINE 100MG/10MG 5ML UDC PO SCH ×2 (05:56→13:19)
[2022-10-31] MEDS: ALBUT/IPRATROP 3MG/0.5MG NEB 3 ML VIAL NEB SCH ×4 (07:18→20:10)
[2022-10-31] MEDS ORDERED: PHARMACY GLYCEMIC MGMT CONSULT PRN (08:12)
[2022-10-31 09:04] LABS: Hematocrit (blood only) 38.3 % (34.1-44.9); Hemoglobin 12.4 g/dl (12.0-16.0); Mean Corpuscular Hemoglobin 29.6 pg (25.0-34.0); Mean Corpuscular Hgb Conc 32.4 g/dL (32.0-36.0); Mean Corpuscular Volume 91.4 fL (80.0-100.0); Mean Platelet Volume 9.4 fL (9.4-12.3); Platelet Count 238 K/uL (130-400); Red Blood Count 4.19 M/uL (3.93-5.22); White Blood Count 4.91 K/ul (4.8-10.8)
[2022-10-31 09:35] LABS: BUN Creatinine Ratio 40.6 (10-20); Calcium 9.2 mg/dl (8.5-10.1); Creatinine Clr Calc Pharmacy 71.1 ml/min; Est GFR (Non-African American) 83.7 ml/min
[2022-10-31] MEDS: OSELTAMIVIR PHOSPHATE SUSP 30 MG/5 ML UDP PO SCH ×2 (09:40→20:52)
[2022-10-31] MEDS: FLUTICASONE/VILANTEROL 100/25MCG 14 PUFFS/INHALER INH SCH (09:40)
[2022-10-31] MEDS: CHOLECALCIFEROL 1,000 UNITS 25 MCG TAB PO SCH (09:41)
[2022-10-31] MEDS: CALCIUM 600MG + VIT D 400 IU TAB PO SCH ×2 (09:41→20:54)
[2022-10-31] MEDS: ANASTROZOLE 1 MG TAB PO SCH (09:41)
[2022-10-31] MEDS: ATENOLOL 25 MG TABLET PO SCH (09:41)
[2022-10-31] MEDS: LOSARTAN POTASSIUM 25 MG TAB PO SCH (09:41)
[2022-10-31] MEDS: ESCITALOPRAM OXALATE 20 MG TAB PO SCH (09:42)
[2022-10-31] MEDS: OMEGA-3 (PURIFIED FISH OIL) 1 GM CAP PO SCH (09:42)
[2022-10-31] MEDS: GABAPENTIN 300 MG CAP PO SCH ×3 (09:42→20:53)
[2022-10-31] MEDS: FLUTICASONE PROPIONATE NA SPR 16 GM BTL SCH (09:44)
[2022-10-31] MEDS: PANTOprazole 40 MG TAB PO SCH (09:46)
[2022-10-31] MEDS: INSULIN ASPART PER UNIT SC SCH ×4 (09:47→20:52)
[2022-10-31] MEDS: LANTUS PER UNIT CHARGE SQ SCH ×2 (09:49→20:51)
--- NOTE | 2022-10-31 10:10 | Pharmacy Report ---
Pharmacy Glycemic Short Note 2 - Date of Service October 31, 2022 - Glycemic Short BSG Results (Last 24 hours): 10/30/22 10/30/22 10/31/22 13:45 21:19 08:37 Glucose 115 H 147 H POC Glucose 174 H 10/31/22 08:42 Glucose POC Glucose 150 H OUTPATIENT ANTIDIABETIC REGIMEN: * n/a HbA1C: ____ ASSESSMENT: * Patient is a type 2 diabetic on no home diabetes medications admitted with an asthma exacerbation and (+) influenza A. Pharmacy consulted to assist with glycemic management. * Tolerating diet. Dex 10mg IV X 1 yesterday and now on methylprednisolone 40mg IV q8h. * BSGs 174 last diana and 150mg/dL this AM. Received 8 units of basal and 2 units of bolus insulin last evening. * Continue basal/bolus insulin. Will titrate Lantus this AM to 10 units BID given continuation of steroids. Novolog parameters tightened to 25/8. PLAN FOR INPATIENT GLYCEMIC CONTROL: * Hold outpatient oral diabetes medications * Basal insulin * Lantus 10 units SQ BID * Bolus insulin * NovoLog per scale ACHS or Q6hrs while NPO * Goal Range: Low 110 mg/dL - High 140 mg/dL * Correction Factor: 25 mg/dL/unit * Nutritional / Prandial insulin per carb ratio of 1 unit per 8 grams CHO consumed
[2022-10-31] MEDS: DOXYCYCLINE HYCLATE 100 MG CAP PO SCH ×2 (13:10→20:54)
--- NOTE | 2022-10-31 14:00 | Hospitalist Progress Note ---
Date of Service October 31, 2022 Assessment & Plan (1) Influenza A: (2) Asthma exacerbation: (3) Hypoxia: Plan: Per Dr. Gan's notes with addendum: Patient is 81 y/o F with PMH asthma, DM II, HTN, dyslipidemia, CLAUDINE, depression, breast cancer s/p partial mastectomy and radiation presented to ER with c/o cough, wheezing, chills, myalgias x 2 days. In ER noted to be hypoxic on room air at 87% increased to 96% on 2L via NC No leukocytosis. +influenza A PCR CXR: no acute infiltrate 11/03 Still on 2 L But improving slightly Add doxycycline 1 mg twice daily for possible bacterial component of acute bronchitis Continue nebs, Solu-Medrol, Tamiflu (4) Hypokalemia: Plan: Potassium 4.0 (5) Diabetes mellitus, type II: Plan: A1c: 6.8 on 08/16/22 Diet controlled. Not on medication Basal bolus insulin per protocol BSG 166 (6) Hypertension: Plan: Continue losartan, atenolol Hold HCTZ (7) Bilateral malignant neoplasm of breast in female: Plan: S/P partial mastectomy, radiation Continue anastrozole (8) Sleep apnea: Plan: CPAP HS (9) Depression: Plan: Continue escitalopram DVT Prophylaxis Lovenox SQ Full Code Admission and Anticipated Discharge Date Admission Date: October 30, 2022 Subjective Follow-up for perineal abscess, etc. Resting in bed, comfortable, not in distress States he feels fine overall Denies pain over the surgical area No shortness of breath, chest pain, dizziness, nausea vomiting No fevers or chills No other symptoms Review of Systems Review of Systems: all noted and negative except for above Physical Exam Physical Exam: General- oriented x 3, not in distress, speaks in sentences with no effort or accessory muscle use Eyes- anicteric Neck- no JVD Lungs- clear breath sounds bilaterally, no rales/wheezes Heart- normal rate, regular rhythm; no murmurs Abdomen- normal bowel sounds, nondistended, soft, nontender Extremities- no pretibial edema, no calf tenderness Neuro- alert, oriented x 3; no gross focal neurologic deficits Skin- warm & dry Results & Data Results & Data ([facility]) Vital Signs (Past 12 Hours) Vital Signs Temp Pulse Resp BP Pulse Ox O2 Del Method O2 Flow Rate 10/31/22 11:18 60 18 97 Nasal Cannula 2 10/31/22 07:45 37.0 C 66 18 136/70 95 Nasal Cannula 2 10/31/22 07:20 56 L 18 97 Nasal Cannula 2 all noted and reviewed including below
[2022-10-31] MEDS: ENOXAPARIN INJ 40 MG/0.4 ML SYR SQ SCH (20:53)
[2022-10-31] MEDS: CETIRIZINE HCL 10 MG TABLET PO SCH (20:53)
[2022-10-31] MEDS: ATORVASTATIN 20 MG TAB PO SCH (20:54)
[2022-11-01] MEDS: guaiFENesin/CODEINE 100MG/10MG 5ML UDC PO PRN ×2 (01:33→12:07)
[2022-11-01] MEDS: methylPREDNISolone 40 MG in SYRINGE 0 ML IV SCH ×2 (05:34→18:28)
[2022-11-01] MEDS: ALBUT/IPRATROP 3MG/0.5MG NEB 3 ML VIAL NEB SCH ×4 (07:14→20:14)
[2022-11-01 09:09] LABS: Estimated Average Glucose 154 mg/dl
[2022-11-01] MEDS: LANTUS PER UNIT CHARGE SQ SCH (09:54)
[2022-11-01] MEDS: INSULIN ASPART PER UNIT SC SCH ×4 (09:54→22:36)
[2022-11-01] MEDS: ANASTROZOLE 1 MG TAB PO SCH (09:57)
[2022-11-01] MEDS: DOXYCYCLINE HYCLATE 100 MG CAP PO SCH ×2 (09:58→20:33)
[2022-11-01] MEDS: ATENOLOL 25 MG TABLET PO SCH (09:58)
[2022-11-01] MEDS: CALCIUM 600MG + VIT D 400 IU TAB PO SCH ×2 (09:58→20:33)
[2022-11-01] MEDS: CHOLECALCIFEROL 1,000 UNITS 25 MCG TAB PO SCH (09:58)
[2022-11-01] MEDS: ESCITALOPRAM OXALATE 20 MG TAB PO SCH (10:02)
[2022-11-01] MEDS: OMEGA-3 (PURIFIED FISH OIL) 1 GM CAP PO SCH (10:03)
[2022-11-01] MEDS: FLUTICASONE/VILANTEROL 100/25MCG 14 PUFFS/INHALER INH SCH (10:03)
[2022-11-01] MEDS: FLUTICASONE PROPIONATE NA SPR 16 GM BTL SCH (10:03)
[2022-11-01] MEDS: LOSARTAN POTASSIUM 25 MG TAB PO SCH (10:04)
[2022-11-01] MEDS: GABAPENTIN 300 MG CAP PO SCH ×3 (10:04→20:33)
[2022-11-01] MEDS: PANTOprazole 40 MG TAB PO SCH (10:05)
[2022-11-01] MEDS: OSELTAMIVIR PHOSPHATE SUSP 30 MG/5 ML UDP PO SCH ×2 (12:04→21:19)
--- NOTE | 2022-11-01 13:42 | Pharmacy Report ---
Pharmacy Glycemic Short Note 2 - Date of Service November 01, 2022 - Glycemic Short BSG Results (Last 24 hours): 10/31/22 10/31/22 11/01/22 17:44 20:19 08:23 POC Glucose 129 H 174 H 132 H OUTPATIENT ANTIDIABETIC REGIMEN: * n/a HbA1C: 7.0% 11/01/22 ASSESSMENT: 11/01: * Patient was well controlled over the past 24 hours: [phone] mg/dL with 20 units of basal, 26 units of basal * Continues on methylprednisolone 40 mg q8H. * Fasting today 132 mg/dL- will continue current lantus dosing * Continue current novolog parameters 10/31 * Patient is a type 2 diabetic on no home diabetes medications admitted with an asthma exacerbation and (+) influenza A. Pharmacy consulted to assist with glycemic management. * Tolerating diet. Dex 10mg IV X 1 yesterday and now on methylprednisolone 40mg IV q8h. * BSGs 174 last diana and 150mg/dL this AM. Received 8 units of basal and 2 units of bolus insulin last evening. * Continue basal/bolus insulin. Will titrate Lantus this AM to 10 units BID given continuation of steroids. Novolog parameters tightened to 25/8. PLAN FOR INPATIENT GLYCEMIC CONTROL: * Hold outpatient oral diabetes medications * Basal insulin * Lantus 10 units SQ BID * Bolus insulin * NovoLog per scale ACHS or Q6hrs while NPO * Goal Range: Low 110 mg/dL - High 140 mg/dL * Correction Factor: 25 mg/dL/unit * Nutritional / Prandial insulin per carb ratio of 1 unit per 8 grams CHO consumed
--- NOTE | 2022-11-01 17:30 | Hospitalist Progress Note ---
Date of Service November 01, 2022 Assessment & Plan (1) Influenza A: (2) Asthma exacerbation: (3) Hypoxia: Plan: Per Dr. Gan's notes with addendum: Patient is 81 y/o F with PMH asthma, DM II, HTN, dyslipidemia, CLAUDINE, depression, breast cancer s/p partial mastectomy and radiation presented to ER with c/o cough, wheezing, chills, myalgias x 2 days. In ER noted to be hypoxic on room air at 87% increased to 96% on 2L via NC No leukocytosis. +influenza A PCR CXR: no acute infiltrate 11/01 Clinically improving, weaned off oxygen Continue nebs, position Solu-Medrol to every 12, prednisone 40 mg p.o. tomorrow Continue doxycycline, Tamiflu, nebs (4) Hypokalemia: Plan: Potassium 4.0 (5) Diabetes mellitus, type II: Plan: A1c: 6.8 on 08/16/22 Diet controlled. Not on medication Basal bolus insulin per protocol BSG 105 (6) Hypertension: Plan: Continue losartan, atenolol Hold HCTZ (7) Bilateral malignant neoplasm of breast in female: Plan: S/P partial mastectomy, radiation Continue anastrozole (8) Sleep apnea: Plan: CPAP HS (9) Depression: Plan: Continue escitalopram DVT Prophylaxis Lovenox SQ Full Code Admission and Anticipated Discharge Date Admission Date: October 30, 2022 Subjective Follow-up for acute hypoxic respiratory failure, asthma exacerbation, influenza A infection, etc. Seen resting in bed, on room air, comfortable, not in distress States she feels improved compared to yesterday Has minimal cough, no shortness of breath with exertion, has some mild white sputum No chest pain, dizziness, palpitations No fevers or chills No other symptoms Review of Systems Review of Systems: all noted and negative except for above Physical Exam Physical Exam: General- oriented x 3, not in distress, speaks in sentences with no effort or accessory muscle use Eyes- anicteric Neck- no JVD Lungs-faint wheezing bilaterally, no crackles Heart- normal rate, regular rhythm; no murmurs Abdomen- normal bowel sounds, nondistended, soft, no tenderness Extremities- no pretibial edema, no calf tenderness Neuro- alert, oriented x 3; no gross focal neurologic deficits Skin- warm & dry Results & Data Results & Data ([facility]) Vital Signs (Past 12 Hours) Vital Signs Temp Pulse Resp BP Pulse Ox O2 Del Method O2 Flow Rate 11/01/22 15:10 36.9 C 64 20 136/71 93 Room Air 11/01/22 14:38 88 16 95 Room Air 11/01/22 11:00 64 18 98 Nasal Cannula 1 11/01/22 07:50 Nasal Cannula 1 11/01/22 07:26 36.3 C L 60 20 126/65 97 Nasal Cannula 1 11/01/22 07:16 59 L 18 97 Nasal Cannula 1 all noted and reviewed including below
[2022-11-01] MEDS: CETIRIZINE HCL 10 MG TABLET PO SCH (20:33)
[2022-11-01] MEDS: ATORVASTATIN 20 MG TAB PO SCH (20:33)
[2022-11-01] MEDS: ENOXAPARIN INJ 40 MG/0.4 ML SYR SQ SCH (20:34)
[2022-11-02] MEDS: ALBUT/IPRATROP 3MG/0.5MG NEB 3 ML VIAL NEB SCH ×4 (07:32→19:44)
[2022-11-02] MEDS ORDERED: predniSONE 20 MG TAB PO SCH (09:00)
[2022-11-02] MEDS: FLUTICASONE/VILANTEROL 100/25MCG 14 PUFFS/INHALER INH SCH (10:06)
[2022-11-02] MEDS: DOXYCYCLINE HYCLATE 100 MG CAP PO SCH ×2 (10:09→20:12)
[2022-11-02] MEDS: INSULIN ASPART PER UNIT SC SCH ×4 (10:09→22:13)
[2022-11-02] MEDS: CALCIUM 600MG + VIT D 400 IU TAB PO SCH ×2 (10:10→20:12)
[2022-11-02] MEDS: ATENOLOL 25 MG TABLET PO SCH (10:10)
[2022-11-02] MEDS: OMEGA-3 (PURIFIED FISH OIL) 1 GM CAP PO SCH (10:10)
[2022-11-02] MEDS: LOSARTAN POTASSIUM 25 MG TAB PO SCH (10:10)
[2022-11-02] MEDS: GABAPENTIN 300 MG CAP PO SCH ×3 (10:10→20:12)
[2022-11-02] MEDS: PANTOprazole 40 MG TAB PO SCH (10:10)
[2022-11-02] MEDS: ESCITALOPRAM OXALATE 20 MG TAB PO SCH (10:10)
[2022-11-02] MEDS: ANASTROZOLE 1 MG TAB PO SCH (10:10)
[2022-11-02] MEDS: CHOLECALCIFEROL 1,000 UNITS 25 MCG TAB PO SCH (10:10)
[2022-11-02] MEDS: FLUTICASONE PROPIONATE NA SPR 16 GM BTL SCH (10:11)
--- NOTE | 2022-11-02 11:55 | XRay Report ---
TWO VIEW CHEST CLINICAL HISTORY: Influenza. Asthma exacerbation. FINDINGS: PA and lateral chest radiographs are compared to study dated 10/30/2022. The heart is enlar ged and noting atherosclerotic calcification of the thoracic aorta. The pulmonary vasculature is nonc ongested. Chronic interstitial thickening is similar to previous. Mild scarring/atelectasis is seen a t the lung bases. The lungs and pleural spaces are otherwise clear. There is no pneumothorax. The ske letal structures are osteopenic. The bony thorax appears intact. IMPRESSION: Cardiomegaly with no active disease in the chest. ACT 112: Negative or not required by law. Electronically signed by: Benny Chacko M.D. 11/02/2022 11:53 AM
[2022-11-02] MEDS: guaiFENesin 600 MG TABCR PO SCH ×2 (11:57→20:12)
[2022-11-02] MEDS: OSELTAMIVIR PHOSPHATE SUSP 30 MG/5 ML UDP PO SCH ×2 (11:57→20:19)
--- NOTE | 2022-11-02 14:38 | Hospitalist Progress Note ---
Date of Service November 02, 2022 Assessment & Plan (1) Influenza A: (2) Asthma exacerbation: (3) Hypoxia: Plan: Per Dr. Gan's notes with addendum: Patient is 81 y/o F with PMH asthma, DM II, HTN, dyslipidemia, CLAUDINE, depression, breast cancer s/p partial mastectomy and radiation presented to ER with c/o cough, wheezing, chills, myalgias x 2 days. In ER noted to be hypoxic on room air at 87% increased to 96% on 2L via NC No leukocytosis. +influenza A PCR CXR: no acute infiltrate 11/02 (+) wheeze again today resume Solumedrol IV 40mg q12h add Mucinex BID Continue nebs Continue doxycycline, Tamiflu continue Breo (4) Hypokalemia: Plan: Potassium 4.0 (5) Diabetes mellitus, type II: Plan: A1c: 6.8 on 08/16/22 Diet controlled. Not on medication Basal bolus insulin per protocol BSG 70 (6) Hypertension: Plan: Continue losartan, atenolol Hold HCTZ (7) Bilateral malignant neoplasm of breast in female: Plan: S/P partial mastectomy, radiation Continue anastrozole (8) Sleep apnea: Plan: CPAP HS (9) Depression: Plan: Continue escitalopram DVT Prophylaxis Lovenox SQ Full Code Admission and Anticipated Discharge Date Admission Date: October 30, 2022 Subjective ff up for asthma exacerbation, etc seen resting in bed, comfortable on room air states she feels ok overall still having cough, with white sputum no chest pain Review of Systems Review of Systems: all noted and negative except for above Physical Exam Physical Exam: General- oriented x 3, not in distress, speaks in sentences with no effort or accessory muscle use Eyes- anicteric Neck- no JVD Lungs- (+) BL moderate wheeze, R>L Heart- normal rate, regular rhythm; no murmurs Abdomen- normal bowel sounds, nondistended, soft, nontender Extremities- no pretibial edema, no calf tenderness Neuro- alert, oriented x 3; no gross focal neurologic deficits Skin- warm & dry Results & Data Results & Data ([facility]) Vital Signs (Past 12 Hours) Vital Signs Temp Pulse Pulse Pulse Pulse Pulse Resp 11/02/22 08:00 11/02/22 11:17 68 16 11/02/22 09:19 78 76 72 11/02/22 07:30 36.3 C L 63 18 11/02/22 07:32 60 16 Resp Resp Resp BP Pulse Ox Pulse Ox Pulse Ox 11/02/22 08:00 11/02/22 11:17 91 11/02/22 09:19 18 18 16 90 92 11/02/22 07:30 163/82 H 93 11/02/22 07:32 62 L Pulse Ox O2 Del Method 11/02/22 08:00 Room Air 11/02/22 11:17 Room Air 11/02/22 09:19 92 11/02/22 07:30 Room Air 11/02/22 07:32 Room Air all noted and reviewed including below
[2022-11-02] MEDS: methylPREDNISolone 40 MG in SYRINGE 0 ML IV SCH (17:50)
[2022-11-02] MEDS: ATORVASTATIN 20 MG TAB PO SCH (20:12)
[2022-11-02] MEDS: CETIRIZINE HCL 10 MG TABLET PO SCH (20:12)
[2022-11-02] MEDS: ENOXAPARIN INJ 40 MG/0.4 ML SYR SQ SCH (20:13)
[2022-11-02 21:11] VITALS: TEMP 97.7
[2022-11-02] MEDS ORDERED: LANTUS PER UNIT CHARGE SQ ONE (21:45)
[2022-11-03] MEDS ORDERED: INSULIN ASPART PER UNIT SC SCH (01:00)
[2022-11-03] MEDS: methylPREDNISolone 40 MG in SYRINGE 0 ML IV SCH (05:39)
[2022-11-03 07:36] VITALS: BP 168/75
[2022-11-03] MEDS: ALBUT/IPRATROP 3MG/0.5MG NEB 3 ML VIAL NEB SCH ×2 (07:38→11:11)
[2022-11-03] MEDS: FLUTICASONE/VILANTEROL 100/25MCG 14 PUFFS/INHALER INH SCH (07:58)
[2022-11-03] MEDS: FLUTICASONE PROPIONATE NA SPR 16 GM BTL SCH (07:58)
[2022-11-03] MEDS: DOXYCYCLINE HYCLATE 100 MG CAP PO SCH (09:27)
[2022-11-03] MEDS: ANASTROZOLE 1 MG TAB PO SCH (09:27)
[2022-11-03] MEDS: PANTOprazole 40 MG TAB PO SCH (09:27)
[2022-11-03] MEDS: ESCITALOPRAM OXALATE 20 MG TAB PO SCH (09:27)
[2022-11-03] MEDS: OMEGA-3 (PURIFIED FISH OIL) 1 GM CAP PO SCH (09:27)
[2022-11-03] MEDS: CALCIUM 600MG + VIT D 400 IU TAB PO SCH (09:27)
[2022-11-03] MEDS: guaiFENesin 600 MG TABCR PO SCH (09:27)
[2022-11-03] MEDS: LOSARTAN POTASSIUM 25 MG TAB PO SCH (09:27)
[2022-11-03] MEDS: ATENOLOL 25 MG TABLET PO SCH (09:27)
[2022-11-03] MEDS: GABAPENTIN 300 MG CAP PO SCH (09:29)
[2022-11-03] MEDS: INSULIN ASPART PER UNIT SC SCH (09:32)
--- NOTE | 2022-11-03 10:54 | Hospitalist Progress Note ---
Date of Service November 03, 2022 Assessment & Plan (1) Influenza A: (2) Asthma exacerbation: (3) Hypoxia: Plan: Per Dr. Gan's notes with addendum: Patient is 81 y/o F with PMH asthma, DM II, HTN, dyslipidemia, CLAUDINE, depression, breast cancer s/p partial mastectomy and radiation presented to ER with c/o cough, wheezing, chills, myalgias x 2 days. In ER noted to be hypoxic on room air at 87% increased to 96% on 2L via NC No leukocytosis. +influenza A PCR CXR: no acute infiltrate 11/02 (+) wheeze again today resume Solumedrol IV 40mg q12h add Mucinex BID Continue nebs Continue doxycycline, Tamiflu continue Breo 11/03 wheezing is better transition to: Prednisone 40 mg po daily x 3 days, then 20 mg po daily x 3 days, then stop continue Tamiflu x 1 1/2 days to complete 5 days continue Doxycycline 100mg BID x 3 days to complete 7 days Levalbuterol neb TID x 3 days, then PRN only continue Breo continue Flutter Valve, Incentive Spirometry ff up with PCP in 1 week (4) Hypokalemia: Plan: Potassium 4.0 (5) Diabetes mellitus, type II: Plan: A1c: 6.8 on 08/16/22 Diet controlled. Not on medication given Lantus and ISS (6) Hypertension: Plan: Continue losartan, atenolol, HCTZ (7) Bilateral malignant neoplasm of breast in female: Plan: S/P partial mastectomy, radiation Continue anastrozole (8) Sleep apnea: Plan: CPAP HS (9) Depression: Plan: Continue escitalopram DVT Prophylaxis Lovenox SQ Full Code plan of care discussed with patient in detail and at length all questions answered she is understanding, agreeable, comfortable with the plan of care Admission and Anticipated Discharge Date Admission Date: October 30, 2022 Subjective ff up for asthma exacerbation, etc seen sitting in chair, comfortable, in good spirits states she feels much better overall on room air breathing is better, cough is less no fever/chills, chest pain, leg pain no other symptoms Review of Systems Review of Systems: all noted and negative except for above Physical Exam Physical Exam: General- oriented x 3, not in distress, speaks in sentences with no effort or accessory muscle use Eyes- anicteric Neck- no JVD Lungs- faint wheeze BL no crackles good air entry bilaterally Heart- normal rate, regular rhythm; no murmurs Abdomen- normal bowel sounds, nondistended, soft, no tenderness Extremities- no pretibial edema, no calf tenderness Neuro- alert, oriented x 3; no gross focal neurologic deficits Skin- warm & dry Results & Data Results & Data ([facility]) Vital Signs (Past 12 Hours) Vital Signs Temp Pulse Resp BP Pulse Ox O2 Del Method 11/03/22 07:38 74 16 92 Room Air 11/03/22 07:34 36.5 C 56 L 16 168/75 H 93 Room Air
[2022-11-03 11:13] VITALS: O2SAT 95
[2022-11-03 11:35] VITALS: PULSE 66
[2022-11-03] MEDS ORDERED: hydroCHLOROthiazide 25 MG TAB PO SCH (11:45)
[2022-11-03] MEDS: CHOLECALCIFEROL 1,000 UNITS 25 MCG TAB PO SCH (11:57)
[2022-11-03] MEDS: OSELTAMIVIR PHOSPHATE SUSP 30 MG/5 ML UDP PO SCH (11:57)
--- NOTE | 2022-11-18 17:11 | Discharge Summary ---
Discharge Summary Date of Service November 18, 2022 Delayed entry, date of service 11/03/2022 Notes For Next Care Provider Medication Changes From Visit Prednisone 40 mg po daily x 3 days, then 20 mg po daily x 3 days, then stop continue Tamiflu x 1 1/2 days to complete 5 days continue Doxycycline 100mg BID x 3 days to complete 7 days Levalbuterol neb TID x 3 days, then PRN only Admission HPI Per Admitting Provider Patient is 81 y/o F with PMH asthma, DM II, HTN, dyslipidemia, CLAUDINE, depression, breast cancer s/p partial mastectomy and radiation presented to ER with c/o cough, wheezing x 2 days. Patient states 3 days ago started with some fatigue symptoms. 2 days ago started with clear productive cough, SOB, JENNINGS, myalgias, chills, sweats, nasal congestion. She did not check temperature. Has been having wheezing and used albuterol inhaler twice with limited relief. Reports coughing so much that her ribs are sore. Had one episode of post tussive emesis. No known ill contacts. Had influenza vaccine this season. Denies diarrhea, constipation, dizziness, syncope, vision changes, neck pain, orthopnea, palpitations, hemoptysis, sore throat, choking, otalgia, abdominal pain, paresthesias, weakness, extremity weakness, extremity edema, rashes, urinary symptoms. Admission Exam Per Admitting Provider General: no acute distress on current 2L oxygen, obese Head: normocephalic, atraumatic Eyes: conjunctiva non-injected, anicteric ENT: normal inspection external ears, nose, +boggy turbinates bilaterally, mucous membranes moist Neck: supple, trachea midline Lungs: No respiratory distress on 2L via NC, +diffuse wheezing throughout, no rales or rhonchi CV: RRR, no murmur, no pretibial edema Abd: normal BS, soft, non-tender Ext: no cyanosis, no calf tenderness Neuro: A&O x 3, no focal deficits noted, normal affect Skin: warm, dry Principal Dx & Hospital Course #1 = Principal Diagnosis (1) Influenza A: (2) Asthma exacerbation: (3) Hypoxia: Per Dr. Gan's notes with addendum: Patient is 81 y/o F with PMH asthma, DM II, HTN, dyslipidemia, CLAUDINE, depression, breast cancer s/p partial mastectomy and radiation presented to ER with c/o cough, wheezing, chills, myalgias x 2 days. In ER noted to be hypoxic on room air at 87% increased to 96% on 2L via NC No leukocytosis. +influenza A PCR CXR: no acute infiltrate 11/02 (+) wheeze again today resume Solumedrol IV 40mg q12h add Mucinex BID Continue nebs Continue doxycycline, Tamiflu continue Breo 11/03 wheezing is better transition to: Prednisone 40 mg po daily x 3 days, then 20 mg po daily x 3 days, then stop continue Tamiflu x 1 1/2 days to complete 5 days continue Doxycycline 100mg BID x 3 days to complete 7 days Levalbuterol neb TID x 3 days, then PRN only continue Breo continue Flutter Valve, Incentive Spirometry ff up with PCP in 1 week (4) Hypokalemia: Potassium 4.0 (5) Diabetes mellitus, type II: A1c: 6.8 on 08/16/22 Diet controlled. Not on medication given Lantus and ISS (6) Hypertension: Continue losartan, atenolol, HCTZ (7) Bilateral malignant neoplasm of breast in female: S/P partial mastectomy, radiation Continue anastrozole (8) Sleep apnea: CPAP HS (9) Depression: Continue escitalopram DVT Prophylaxis Lovenox SQ Full Code plan of care discussed with patient in detail and at length all questions answered she is understanding, agreeable, comfortable with the plan of care Discharge Exam General- oriented x 3, not in distress, speaks in sentences with no effort or accessory muscle use Eyes- anicteric Neck- no JVD Lungs- faint wheeze BL no crackles good air entry bilaterally Heart- normal rate, regular rhythm; no murmurs Abdomen- normal bowel sounds, nondistended, soft, no tenderness Extremities- no pretibial edema, no calf tenderness Neuro- alert, oriented x 3; no gross focal neurologic deficits Skin- warm & dry Updated Medication List Medication Instructions Recorded Confirmed Type atenolol 25 mg tablet (Tenormin) 25 mg PO QAM 08/18/18 11/16/22 History atorvastatin 20 mg tablet (Lipitor) 20 mg PO HS 08/18/18 11/16/22 History hydrochlorothiazide 25 mg tablet 25 mg PO QAM 08/18/18 11/16/22 History losartan 25 mg tablet (Cozaar) 25 mg PO QAM 08/18/18 11/16/22 History albuterol sulfate 90 mcg/actuation 2 puff inhalation Q4H PRN 06/18/19 11/16/22 History aerosol inhaler (Ventolin HFA) Shortness Of Breath acetaminophen 650 mg 650 mg PO DIRECTED PRN Pain 03/16/20 11/16/22 History tablet,extended release (Tylenol Arthritis Pain) fluticasone 250 mcg-salmeterol 50 1 puffs inhalation BID 03/16/20 11/16/22 History mcg/dose blistr powdr for inhalation (Advair Diskus) gabapentin 300 mg capsule 300 mg PO TID 07/31/20 11/16/22 History anastrozole 1 mg tablet (Arimidex) 1 mg PO QAM 08/31/20 11/16/22 History azelastine 205.5 mcg (0.15 %) 2 spray intranasal BID 12/18/20 11/16/22 History nasal spray bumetanide 1 mg tablet 1 mg PO DAILY PRN Edema 12/18/20 11/16/22 History cholecalciferol (vitamin D3) 25 1,000 unit PO QAM 12/18/20 11/16/22 History mcg (1,000 unit) capsule (Vitamin D3) escitalopram oxalate 20 mg tablet 20 mg PO QAM 12/18/20 11/16/22 History cetirizine 10 mg tablet (Zyrtec) 10 mg PO HS 05/24/22 11/16/22 History alcaftadine 0.25 % eye drops 1 drp ophthalmic (eye) DAILY PRN 10/30/22 11/16/22 History (Lastacaft) NEEDED calcium carbonate 500 mg-vitamin 1 tab PO BID 10/30/22 11/16/22 History D3 3.125 mcg (125 unit) tablet ibuprofen 200 mg tablet 200 mg PO Q4H PRN Pain 10/30/22 11/16/22 History ipratropium bromide 21 mcg (0.03 2 spray intranasal BID PRN 10/30/22 11/16/22 History %) nasal spray CONGESTION/POSTNASAL DRIP omega 3-hag-dlh-fish oil 1,200 mg 1 cap PO DAILY 10/30/22 11/16/22 History (144 mg-216 mg) capsule (Fish Oil) propylene glycol 0.6 % eye drops 1 drp ophthalmic (eye) DIRECTED 10/30/22 11/16/22 History (Systane Complete) PRN Dry Eyes vitamin B complex 1 tab PO DAILY 10/30/22 11/16/22 History ipratropium 0.5 mg-albuterol 3 mg 3 ml NEB TID 7 days #90 mL 11/03/22 11/16/22 Rx (2.5 mg base)/3 mL nebulization soln codeine 10 mg-guaifenesin 100 mg/5 5 ml PO Q6H PRN allergy symptoms 11/16/22 Rx mL oral liquid #120 mL prednisone 20 mg tablet 20 mg PO DAILY 11/16/22 11/16/22 History promethazine-DM 6.25 mg-15 mg/5 mL 5 ml PO Q6H #118 mL 11/16/22 Rx oral syrup Hospital Stay Data Consultations 10/30/22 16:26 ED Decision to Admit Stat Pending Results Patient Have Any Pending Studies at Discharge: Yes Discharge Instructions Given to Patient (Per Discharging Provider) PLEASE REFER TO YOUR NEW MEDICATION LIST AND FOLLOW INSTRUCTIONS CAREFULLY. YOUR NEW MEDICATIONS INCLUDE: Prednisone 40 mg po daily x 3 days, then 20 mg po daily x 3 days, then stop continue Tamiflu x 1 1/2 days to complete 5 days continue Doxycycline 100mg BID x 3 days to complete 7 days Levalbuterol neb TID x 3 days, then PRN only continue Breo continue Flutter Valve, Incentive Spirometry PLEASE CALL YOUR PRIMARY CARE PHYSICIAN OR RETURN TO THE ER IF WITH WORSENING OF SYMPTOMS, INCLUDING shortness of breath, cough, sputum production, fever/chills, chest pain, leg swelling, etc FOLLOW UP WITH PRIMARY CARE PHYSICIAN in 1 week. The clinic will be calling you soon for the appointment schedule. Total Time Total Time Spent Total Time Spent (In Minutes): >30 minutes
== END 2022-11-03 13:30 | disposition home or self-care (01) ==
LOC: ED 13:24 → INTOOBSV 17:14 → 3W 17:14 → SUATTDRO 17:14 → 3W 20:59